=== PATIENT | female | born 1990 | race Caucasian/White ===

== ENCOUNTER 2017-09-08 22:53 | Emergency (ER) | payer BC, MEDICAID ==
[~2017-09-08] VITALS: Ht 162.6 cm; Wt 99.8 kg
[~2017-09-08 22:53] MED LIST: DULO20CA PO; DULO20CA18 PO; IBP800T PO; IBUP-1773 PO; IBUP-30 PO; NAPR500T3 PO; PREN1TAB86 PO; SULF1TAB35 PO; TRAM-42 PO; TRAM50TA2 PO
[2017-09-09] MEDS ORDERED: NS IV 1000 ML 1,000 ML IV ONE (00:11)
[2017-09-09] MEDS ORDERED: KETOROLAC 30 MG/ML VIAL IVP STA (00:11)
--- NOTE | 2017-09-09 00:12 | ED GU-Female ---
General Chief Complaint: Abdominal/GI Problems Stated Complaint: R SIDE PELVIC PAIN Nursing Triage Note: right lower abdominal pain x4hrs. Nursing Sepsis Screen: No Definite Risk Source: patient Exam Limitations: no limitations (SYLWIA AUSTIN) History of Present Illness Time seen by provider: 00:02 Initial Comments 26 yo female patient presents to the ED with c/o RLQ pain x4 hours. Reports a h /o similar pain with ruptured ovarian cysts, but states on this occasion pain is worse with a deep breath. Denies fever, chills, n/v/d. Timing/Duration: getting worse, other (4 hour onset) Severity/Quality: aching, sharp Location: RLQ Radiation: LLQ, suprapubic Activities at Onset: none Prior Genitourinary Problems: similar symptoms Modifying Factors: Worsens With Movement, Worsens With Palpation (SYLWIA AUSTIN) Allergies and Home Medications Allergies Coded Allergies: sulfamethoxazole (Verified Allergy, Intermediate, NAUSEA, 10/01/16) NAUSEA/VOMITING trimethoprim (Verified Allergy, Intermediate, NAUSEA, 10/01/16) NAUSEA/VOMITING Home Medications No Active Prescriptions or Reported Meds Constitutional: No chills, No dizziness, No fever, No malaise EENTM: no symptoms reported Respiratory: No cough, No short of breath Cardiovascular: No chest pain, No edema, No palpitations, No syncope Gastrointestinal: abdominal pain, No constipation, No diarrhea, No melena, No nausea, No vomiting Genitourinary: denies burning, denies discharge, denies dysuria, denies frequency, denies flank pain, denies hematuria : No LMP: Aug 25, 2017 Musculoskeletal: No back pain Skin: no symptoms reported Psychiatric/Neurological: No Symptoms Reported (SYLWIA AUSTIN) All Other Systemes Reviewed Negative Unless Noted: Yes (Negative excepted noted.) (SYLWIA AUSTIN) Past Mrxdyoh-Kvlepy-Cykdxm Hx Patient Social History Alcohol Use: Rarely Uses Recreational Drug Use: No Smoking Status: Never a Smoker 2nd Hand Smoke Exposure: No Recent Foreign Travel: No Contact w/Someone Who Travel: No Recent Infectious Disease Expo: No Recent Hopitalizations: No (SYLWIA AUSTIN) Immunizations Up To Date Tetanus Booster (TDap): Less than 5yrs PED Vaccines UTD: Yes Date of Influenza Vaccine: Aug 20, 2016 (SYLWIA AUSTIN) Seasonal Allergies Seasonal Allergies: No (SYLWIA AUSTIN) Surgeries History of Surgeries: No (SYLWIA AUSTIN) Respiratory History of Respiratory Disorde: No Currently Using CPAP: No Currently Using BIPAP: No (SYLWIA AUSTIN) Cardiovascular History of Cardiac Disorders: No (SYLWIA AUSTIN) Neurological History of Neurological Disord: No (SYLWIA AUSTIN) Reproductive System : No Hx Reproductive Disorders: No Sexually Transmitted Disease: No HIV/AIDS: No Female Reproductive Disorders: Denies (SYLWIA AUSTIN) Genitourinary History of Genitourinary Disor: No (SYLWIA AUSTIN) Gastrointestinal History of Gastrointestinal Di: No (SYLWIA AUSTIN) Musculoskeletal History of Musculoskeletal Dis: No Musculoskeletal Disorders: Chronic Back Pain (SYLWIA AUSTIN) Endocrine History of Endocrine Disorders: No (SYLWIA AUSTIN) HEENT History of HEENT Disorders: No Loss of Vision: Bilateral (SYLWIA AUSTIN) Cancer History of Cancer: No (SYLWIA AUSTIN) Psychosocial History of Psychiatric Problem: No (SYLWIA AUSTIN) Integumentary History of Skin or Integumenta: No (SYLWIA AUSTIN) Blood Transfusions History of Blood Disorders: No Adverse Reaction to a Blood Tr: No (SYLWIA AUSTIN) Reviewed Nursing Assessment Reviewed/Agree w Nursing PMH: Yes (SYLWIA AUSTIN) Family Medical History Significant Family History: No Pertinent Family Hx Family Medial History: JOLIE 19 MOTHER Diabetes mellitus 19 MOTHER ENDOMETREAL 19 MOTHER FH: breast cancer in first degree relative Hypercholesterolemia 19 FATHER Hypertension 19 FATHER Malignant neoplasm of endometrium (SYLWIA AUSTIN) Family Medial History: JOLIE 19 MOTHER Diabetes mellitus 19 MOTHER ENDOMETREAL 19 MOTHER FH: breast cancer in first degree relative Hypercholesterolemia 19 FATHER Hypertension 19 FATHER Malignant neoplasm of endometrium (RODRIGUEZ CACERES) Physical Exam Vital Signs Vital Sign - Last 12Hours 09/08/17 23:43 Temp 97.8 Pulse 73 Resp 18 B/P (MAP) 130/95 Pulse Ox 98 O2 Delivery Room Air (RODRIGUEZ CACERES) Vital Signs Capillary Refill : Less Than 3 Seconds (SYLWIA AUSTIN) General Appearance: WD/WN, no apparent distress HEENT: PERRL/EOMI, pharynx normal Neck: supple, normal inspection Cardiovascular: normal peripheral pulses, regular rate, rhythm, no edema, no murmur Respiratory: lungs clear, normal breath sounds, no respiratory distress, no accessory muscle use Gastrointestinal: normal bowel sounds, soft, no organomegaly, No distended, guarding (RLQ and suprapubic), No rebound, tenderness (BLQ and suprapubic) Back: normal inspection, no vertebral tenderness, CVA tenderness (R), No CVA tenderness (L) Neurologic/Psychiatric: alert, normal mood/affect, oriented x 3 Skin: normal color, warm/dry (SYLWIA AUSTIN) Progress/Results/Core Measures Results/Orders Lab Results Laboratory Tests Test 09/09/17 00:58 Range/Units White Blood Count 12.8 H 4.3-11.0 10^3/uL Red Blood Count 4.98 4.35-5.85 10^6/uL Hemoglobin 14.3 11.5-16.0 G/DL Hematocrit 44 35-52 % Mean Corpuscular Volume 87 80-99 FL Mean Corpuscular Hemoglobin 29 25-34 PG Mean Corpuscular Hemoglobin Concent 33 32-36 G/DL Red Cell Distribution Width 13.4 10.0-14.5 % Platelet Count 323 130-400 10^3/uL Mean Platelet Volume 10.4 7.4-10.4 FL Neutrophils (%) (Auto) 60 42-75 % Lymphocytes (%) (Auto) 30 12-44 % Monocytes (%) (Auto) 8 0-12 % Eosinophils (%) (Auto) 1 0-10 % Basophils (%) (Auto) 0 0-10 % Neutrophils # (Auto) 7.7 1.8-7.8 X 10^3 Lymphocytes # (Auto) 3.9 1.0-4.0 X 10^3 Monocytes # (Auto) 1.1 H 0.0-1.0 X 10^3 Eosinophils # (Auto) 0.1 0.0-0.3 10^3/uL Basophils # (Auto) 0.0 0.0-0.1 10^3/uL Sodium Level 140 135-145 MMOL/L Potassium Level 3.7 3.6-5.0 MMOL/L Chloride Level 104 98-107 MMOL/L Carbon Dioxide Level 22 21-32 MMOL/L Anion Gap 14 5-14 MMOL/L Blood Urea Nitrogen 9 7-18 MG/DL Creatinine 0.83 0.60-1.30 MG/DL Estimat Glomerular Filtration Rate > 60 BUN/Creatinine Ratio 11 Glucose Level 89 70-105 MG/DL Calcium Level 9.7 8.5-10.1 MG/DL Total Bilirubin 0.3 0.1-1.0 MG/DL Aspartate Amino Transf (AST/SGOT) 15 5-34 U/L Alanine Aminotransferase (ALT/SGPT) 16 0-55 U/L Alkaline Phosphatase 57 40-136 U/L C-Reactive Protein High Sensitivity 0.38 0.00-0.50 MG/DL Total Protein 8.4 H 6.4-8.2 GM/DL Albumin 4.7 H 3.2-4.5 GM/DL (RODRIGUEZ CACERES) Medications Given in ED Current Medications Medications Dose Ordered Sig/Joo Route Start Time Stop Time Status Last Admin Dose Admin Sodium Chloride 1,000 ml @ 0 mls/hr Q0M ONCE IV 09/09/17 00:11 09/09/17 00:12 DC 09/09/17 01:10 999 MLS/HR (RODRIGUEZ CACERES) Vital Signs/I&O Vital Sign - Last 12Hours 09/08/17 23:43 Temp 97.8 Pulse 73 Resp 18 B/P (MAP) 130/95 Pulse Ox 98 O2 Delivery Room Air (RODRIGUEZ CACERES) Blood Pressure Mean: 107 Progress Note : Time: 03:18 Progress Note Patient has not produced urine yet however she is no longer having any pain and we discussed results the ultrasound and she does not want to wait around for her urine. She says she will follow up with her primary care physician. (RODRIGUEZ CACERES) Diagnostic Imaging Diagonstic Imaging: Ultrasound Plain Films/CT/US/NM/MRI: pelvis Reviewed: Reviewed by Me (radiology report reviewed by me) (SYLWIA AUSTIN) Comments Uterus cervix is normal in size with a prominent endometrium measuring 1.5 cm without myometrial masses. Right and left ovaries are not visualized there is no free fluids. No acute findings. Ovaries were not visualized. (RODRIGUEZ CACERES) Departure Impression Impression: Primary Impression: Abdominal pain Qualified Codes: R10.9 - Unspecified abdominal pain Disposition: HOME, SELF-CARE Condition: Improved Departure-Patient Inst. Decision time for Depature: 03:19 (RODRIGUEZ CACERES) Referrals: MELIDA SUTTON DO (PCP) Primary Care Physician DEAN TATUM (Family) Primary Care Physician Patient Instructions: Acute Abdomen (Belly Pain), Adult (DC) Add. Discharge Instructions: Drink plenty of fluids and if your symptoms return or you start to have new or worsening symptoms such as fever, nausea vomiting then you should follow up with your primary care physician. All discharge instructions reviewed with patient and/or family. Voiced understanding. Scripts No Active Prescriptions or Reported Meds Copy Copies To 1: MELIDA SUTTON GRETCHEN L PA Sep 09, 2017 00:12 RODRIGUEZ CACERES Sep 09, 2017 03:21
[2017-09-09 01:10] LABS: BASOPHILS % (AUTO) 0 % (0-10); EOSINOPHILS # (AUTO) 0.1 10^3/uL (0.0-0.3); EOSINOPHILS % (AUTO) 1 % (0-10); LYMPHOCYTES # (AUTO) 3.9 X 10^3 (1.0-4.0); LYMPHOCYTES % (AUTO) 30 % (12-44); MEAN CORPUSCULAR HEMOGLOBIN 29 PG (25-34); MEAN CORPUSCULAR HGB CONC 33 G/DL (32-36); MEAN CORPUSCULAR VOLUME 87 FL (80-99); MEAN PLATELET VOLUME 10.4 FL (7.4-10.4); MONOCYTES # (AUTO) 1.1 X 10^3 (0.0-1.0); MONOCYTES % (AUTO) 8 % (0-12); NEUTROPHILS # (AUTO) 7.7 X 10^3 (1.8-7.8); NEUTROPHILS % (AUTO) 60 % (42-75); PLATELET COUNT 323 10^3/uL (130-400); RED BLOOD COUNT 4.98 10^6/uL (4.35-5.85); RED CELL DISTRIBUTION WIDTH 13.4 % (10.0-14.5); WHITE BLOOD COUNT 12.8 10^3/uL (4.3-11.0)
[2017-09-09 01:39] LABS: ALANINE AMINOTRANSFERASE 16 U/L (0-55); ALBUMIN 4.7 GM/DL (3.2-4.5); ANION GAP 14 MMOL/L (5-14); ASPARTATE AMINO TRANSFERASE 15 U/L (5-34); BILIRUBIN,TOTAL 0.3 MG/DL (0.1-1.0); BLOOD UREA NITROGEN 9 MG/DL (7-18); BUN/CREATININE RATIO 11; CALCIUM 9.7 MG/DL (8.5-10.1); CARBON DIOXIDE 22 MMOL/L (21-32); CHLORIDE 104 MMOL/L (98-107); CREATININE SERUM 0.83 MG/DL (0.60-1.30); GFR ESTIMATED > 60; GLUCOSE 89 MG/DL (70-105); POTASSIUM 3.7 MMOL/L (3.6-5.0); SODIUM 140 MMOL/L (135-145); TOTAL PROTEIN 8.4 GM/DL (6.4-8.2); hs C REACTIVE PROTEIN 0.38 MG/DL (0.00-0.50)
[2017-09-09 03:28] VITALS: BP 123/93
--- OUTSIDE RECORDS SUMMARY | 2017-09-09 06:43 | XMS REPORT ---
Author Author COURT HAGEN [facility] Address [address] [place] [address] Care Team Providers Care Machine Shop Helper Name Role Phone COURT HAGEN Unavailable PROBLEMS Type Condition ICD9-CM Code [id number] Code Onset Dates Condition Status SNOMED Code Problem Gestational hypertension, third trimester O13.3 Active 91648914 Problem care in third trimester Z34.93 Active 658202182 Assessment depression F53 Oct, Active 31059708 Problem Family history of breast cancer in mother Z80.3 Active 008758723 Problem History of mixed hyperlipidemia Z86.39 Active 315406088 ALLERGIES Substance Reaction Event Type Date Status Bactrim nausea/vomiting Drug Allergy Oct, Active SOCIAL HISTORY No smoking Hx information available PLAN OF CARE VITAL SIGNS MEDICATIONS Unknown Medications RESULTS No Results PROCEDURES Procedure Date Ordered Related Diagnosis Body Site Psych diagnostic evaluation, new patient Nov 05, 2016 IMMUNIZATIONS No Known Immunizations
--- OUTSIDE RECORDS SUMMARY | 2017-09-09 06:43 | XMS REPORT ---
Author Author JENNY JAIME [facility] eClinicalWorks Address Unknown Phone Unavailable Care Team Providers Care Dock Boss Name Role Phone JENNY JAIME Unavailable Allergies No Known Allergies Problems Problem Type Condition Code Onset Dates Condition Status Problem Other benign neoplasm of skin, unspecified D23.9 Active Problem Abnormal glucose R73.09 Active Problem Obesity, unspecified E66.9 Active Problem Family history of diabetes mellitus Z83.3 Active Problem Fibrocystic changes of left breast N60.12 Active Problem OCP (oral contraceptive pills) initiation Z30.9 Active Problem Family history of malignant neoplasm of endometrium Z80.49 Active Problem Right-sided low back pain with right-sided sciatica M54.41 Active Problem Fibrocystic changes of right breast N60.11 Active Problem Family history of breast cancer Z80.3 Active Assessment Yeast infection B37.9 Active Problem Low back pain M54.5 Active Problem Cervical back pain with evidence of disc disease M50.90 Active Medications Medication Code System Code Instructions Start Date End Date Status Dosage Diflucan [facility] [address]-90 150 MG Orally Oct 01, 2015 Oct 02, 2015 1 tablet Results No Known Results Summary Purpose eClinicalWorks Submission
--- OUTSIDE RECORDS SUMMARY | 2017-09-09 06:43 | XMS REPORT ---
Author Author CATY RILEY Organization eClinical[employer] Address Unknown Phone Unavailable Care Team Providers Care Senior Education Specialist Name Role Phone CATY RILEY CP Unavailable Allergies, Adverse Reactions, Alerts Substance Reaction Event Type Bactrim nausea/vomiting Drug Allergy Problems Problem Type Condition Code Onset Dates Condition Status Problem History of mixed hyperlipidemia Z86.39 Active Assessment screening for streptococcus B Z36 Active Problem Family history of breast cancer in mother Z80.3 Active Assessment Normal , first Z34.00 Active Assessment 36 weeks gestation of Z3A.36 Active Medications Medication Code System Code Instructions Start Date End Date Status Dosage Tylenol [facility] [address]-48 325 MG Orally every 6 hrs 2 tablets as needed Vitamin [facility] [address] 27-0.8 MG Orally not defined Procedures Procedure Coding System Code Date DETECT AGNT MULT, DNA, AMPLI CPT-4 44006 Sep 10, 2016 Office Visit, Est Pt., Level 3 CPT-4 12722 Sep 10, 2016 URINE-NO MICRO CPT-4 53403 Sep 10, 2016 Vital Signs Date/Time: Sep 10, 2016 Cardiac Monitoring Heart Rate 100 bpm Weight 244 lbs Height 63 in BMI 43.223 Index Blood Pressure Diastolic 83 mmHg Blood Pressure Systolic 132 mmHg Results Name Result Date Reference Range Unit Abnormality Flag UA OB DIP (IN HOUSE) ----Glucose negative 20160910 ----Protein negative [id number] Summary Purpose eClinicalWorks Submission
--- OUTSIDE RECORDS SUMMARY | 2017-09-09 06:43 | XMS REPORT ---
Author Author CATY RILEY Organization [employer] Address Unknown Phone Unavailable Care Team Providers Care Five Roll Refiner Batch Mixer Name Role Phone CATY RILEY CP Unavailable Allergies, Adverse Reactions, Alerts Substance Reaction Event Type Bactrim nausea/vomiting Drug Allergy Problems Problem Type Condition Code Onset Dates Condition Status Problem care in third trimester Z34.93 Active Problem Family history of breast cancer in mother Z80.3 Active Problem Gestational hypertension, third trimester O13.3 Active Assessment Gestational hypertension, third trimester O13.3 Active Assessment 39 weeks gestation of Z3A.39 Active Problem History of mixed hyperlipidemia Z86.39 Active Assessment care in third trimester Z34.93 Active Medications Medication Code System Code Instructions Start Date End Date Status Dosage Vitamin [facility] [address] 27-0.8 MG Orally not defined Tylenol [facility] [address]-32 325 MG Orally every 6 hrs 2 tablets as needed Procedures Procedure Coding System Code Date URINE-NO MICRO CPT-4 45959 Oct 01, 2016 Office Visit, Est Pt., Level 2 CPT-4 27987 Oct 01, 2016 Vital Signs Date/Time: Oct 01, 2016 Cardiac Monitoring Heart Rate 80 bpm Weight 253 lbs Height 63 in BMI 44.817 Index Blood Pressure Diastolic 90 mmHg Blood Pressure Systolic 124 mmHg Results Name Result Date Reference Range Unit Abnormality Flag UA OB DIP (IN HOUSE) ----Glucose negative 20161001 ----Protein trace 20161001 Summary Purpose eClinicalWorks Submission
--- OUTSIDE RECORDS SUMMARY | 2017-09-09 06:43 | XMS REPORT ---
Author Author CATY RILEY e[employer] Address Unknown Phone Unavailable Care Team Providers Care Supervisor Shop Name Role Phone CATY RILEY CP Unavailable Allergies No Known Allergies Problems Problem Type Condition Code Onset Dates Condition Status Problem History of mixed hyperlipidemia Z86.39 Active Assessment care, first in third trimester Z34.03 Active Problem Family history of breast cancer in mother Z80.3 Active Assessment 37 weeks gestation of Z3A.37 Active Medications No Known Medications Procedures Procedure Coding System Code Date Office Visit, Est Pt., Level 2 CPT-4 10890 Sep 17, 2016 URINE-NO MICRO CPT-4 71763 Sep 17, 2016 Vital Signs Date/Time: Sep 17, 2016 Blood Pressure Systolic 126 mmHg Weight 247.8 lbs Height 63 in BMI 43.896 Index Blood Pressure Diastolic 78 mmHg Results Name Result Date Reference Range Unit Abnormality Flag UA OB DIP (IN HOUSE) ----Glucose negative 20160917 ----Protein negative 20160917 Summary Purpose eClinicalWorks Submission
--- OUTSIDE RECORDS SUMMARY | 2017-09-09 06:43 | XMS REPORT ---
Author Author DEAN TATUM Organization eClinical[employer] Address Unknown Phone Unavailable Care Team Providers Care Launching Pad Mechanic Name Role Phone DEAN TATUM CP Unavailable Allergies, Adverse Reactions, Alerts Substance Reaction Event Type Bactrim nausea/vomiting Drug Allergy Problems Problem Type Condition Code Onset Dates Condition Status Problem History of mixed hyperlipidemia Z86.39 Active Assessment Family history of breast cancer in mother Z80.3 Active Problem Family history of breast cancer in mother Z80.3 Active Assessment History of mixed hyperlipidemia Z86.39 Active Medications Medication Code System Code Instructions Start Date End Date Status Dosage Vitamin [facility] [address] 27-0.8 MG Orally not defined Tylenol [facility] [address]-40 325 MG Orally every 6 hrs 2 tablets as needed Procedures Procedure Coding System Code Date Office Visit, Est Pt., Level 3 CPT-4 92133 Jun 25, 2016 Vital Signs Date/Time: Jun 25, 2016 Cardiac Monitoring Heart Rate 78 bpm Weight 233.0 lbs Height 63 in BMI 41.27 Index Blood Pressure Diastolic 80 mmHg Blood Pressure Systolic 122 mmHg Results No Known Results Summary Purpose eClinicalWorks Submission
--- OUTSIDE RECORDS SUMMARY | 2017-09-09 06:43 | XMS REPORT ---
Author Author CATY RILEY eClinical[employer] Address Unknown Phone Unavailable Care Team Providers Care Agriculturist Name Role Phone CATY RILEY CP Unavailable Allergies No Known Allergies Problems Problem Type Condition Code Onset Dates Condition Status Problem History of mixed hyperlipidemia Z86.39 Active Assessment Rh negative status during , unspecified trimester O09.899 Active Problem Family history of breast cancer in mother Z80.3 Active Medications No Known Medications Procedures Procedure Coding System Code Date THER/PROPH/DIAG INJ, SC/IM CPT-4 77112 Jul 23, 2016 RH IG, FULL-DOSE, IM CPT-4 89052 Jul 23, 2016 Results No Known Results Summary Purpose eClinicalWorks Submission
--- OUTSIDE RECORDS SUMMARY | 2017-09-09 06:43 | XMS REPORT ---
Author Author CATY RILEY Organization [facility] Address [address] [place] [address] Care Team Providers Care Restorative Rehab Aide Name Role Phone HENNA RILEYHANY Unavailable PROBLEMS Type Condition ICD9-CM Code MSU56-WV Code Onset Dates Condition Status SNOMED Code Problem Migraine with aura and without status migrainosus, not intractable G43.109 Active 9307168 Problem Migraine without aura and without status migrainosus, not intractable G43.009 Active 934331776 Problem Family history of breast cancer in mother Z80.3 Active 232816513 Problem History of gestational hypertension Z87.59 Active 727103800 Problem History of mixed hyperlipidemia Z86.39 Active 147418303 ALLERGIES Substance Reaction Event Type Date Status Bactrim nausea/vomiting Drug Allergy Oct, Active SOCIAL HISTORY No smoking Hx information available PLAN OF CARE Activity Details Follow Up 2 Weeks Reason:Perineal infection VITAL SIGNS Height 63 in 2016-11-19 Weight 238.7 lbs 2016-11-19 Temperature 97.8 degrees Fahrenheit 2016-11-19 Heart Rate 76 bpm 2016-11-19 Respiratory Rate 18 2016-11-19 BMI 42.284 kg/m2 2016-11-19 Blood pressure systolic 118 mmHg 2016-11-19 Blood pressure diastolic 76 mmHg 2016-11-19 MEDICATIONS Medication Instructions Dosage Frequency Start Date End Date Duration Status Vitamin 27-0.8 MG Active Clindamycin HCl 300 MG Orally every 6 hrs 1 capsule 6h Oct,Nov 10 days Active RESULTS Name Result Date Reference Range CULTURE, GENITAL 2016-11-19 Genital Culture, Routine Final report Result 1 PROCEDURES Procedure Date Ordered Related Diagnosis Body Site Office Visit, Est Pt., Level 3 Nov 19, 2016 CULTURE, BACTERIA, OTHER Nov 19, 2016 IMMUNIZATIONS No Known Immunizations
--- OUTSIDE RECORDS SUMMARY | 2017-09-09 06:43 | XMS REPORT ---
Author Author DEAN TATUM Organization e[employer] Address Unknown Phone Unavailable Care Team Providers Care Medical Concierge Name Role Phone DEAN TATUM CP Unavailable Allergies No Known Allergies Problems Problem Type Condition Code Onset Dates Condition Status Problem History of mixed hyperlipidemia Z86.39 Active Problem Family history of breast cancer in mother Z80.3 Active Medications No Known Medications Vital Signs Date/Time: Sep 11, 2016 Blood Pressure Diastolic 82 mmHg Blood Pressure Systolic 127 mmHg Height 63 in Results No Known Results Summary Purpose eClinicalWorks Submission
--- OUTSIDE RECORDS SUMMARY | 2017-09-09 06:43 | XMS REPORT ---
Author Author CATY RILEY [facility] eClinicalWorks Address Unknown Phone Unavailable Care Team Providers Care Video Control Operator Name Role Phone CATY RILEY CP Unavailable Allergies, Adverse Reactions, Alerts Substance Reaction Event Type Bactrim nausea/vomiting Drug Allergy Problems Problem Type Condition Code Onset Dates Condition Status Problem History of mixed hyperlipidemia Z86.39 Active Assessment care, first in third trimester Z34.03 Active Problem Family history of breast cancer in mother Z80.3 Active Assessment 34 weeks gestation of Z3A.34 Active Assessment Encounter for immunization Z23 Active Medications Medication Code System Code Instructions Start Date End Date Status Dosage Tylenol [facility] [address]-83 325 MG Orally every 6 hrs 2 tablets as needed Vitamin [facility] [address] 27-0.8 MG Orally not defined Procedures Procedure Coding System Code Date Office Visit, Est Pt., Level 2 CPT-4 79265 Aug 27, 2016 TDAP (BOOSTRIX) CPT-4 36332 Aug 27, 2016 URINALYSIS, AUTO, W/O SCOPE CPT-4 46787 Aug 27, 2016 SINGLE IMMUNIZATION ADMIN CPT-4 53543 Aug 27, 2016 Vital Signs Date/Time: Aug 27, 2016 Cardiac Monitoring Heart Rate 84 bpm Weight 239.3 lbs Height 63 in BMI 42.39 Index Blood Pressure Diastolic 74 mmHg Blood Pressure Systolic 118 mmHg Results Name Result Date Reference Range Unit Abnormality Flag UA LONG DIP (IN HOUSE) ----CHARLIE negative 20160827 ----NIT negative 20160827 ----SG 1.025 20160827 ----KET trace 20160827 ----RED negative 20160827 ----GLU negative 20160827 ----Odor no 20160827 ----pH 6.5 20160827 ----BLO negative 20160827 ----URO 0.2 20160827 ----Protein negative 20160827 ----Lot # [id number] ----Exp date [id number] ----Clarity slightly cloudy 20160827 ----Color yellow 20160827 Immunizations Vaccine Administration Date TDAP (BOOSTRIX) Aug 27, 2016 Summary Purpose eClinicalWorks Submission
--- OUTSIDE RECORDS SUMMARY | 2017-09-09 06:44 | XMS REPORT ---
Author Author CATY RILEY eClinicalWorks Address Unknown Phone Unavailable Care Team Providers Care Engineering Systems Analyst Name Role Phone CATY RILEY CP Unavailable Allergies No Known Allergies Problems Problem Type Condition Code Onset Dates Condition Status Problem Low back pain M54.5 Active Problem Obesity, unspecified E66.9 Active Problem Cervical back pain with evidence of disc disease M50.90 Active Assessment 22 weeks gestation of Z3A.22 Active Assessment Second trimester Z33.1 Active Problem Oth diseases and conditions compl preg/chldbrth O99.89 Active Problem Underimmunization status Z28.3 Active Problem Rh negative state in antepartum period, first trimester O09.891 Active Problem Right-sided low back pain with right-sided sciatica M54.41 Active Problem Abnormal glucose R73.09 Active Problem Fibrocystic changes of left breast N60.12 Active Problem Fibrocystic changes of right breast N60.11 Active Medications Medication Code System Code Instructions Start Date End Date Status Dosage Vitamin [facility] [address] 27-0.8 MG Orally not defined Procedures Procedure Coding System Code Date Office Visit, Est Pt., Level 2 CPT-4 34226 June 05, 2016 URINE-NO MICRO CPT-4 74072 June 05, 2016 Vital Signs Date/Time: June 05, 2016 Cardiac Monitoring Heart Rate 80 bpm Weight 230.7 lbs Height 63 in Blood Pressure Diastolic 79 mmHg Blood Pressure Systolic 134 mmHg Results No Known Results Summary Purpose eClinicalWorks Submission
--- OUTSIDE RECORDS SUMMARY | 2017-09-09 06:44 | XMS REPORT ---
Author Author CATY RILEY [facility] eClinicalWorks Address Unknown Phone Unavailable Care Team Providers Care Supervisor Microfilm Duplicating Unit Name Role Phone CATY RILEY CP Unavailable Allergies No Known Allergies Problems Problem Type Condition Code Onset Dates Condition Status Problem care in third trimester Z34.93 Active Problem Family history of breast cancer in mother Z80.3 Active Problem Gestational hypertension, third trimester O13.3 Active Problem History of mixed hyperlipidemia Z86.39 Active Medications No Known Medications Results No Known Results Summary Purpose eClinicalWorks Submission
--- OUTSIDE RECORDS SUMMARY | 2017-09-09 06:44 | XMS REPORT ---
Author CATY Dias Organization eClinicalWorks Address Unknown Phone Unavailable Care Team Providers Care Laborer [employer] Name Role Phone CATY RILEY CP Unavailable Allergies, Adverse Reactions, Alerts Substance Reaction Event Type Bactrim nausea/vomiting Drug Allergy Problems Problem Type Condition Code Onset Dates Condition Status Problem Family history of breast cancer in mother Z80.3 Active Problem History of mixed hyperlipidemia Z86.39 Active Problem care in third trimester Z34.93 Active Assessment care in third trimester Z34.93 Active Assessment 38 weeks gestation of Z3A.38 Active Medications Medication Code System Code Instructions Start Date End Date Status Dosage Tylenol [facility] [address]-17 325 MG Orally every 6 hrs 2 tablets as needed Vitamin [facility] [address] 27-0.8 MG Orally not defined Procedures Procedure Coding System Code Date URINE-NO MICRO CPT-4 15183 Sep 24, 2016 Office Visit, Est Pt., Level 2 CPT-4 62863 Sep 24, 2016 Vital Signs Date/Time: Sep 24, 2016 Cardiac Monitoring Heart Rate 80 bpm Weight 251 lbs Height 63 in BMI 44.463 Index Blood Pressure Diastolic 84 mmHg Blood Pressure Systolic 130 mmHg Results Name Result Date Reference Range Unit Abnormality Flag UA OB DIP (IN HOUSE) ----Glucose negative [id number] ----Protein trace [id number] Summary Purpose eClinicalWorks Submission
--- OUTSIDE RECORDS SUMMARY | 2017-09-09 06:44 | XMS REPORT ---
Author Author NASH OSBORNE Organization [facility] Address [address] [place] [address] Care Team Providers Care Lead Software Architect Name Role Phone NASH OSBORNE Unavailable PROBLEMS Type Condition ICD9-CM Code [id number] Code Onset Dates Condition Status SNOMED Code Problem Migraine with aura and without status migrainosus, not intractable G43.109 Active 2919664 Problem Migraine without aura and without status migrainosus, not intractable G43.009 Active 455967413 Problem History of mixed hyperlipidemia Z86.39 Active 451049062 Problem History of gestational hypertension Z87.59 Active 554924570 Problem Family history of breast cancer in mother Z80.3 Active 426077573 ALLERGIES Substance Reaction Event Type Date Status Bactrim nausea/vomiting Drug Allergy Oct, Active SOCIAL HISTORY No smoking Hx information available PLAN OF CARE Activity Details Follow Up prn Reason: VITAL SIGNS Height 63 in 2016-11-05 Weight 236.4 lbs 2016-11-05 Temperature 98.4 degrees Fahrenheit 2016-11-05 Heart Rate 72 bpm 2016-11-05 Respiratory Rate 20 2016-11-05 BMI 41.87 kg/m2 2016-11-05 Blood pressure systolic 90 mmHg 2016-11-05 Blood pressure diastolic 60 mmHg 2016-11-05 MEDICATIONS Medication Instructions Dosage Frequency Start Date End Date Duration Status Amoxicillin 500 MG Orally every 12 hrs 1 capsule 12h 13 Oct, 2016 Oct, 10 day(s) Active RESULTS Name Result Date Reference Range STREP A (IN HOUSE) 2016-11-05 STREP A positive Control + Lot # [id number] Exp date PROCEDURES Procedure Date Ordered Related Diagnosis Body Site STREP A ASSAY W/OPTIC Nov 05, 2016 Office Visit, Est Pt., Level 3 Nov 05, 2016 IMMUNIZATIONS No Known Immunizations
--- OUTSIDE RECORDS SUMMARY | 2017-09-09 06:44 | XMS REPORT ---
Author Author RENA MORALES [facility] [place] eClinicalWorks Address Unknown Phone Unavailable Care Team Providers Care Wholesale Manager Name Role Phone RENA MORALES CP Unavailable Allergies, Adverse Reactions, Alerts Substance Reaction Event Type N.K.D.A. Info Not Available Non Drug Allergy Problems Problem Type Condition ICD-9 Code Onset Dates Condition Status Assessment Lumbar back pain 724.2 Active Assessment Routine adult health maintenance V70.0 Active Problem Lumbar back pain 724.2 Active Problem Routine adult health maintenance V70.0 Active Problem Cervical back pain with evidence of disc disease 722.91 Active Problem Benign neoplasm of skin, site unspecified 216.9 Active Assessment Cervical back pain with evidence of disc disease 722.91 Active Problem Other abnormal glucose 790.29 Active Problem Obesity, unspecified 278.00 Active Medications Medication Code System Code Instructions Start Date End Date Status Dosage Diclofenac Sodium [facility] [address]-72 50 MG Orally Twice a day Jul 17, 2015 Sep 15, 2015 1 tablet Procedures Procedure Coding System Code Date Office Visit, Est Pt., Level 4 CPT-4 83521 Jul 17, 2015 Vital Signs Date/Time: Jul 17, 2015 Temperature 98.8 F Weight 232.5 lbs Height 63 in BMI 41.18 Index Blood Pressure Diastolic 80 mmHg Blood Pressure Systolic 128 mmHg Cardiac Monitoring Heart Rate 88 bpm Results No Known Results Summary Purpose eClinicalWorks Submission
--- OUTSIDE RECORDS SUMMARY | 2017-09-09 06:44 | XMS REPORT ---
Author Author RENA MORALES [facility] eClinicalWorks Address Unknown Phone Unavailable Care Team Providers Care Loss Control Manager Name Role Phone RENA MORALES CP Unavailable Allergies, Adverse Reactions, Alerts Substance Reaction Event Type N.K.D.A. Info Not Available Non Drug Allergy Problems Problem Type Condition Code [...] history of breast cancer Z80.3 Active Assessment Low back pain M54.5 Active Problem Low back pain M54.5 Active Problem Cervical back pain with evidence of disc disease M50.90 Active Medications Medication Code System Code Instructions Start Date End Date Status Dosage Cymbalta [facility] [address]-62 20 MG Orally Once a day Sep 21, 2015 1 capsule Excedrin Back & Body [facility] [address]-75 250-250 MG Orally every 6 hrs 2 tablets as needed Microgestin 1/20 [facility] [address]-52 1-20 MG-MCG Orally Once a day Sep 28, 2015 1 tablet Procedures Procedure Coding System Code Date Office Visit, Est Pt., Level 3 CPT-4 20229 Nov 06, 2015 Vital Signs Date/Time: Nov 06, 2015 Temperature 97.2 F Weight 233.7 lbs Height 63 in BMI 41.39 Index Blood Pressure Diastolic 72 mmHg Blood Pressure Systolic 122 mmHg Cardiac Monitoring Heart Rate 86 bpm Results No Known Results Summary Purpose eClinicalWorks Submission
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
--- OUTSIDE RECORDS SUMMARY | 2017-09-09 06:44 | XMS REPORT ---
Author Author CATY RILEY Organization [facility] Address [address] [place] [address] Care Team Providers Care Proofer [employer] Name Role Phone HENNA RILEYHANY Unavailable PROBLEMS Type Condition ICD9-CM Code UNA66-AS Code Onset Dates Condition Status SNOMED Code Problem Family history of breast cancer in mother Z80.3 Active 534967065 Problem History of mixed hyperlipidemia Z86.39 Active 946226759 Assessment care, first in third trimester Z34.03 13 Jul, 2016 Active 029634992 Assessment 31 weeks gestation of Z3A.31 13 Jul, 2016 Active 31330869 ALLERGIES Unknown Allergies SOCIAL HISTORY No smoking Hx information available PLAN OF CARE VITAL SIGNS Height 63 in 2016-08-06 Weight 238.2 lbs 2016-08-06 Heart Rate 77 bpm 2016-08-06 Respiratory Rate 18 2016-08-06 BMI 42.195 kg/m2 2016-08-06 Blood pressure systolic 123 mmHg 2016-08-06 Blood pressure diastolic 84 mmHg 2016-08-06 MEDICATIONS Medication Instructions Dosage Frequency Start Date End Date Duration Status Tylenol 325 MG Orally every 6 hrs 2 tablets as needed 6h Active Vitamin 27-0.8 MG Active RESULTS Name Result Date Reference Range UA OB DIP (IN HOUSE) 2016-08-06 Glucose Negative Protein Negative PROCEDURES Procedure Date Ordered Related Diagnosis Body Site URINE-NO MICRO Aug 06, 2016 Office Visit, Est Pt., Level 2 Aug 06, 2016 IMMUNIZATIONS No Known Immunizations
--- OUTSIDE RECORDS SUMMARY | 2017-09-09 06:44 | XMS REPORT ---
Author Author RENA MORALES [facility] eClinicalWorks Address Unknown Phone Unavailable Care Team Providers Care Control Valve Technician Name Role Phone RENA MORALES CP Unavailable Allergies, Adverse Reactions, Alerts Substance Reaction Event Type N.K.D.A. Info Not Available Non Drug Allergy Problems Problem Type Condition Code Onset Dates Condition Status Assessment Right-sided low back pain with right-sided sciatica M54.41 Active Problem Cervical back pain with evidence of disc disease 722.91 Active Problem Lumbar back pain 724.2 Active Problem Right-sided low back pain with right-sided sciatica M54.41 Active Problem Obesity, unspecified 278.00 Active Problem Benign neoplasm of skin, site unspecified 216.9 Active Problem Routine adult health maintenance V70.0 Active Problem Other abnormal glucose 790.29 Active Medications Medication Code System Code Instructions Start Date End Date Status Dosage Diclofenac Sodium [facility] [address]-93 75 MG Orally Twice a day Aug 22, 2015 Oct 21, 2015 1 tablet Excedrin Back & Body [facility] [address]-31 250-250 MG Orally every 6 hrs 2 tablets as needed Baclofen [facility] [address]-78 10 MG Orally Three times a day Aug 22, 2015 Oct 21, 2015 1 tablet with food or milk Cymbalta [facility] [address]-88 20 MG Orally Once a day Sep 21, 2015 1 capsule Procedures Procedure Coding System Code Date Office Visit, Est Pt., Level 3 CPT-4 89921 Sep 21, 2015 Vital Signs Date/Time: Sep 21, 2015 Temperature 97.7 F Weight 235.1 lbs Height 63 in BMI 41.64 Index Blood Pressure Diastolic 74 mmHg Blood Pressure Systolic 122 mmHg Cardiac Monitoring Heart Rate 84 bpm Results No Known Results Summary Purpose eClinicalWorks Submission
--- OUTSIDE RECORDS SUMMARY | 2017-09-09 06:45 | XMS REPORT ---
Author Author CATY RILEY eClinicalWorks Address Unknown Phone Unavailable Care Team Providers Care State Attorney Name Role Phone CATY RILEY CP Unavailable Allergies No Known Allergies Problems Problem Type Condition Code Onset Dates Condition Status Problem Other benign neoplasm of skin, unspecified D23.9 Active Problem Abnormal glucose R73.09 Active Problem Obesity, unspecified E66.9 Active Problem Low back pain M54.5 Active Problem Cervical back pain with evidence of disc disease M50.90 Active Problem Family history of diabetes mellitus Z83.3 Active Problem Fibrocystic changes of left breast N60.12 Active Problem OCP (oral contraceptive pills) initiation Z30.9 Active Problem Family history of malignant neoplasm of endometrium Z80.49 Active Problem Right-sided low back pain with right-sided sciatica M54.41 Active Problem Fibrocystic changes of right breast N60.11 Active Problem Family history of breast cancer Z80.3 Active Medications No Known Medications Results No Known Results Summary Purpose eClinicalWorks Submission
--- OUTSIDE RECORDS SUMMARY | 2017-09-09 06:45 | XMS REPORT ---
Author JENNY Pham eClinicalWorks Address Unknown Phone Unavailable Care Team Providers Care Public Relations Account Supervisor Name Role Phone JENNY JAIME Unavailable Allergies, Adverse Reactions, Alerts Substance Reaction Event Type N.K.D.A. Info Not Available Non Drug Allergy Problems Problem Type Condition Code Onset Dates Condition Status Problem Other benign neoplasm of skin, unspecified D23.9 Active Problem Abnormal glucose R73.09 Active Problem Obesity, unspecified E66.9 Active Problem Family history of diabetes mellitus Z83.3 Active Assessment Fibrocystic changes of right breast N60.11 Active Problem Fibrocystic changes of left breast N60.12 Active Assessment Family history of breast cancer Z80.3 Active Assessment Family history of malignant neoplasm of endometrium Z80.49 Active Problem OCP (oral contraceptive pills) initiation Z30.9 Active Problem Family history of malignant neoplasm of endometrium Z80.49 Active Problem Right-sided low back pain with right-sided sciatica M54.41 Active Problem Fibrocystic changes of right breast N60.11 Active Problem Family history of breast cancer Z80.3 Active Assessment Vaginal discharge N89.8 Active Assessment Family history of diabetes mellitus Z83.3 Active Assessment Fibrocystic changes of left breast N60.12 Active Assessment Body mass index (BMI) of 40.1-44.9 in adult Z68.41 Active Assessment Encounter for screening for malignant neoplasm of cervix Z12.4 Active Assessment Encntr for hamper maker exam (general) (routine) w/o abn findings Z01.419 Active Assessment OCP (oral contraceptive pills) initiation Z30.9 Active Problem Low back pain M54.5 Active Assessment Counseling for control, oral contraceptives Z30.9 Active Problem Cervical back pain with evidence of disc disease M50.90 Active Medications Medication Code System Code Instructions Start Date End Date Status Dosage Baclofen [facility] [address]-86 10 MG Orally Three times a day Aug 22, 2015 Oct 21, 2015 1 tablet with food or milk Diclofenac Sodium [facility] [address]-69 75 MG Orally Twice a day Aug 22, 2015 Oct 21, 2015 1 tablet Excedrin Back & Body [facility] [address]-08 250-250 MG Orally every 6 hrs 2 tablets as needed Microgestin 1/20 [facility] [address]-71 1-20 MG-MCG Orally Once a day Sep 28, 2015 1 tablet Cymbalta [facility] [address]-56 20 MG Orally Once a day Sep 21, 2015 1 capsule Procedures Procedure Coding System Code Date SPECIMEN HANDLING CPT-4 70384 Sep 28, 2015 GLYCATED HEMOGLOBIN TEST CPT-4 33852 Sep 28, 2015 URINE TEST CPT-4 74953 Sep 28, 2015 TRICHOMONAS VAGIN, DIR PROBE CPT-4 45993 Sep 28, 2015 No Charge CPT-4 20783 Sep 28, 2015 Preventive Care Est Pt. Age 18-39 CPT-4 24417 Sep 28, 2015 CULTURE, BACTERIA, OTHER CPT-4 34987 Sep 28, 2015 Vital Signs Date/Time: Sep 28, 2015 Temperature 97.7 F Weight 235.5 lbs Height 63 in BMI 41.71 Index Blood Pressure Diastolic 68 mmHg Blood Pressure Systolic 124 mmHg Cardiac Monitoring Heart Rate 82 bpm Results Name Result Date Reference Range Unit Abnormality Flag TEST, URINE (IN HOUSE) A1C (IN HOUSE) Summary Purpose eClinicalWorks Submission
--- NOTE | 2017-09-09 08:06 | Diagnostic Imaging Report ---
INDICATION: Pelvic pain. FINDINGS: Uterus measures 7.9 x 5.1 x 3.9 cm. There is diffuse thickening of the endometrium measuring 1.6 cm. No evidence of intrauterine or ectopic . There are no masses. Ovaries are not visualized. There is no free fluid. IMPRESSION: 1. There is no evidence of intrauterine . 2. Diffuse endometrial thickening noted due to secretory phase or from miscarriage. Dictated by: Dictated on workstation # [id number]
== END 2017-09-09 03:23 | disposition home or self-care (01) ==
LOC: EDUNIT# 22:53 → ER 22:55
DX: R10.31 Right lower quadrant pain (principal); Z80.49 Family history of malignant neoplasm of other genital organs; Z80.3 Family history of malignant neoplasm of breast
CPT/HCPCS: 36415; 76830; 80053; 85025; 86141

== ENCOUNTER 2018-01-05 22:43 | Emergency (ER) | payer MEDICAID ==
[~2018-01-05] VITALS: Ht 162.6 cm; Wt 104.3 kg
[~2018-01-05 22:43] MED LIST changes: -NAPR500T3 PO; +NAPR500T4 PO
[2018-01-06] MEDS ORDERED: NS IV 1000 ML 1,000 ML IV ONE (00:46)
[2018-01-06] MEDS ORDERED: PROMETHAZINE INJ 25 MG/ML (PHENERGAN) AMP IVP ONE (01:00)
[2018-01-06] MEDS ORDERED: ONDA4TAB8 SL (02:39)
--- NOTE | 2018-01-06 02:39 | ED Head Injury ---
General Chief Complaint: Head/Cervical Problems Stated Complaint: HEAD PAIN Nursing Triage Note: headache, neck pain s/p fall. denies loc. Source: patient Exam Limitations: no limitations History of Present Illness Date Seen by Provider: Jan 05, 2018 Time Seen by Provider: 00:39 Initial Comments This 27-year-old young lady ambulates in to emergency room with intense headache since January 03. She fell that day when she slipped on ice and struck her head on the screen door. There was no loss of consciousness. However, she has had worsening symptoms of vision changes and (seeing spots) and nausea since that time. She does have a history of migraine headaches but this is atypical for her headaches. C-collar was applied during initial assessment due to neck pain. Allergies and Home Medications Allergies Coded Allergies: sulfamethoxazole (Verified Allergy, Intermediate, NAUSEA, 10/01/16) NAUSEA/VOMITING trimethoprim (Verified Allergy, Intermediate, NAUSEA, 10/01/16) NAUSEA/VOMITING Home Medications Ondansetron 4 Mg Tab.rapdis, 4 MG SL Q4H, #10 Prescribed by: CANDICE DUGGAN on 01/06/18 0239 Constitutional: no symptoms reported Eyes: No Symptoms Reported Ears, Nose, Mouth, Throat: see HPI Respiratory: no symptoms reported Cardiovascular: no symptoms reported Gastrointestinal: see HPI Genitourinary: no symptoms reported : No Musculoskeletal: no symptoms reported Skin: no symptoms reported Psychiatric/Neurological: See HPI Endocrine: No Symptoms Reported Past Vzrhduy-Twxygk-Yefgaa Hx Patient Social History Alcohol Use: Denies Use Recreational Drug Use: No Smoking Status: Never a Smoker 2nd Hand Smoke Exposure: No Recent Foreign Travel: No Contact w/Someone Who Travel: No Recent Infectious Disease Expo: No Recent Hopitalizations: No Immunizations Up To Date Tetanus Booster (TDap): Less than 5yrs PED Vaccines UTD: Yes Date of Influenza Vaccine: Aug 20, 2016 Seasonal Allergies Seasonal Allergies: No Surgeries History of Surgeries: No Respiratory History of Respiratory Disorde: No Currently Using CPAP: No Currently Using BIPAP: No Cardiovascular History of Cardiac Disorders: No Neurological History of Neurological Disord: Yes Neurological Disorders: Headaches /Migraines Reproductive System : No Last Menstrual Period: Jan 03, 2018 Hx Reproductive Disorders: No Sexually Transmitted Disease: No HIV/AIDS: No Female Reproductive Disorders: Denies Genitourinary History of Genitourinary Disor: No Gastrointestinal History of Gastrointestinal Di: No Musculoskeletal History of Musculoskeletal Dis: Yes Musculoskeletal Disorders: Chronic Back Pain Endocrine History of Endocrine Disorders: No HEENT History of HEENT Disorders: No Loss of Vision: Bilateral Cancer History of Cancer: No Psychosocial History of Psychiatric Problem: No Integumentary History of Skin or Integumenta: No Blood Transfusions History of Blood Disorders: No Adverse Reaction to a Blood Tr: No Family Medical History Significant Family History: No Pertinent Family Hx Family Medial History: JOLIE 19 MOTHER Diabetes mellitus 19 MOTHER ENDOMETREAL 19 MOTHER FH: breast cancer in first degree relative Hypercholesterolemia 19 FATHER Hypertension 19 FATHER Malignant neoplasm of endometrium Physical Exam Vital Signs Vital Signs - First Documented 01/06/18 00:44 Temp 97.7 Pulse 79 Resp 18 B/P (MAP) 117/67 (84) Pulse Ox 99 O2 Delivery Room Air Capillary Refill : Less Than 3 Seconds General Appearance: WD/WN, no apparent distress HEENT: PERRL/EOMI, normal ENT inspection, pharynx normal, other (tenderness over the anterior central scalp with no swelling or skin changes) Neck: normal inspection, tender midline Cardiovascular: regular rate, rhythm, no edema, no murmur Respiratory: lungs clear, normal breath sounds, no respiratory distress, no accessory muscle use Extremities: normal inspection Psychiatric: alert, oriented x 3 Crainal Nerves: normal hearing, normal speech, PERRL Coordination/Gait: normal gait Motor/Sensory: no motor deficit, no sensory deficit Skin: normal color, warm/dry Rafia Coma Score Best Eye Response: (4) Open Spontaneously Best Verbal Response: (5) Oriented Best Motor Response: (6) Obeys Commands Wheeler Total: 15 Progress/Results/Core Measures Results/Orders My Orders Orders - CANDICE LOPEZ MD Ct Head/Cervical Spine Wo (01/06/18 00:46) Saline Lock/Iv-Start (01/06/18 00:46) Ns Iv 1000 Ml (Sodium Chloride 0.9%) (01/06/18 00:46) Promethazine Injection (Phenergan Injec (01/06/18 01:00) Ketorolac Injection (Toradol Injection) (01/06/18 02:45) Iv Push [employer] Ed (01/05/18 ) Medications Given in ED Vital Signs/I&O Blood Pressure Mean: 84 Progress Note : Progress Note Patient was treated with IV fluids, Toradol, and promethazine with good improvement in symptoms. Imaging was negative for acute injury. Concussion precautions reviewed. Diagnostic Imaging Diagonstic Imaging: CT Plain Films/CT/US/NM/MRI: c-spine, head Comments CT head and cervical spine viewed by me and [facility] report reviewed. No acute injuries were identified. Departure Impression Impression: Primary Impression: Concussion without loss of consciousness Qualified Codes: S06.0X0A - Concussion without loss of consciousness, initial encounter Additional Impression: Nausea & vomiting Qualified Codes: R11.2 - Nausea with vomiting, unspecified Disposition: HOME, SELF-CARE Condition: Improved Departure-Patient Inst. Decision time for Depature: 02:36 Referrals: MELIDA SUTTON DO (PCP) Primary Care Physician DEAN TATUM (Family) Primary Care Physician Patient Instructions: Concussion, Adult (DC) Add. Discharge Instructions: Drink plenty of clear liquids. You may take ibuprofen up to 600 mg every 6 hours as needed for pain. Add Tylenol (acetaminophen) up to 1000 mg every 6 hours as needed for additional pain relief. Avoid strenuous stimuli such as loud noises or strenuous work for the next couple of days while you rest your head. If any activity causes worsening symptoms of concussion such as headache, changes in vision, nausea, confusion, etc., please stop that activity and rest. Follow-up with your primary care provider within the next week. Return to care if symptoms are worsening rather than improving. All discharge instructions reviewed with patient and/or family. Voiced understanding. Scripts Ondansetron (Zofran Odt) 4 Mg Tab.rapdis 4 MG SL Q4H, #10 TAB Prov: CANDICE LOPEZ MD 01/06/18 CANDICE LOPEZ MD Jan 06, 2018 02:39
[2018-01-06 02:40] VITALS: BP 112/56
[2018-01-06] MEDS ORDERED: KETOROLAC 30 MG/ML VIAL IVP ONE (02:45)
--- NOTE | 2018-01-06 06:29 | Diagnostic Imaging Report ---
PROCEDURE: CT head and CT cervical spine without contrast. TECHNIQUE: Multiple contiguous axial images were obtained through the brain and cervical spine without the use of intravenous contrast. Sagittal and coronal reformations through the cervical spine were then performed. INDICATION: Head and neck pain. FINDINGS: The ventricles and sulci are within normal limits. There is no hydrocephalus or cerebral edema. There is no midline shift or mass effect. There is no intracranial mass, hemorrhage or extra-axial fluid collection. The visualized paranasal sinuses and mastoid air cells are clear. No fractures are identified. CERVICAL SPINE: Alignment is normal. There is no fracture or traumatic subluxation. The prevertebral soft tissues are within normal limits. The odontoid is intact and the lateral masses are well aligned. There are no soft tissue abnormalities. IMPRESSION: 1. No acute intracranial process. 2. No focal abnormality in the cervical spine. Dictated by: Dictated on workstation # [id number]
== END 2018-01-06 02:58 | disposition home or self-care (01) ==
LOC: EDUNIT# 22:43 → ER 22:44
DX: S06.0X0A Concussion without loss of consciousness, initial encounter (principal); R11.2 Nausea with vomiting, unspecified; G43.909 Migraine, unspecified, not intractable, without status migrainosus; Z80.3 Family history of malignant neoplasm of breast; Z88.2 Allergy status to sulfonamides; Z88.8 Allergy status to other drugs, medicaments and biological substances; W01.198A Fall on same level from slipping, tripping and stumbling with subsequent striking against other object, initial encounter
CPT/HCPCS: 70450; 72125; 96361; 96374; 96375

== ENCOUNTER → 2018-02-02 | Outpatient (CLI) | payer MEDICAID ==
[~2018-02-02] MED LIST changes: +NAPR-915 PO; -NAPR500T4 PO; +ONDA4TAB8 SL
--- NOTE | 2018-02-02 13:52 | Diagnostic Imaging Report ---
EXAMINATION: Bilateral breast ultrasound. INDICATION: Bilateral breast lumps. FINDINGS: By history, the patient has palpable abnormalities in the upper inner aspect of the right breast and in the 12 o'clock position of the left breast. The ultrasound examination of these areas shows no discrete solid or cystic mass. I suspect that the palpable abnormalities in question may be related to fibroglandular tissue alone; however, if clinical concern regarding an underlying abnormality persists, then biopsy should still be considered. It has come to my attention that the patient's mother was diagnosed with breast cancer at age 52. Consideration should be given for testing for breast cancer gene. IMPRESSION: There is no discrete solid or cystic mass identified. Clinical followup is recommended. ACR BI-RADS Category 1: Negative. Dictated by: Dictated on workstation # [id number]
== END ==
LOC: RAD 12:28
PROVIDERS: ATTEND Nurse Practitioner Family
DX: N63.10 Unspecified lump in the right breast, unspecified quadrant (principal); N63.20 Unspecified lump in the left breast, unspecified quadrant

== ENCOUNTER → 2018-08-04 | Outpatient (CLI) | payer MEDICAID ==
--- NOTE | 2018-08-04 15:31 | Diagnostic Imaging Report ---
INDICATION: dating. There is an intrauterine gestational sac containing a pole. [place]-rump length measurement is 3 mm consistent with 5 weeks 6 days gestation. heart rate was recorded at 78 beats per minute. No jose david-gestational sac hemorrhage is detected. Gestational sac shape is within normal limits. Yolk sac is visible. Adnexa are unremarkable. IMPRESSION: Single live IUP 5 weeks 6 days gestational age. The estimated date of confinement sonographically is 03/31/2019. Dictated by: Dictated on workstation # [id number]
== END ==
LOC: RAD 13:41
PROVIDERS: ATTEND Family Medicine
DX: Z36.89 Encounter for other specified antenatal screening (principal); Z3A.01 Less than 8 weeks gestation of pregnancy
CPT/HCPCS: 76801; 76817

== ENCOUNTER 2018-08-11 19:53 | Emergency (ER) | payer MEDICAID ==
[~2018-08-11] VITALS: Ht 160 cm; Wt 108.9 kg
--- NOTE | 2018-08-11 20:49 | ED GU-Female ---
General Stated Complaint: 7W OB, CRAMPING Source: patient Exam Limitations: no limitations History of Present Illness Date Seen by Provider: Aug 11, 2018 Time Seen by Provider: 20:48 Initial Comments Patient is a 27-year-old female who presents to the emergency room with complaints of pelvic cramping for 24 hours. She reports that she is [address] Riley is her BANK APPRAISER. She denies any vaginal discharge. Timing/Duration: intermittent Severity/Quality: cramping Location: suprapubic, vaginal Radiation: none Activities at Onset: none Associated Symptoms: denies symptoms Allergies and Home Medications Allergies Coded Allergies: sulfamethoxazole (Verified Allergy, Intermediate, NAUSEA, 10/01/16) NAUSEA/VOMITING trimethoprim (Verified Allergy, Intermediate, NAUSEA, 10/01/16) NAUSEA/VOMITING Home Medications Ondansetron 4 Mg Tab.rapdis, 4 MG SL Q4H Prescribed by: CANDICE DUGGAN on 01/06/18 0239 Patient Home Medication List Home Medication List Reviewed: Yes Review of Systems Review of Systems Constitutional: see HPI; No chills, No fever Genitourinary: see HPI, other (pelvic cramping) : Yes Expected Date of Delivery: Mar 12, 2019 LMP: May 25, 2018 All Other Systemes Reviewed Negative Unless Noted: Yes Past Ozhnyyx-Mphywj-Rklcon Hx Past Med/Social Hx: Reviewed Nursing Past Med/Soc Hx Patient Social History 2nd Hand Smoke Exposure: No Recent Foreign Travel: No Contact w/Someone Who Travel: No Recent Hopitalizations: No Immunizations Up To Date Tetanus Booster (TDap): Less than 5yrs PED Vaccines UTD: Yes Date of Influenza Vaccine: Aug 20, 2016 Seasonal Allergies Seasonal Allergies: No Past Medical History Surgeries: No Respiratory: No Currently Using CPAP: No Currently Using BIPAP: No Cardiac: No Neurological: Yes Headaches /Migraines Reproductive Disorders: No Female Reproductive Disorders: Denies Sexually Transmitted Disease: No HIV/AIDS: No Genitourinary: No Gastrointestinal: No Musculoskeletal: Yes Chronic Back Pain Endocrine: No HEENT: No Loss of Vision: Bilateral Cancer: No Psychosocial: No Integumentary: No Blood Disorders: No Adverse Reaction/Blood Tranf: No Family Medical History Reviewed Nursing Family Hx JOLIE 19 MOTHER Diabetes mellitus 19 MOTHER ENDOMETREAL 19 MOTHER FH: breast cancer in first degree relative Hypercholesterolemia 19 FATHER Hypertension 19 FATHER Malignant neoplasm of endometrium No Pertinent Family Hx Physical Exam Vital Signs Vital Signs - First Documented 08/11/18 20:42 Temp 98.2 Pulse 84 Resp 16 B/P (MAP) 118/79 (92) Pulse Ox 98 O2 Delivery Room Air Capillary Refill : Height, Weight, BMI Height: 5'4.00" Weight: 230lbs. 0.0oz. [id number]; 43.1 BMI Method:Stated General Appearance: WD/WN, no apparent distress Neck: non-tender, full range of motion, supple, normal inspection Cardiovascular: normal peripheral pulses, regular rate, rhythm, no edema, no gallop, no JVD, no murmur Respiratory: chest non-tender, lungs clear, normal breath sounds, no respiratory distress, no accessory muscle use, respiratory distress Gastrointestinal: normal bowel sounds, non tender, soft, no organomegaly, no pulsatile mass, abnormal bowel sounds Neurologic/Psychiatric: alert, normal mood/affect, oriented x 3 Skin: normal color, warm/dry Progress/Results/Core Measures Suspected Sepsis SIRS Temperature: Pulse: Respiratory Rate: Laboratory Tests 08/11/18 21:21: White Blood Count 13.2H Blood Pressure / Mean: Laboratory Tests 08/11/18 21:21: Creatinine 0.77, Platelet Count 310, Total Bilirubin 0.2 Results/Orders Lab Results Laboratory Tests Test 08/11/18 21:21 08/11/18 21:40 Range/Units White Blood Count 13.2 H 4.3-11.0 10^3/uL Red Blood Count 4.59 4.35-5.85 10^6/uL Hemoglobin 13.9 11.5-16.0 G/DL Hematocrit 40 35-52 % Mean Corpuscular Volume 88 80-99 FL Mean Corpuscular Hemoglobin 30 25-34 PG Mean Corpuscular Hemoglobin Concent 35 32-36 G/DL Red Cell Distribution Width 13.3 10.0-14.5 % Platelet Count 310 130-400 10^3/uL Mean Platelet Volume 10.1 7.4-10.4 FL Neutrophils (%) (Auto) 68 42-75 % Lymphocytes (%) (Auto) 25 12-44 % Monocytes (%) (Auto) 6 0-12 % Eosinophils (%) (Auto) 1 0-10 % Basophils (%) (Auto) 0 0-10 % Neutrophils # (Auto) 9.0 H 1.8-7.8 X 10^3 Lymphocytes # (Auto) 3.3 1.0-4.0 X 10^3 Monocytes # (Auto) 0.8 0.0-1.0 X 10^3 Eosinophils # (Auto) 0.1 0.0-0.3 10^3/uL Basophils # (Auto) 0.0 0.0-0.1 10^3/uL Sodium Level 138 135-145 MMOL/L Potassium Level 3.9 3.6-5.0 MMOL/L Chloride Level 108 H 98-107 MMOL/L Carbon Dioxide Level 19 L 21-32 MMOL/L Anion Gap 11 5-14 MMOL/L Blood Urea Nitrogen 8 7-18 MG/DL Creatinine 0.77 0.60-1.30 MG/DL Estimat Glomerular Filtration Rate > 60 BUN/Creatinine Ratio 10 Glucose Level 83 70-105 MG/DL Calcium Level 9.3 8.5-10.1 MG/DL Corrected Calcium 8.9 8.5-10.1 MG/DL Total Bilirubin 0.2 0.1-1.0 MG/DL Aspartate Amino Transf (AST/SGOT) 10 5-34 U/L Alanine Aminotransferase (ALT/SGPT) 11 0-55 U/L Alkaline Phosphatase 49 40-136 U/L Total Protein 7.5 6.4-8.2 GM/DL Albumin 4.5 3.2-4.5 GM/DL Human Chorionic Gonadotropin, Quant 30651 H <5 MIU/ML Urine Color YELLOW Urine Clarity CLEAR Urine pH 5 5-9 Urine Specific Rover 1.025 H 1.016-1.022 Urine Protein NEGATIVE NEGATIVE Urine Glucose (UA) NEGATIVE NEGATIVE Urine Ketones 1+ H NEGATIVE Urine Nitrite NEGATIVE NEGATIVE Urine Bilirubin NEGATIVE NEGATIVE Urine Urobilinogen NORMAL NORMAL MG/DL Urine Leukocyte Esterase NEGATIVE NEGATIVE Urine RBC (Auto) NEGATIVE NEGATIVE Urine RBC NONE /HPF Urine WBC RARE /HPF Urine Squamous Epithelial Cells 0-2 /HPF Urine Crystals NONE /LPF Urine Bacteria FEW H /HPF Urine Casts NONE /LPF Urine Mucus SMALL H /LPF Urine Culture Indicated NO My Orders Orders - KELSEY DORSEY Cbc With Automated Diff (08/11/18 20:44) Hcg,Quantitative (08/11/18 20:44) Saline Lock/Iv-Start (08/11/18 20:44) Comprehensive Metabolic Panel (08/11/18 20:44) Us Ob<14 Wks Sngle W/Transvag (08/11/18 20:44) Ua Culture If Indicated (08/11/18 21:28) Rhogam Administration (08/11/18 21:49) Rh Immune Globulin Rhophylac (08/11/18 21:49) Vital Signs/I&O 08/11/18 08/11/18 20:42 23:10 Temp 98.2 98.2 Pulse 84 73 Resp 16 16 B/P (MAP) 118/79 (92) 114/69 (92) Pulse Ox 98 97 O2 Delivery Room Air Room Air Capillary Refill : Progress Note : Time: 21:00 Progress Note I have seen and evaluated the patient. I have informed her of the ultrasound findings and that she will need the Rhogam administration. I have spoke to Dr Dejesus who is suction operator for [facility] in regards to the case and she asked me to administer the Rhogam and have the patient follow up with Dr. Riley tomorrow. Diagnostic Imaging Diagonstic Imaging: Ultrasound Plain Films/CT/US/NM/MRI: pelvis Comments NAME: YULI COLUNGA [facility] REC#: [id number] PHYSICIAN: KELSEY DORSEY CC: ANGELY DORSEY THOMAS D Page 1 of 1 RADIOLOGY REPORT VIA [facility] [place], [place] CC: ANGELY DORSEY THOMAS D Page 1 of 1 RADIOLOGY REPORT NAME: YULI COLUNGA [facility] REC#: [id number] PT STATUS: REG ER : 1990 PHYSICIAN: KELSEY DORSEY ADMIT DATE: 08/11/18/ER Signed Date of Exam: 08/11/18 US OB<14 WKS SNGLE W/TRANSVAG INDICATION: Pelvic cramping. FINDINGS: Intrauterine gestational sac is present. The embryonic pole measures 6.2 mm, compatible with age 6 weeks 4 days. Despite extended interrogation, there was no identifiable cardiac activity and this should be readily apparent at transvaginal imaging once the pole is 5 mm or greater. Findings are felt confirming intrauterine demise. No jose david-sac fluid collection. No extrauterine abnormality. IMPRESSION: Findings are most consistent with ambrose intrauterine demise. Dictated by: Dictated on workstation # [id number] Dict: 08/11/182108 Trans: 08/11/182117 Interpreted by: MEENA OLIVEIRA Electronically signed by: MEENA OLIVEIRA 08/11/182117 Reviewed: Reviewed by Me Departure Impression Primary Impression: Miscarriage Additional Impression: Encounter for prophylactic administration of RhoGAM Disposition: HOME, SELF-CARE Condition: Stable/Unchanged Departure-Patient Inst. Decision time for Depature: 21:10 Referrals: CATY RILEY MD (PCP) Primary Care Physician DEAN TATUM (Family) Primary Care Physician Patient Instructions: Miscarriage (DC) Add. Discharge Instructions: Follow-up with Dr. Riley within 1 week for further evaluation. All first thing tomorrow morning for an appointment time. Return back to the emergency room for any worsening symptoms or concerns as needed. You may take Tylenol and ibuprofen to help with pain and cramping. Some vaginal bleeding and/or discharge may be expected. Return back to the emergency room should your bleeding become worse than 1 pad per hour. KELSEY DORSEY Aug 11, 2018 20:49
--- NOTE | 2018-08-11 21:16 | Diagnostic Imaging Report ---
INDICATION: Pelvic cramping. FINDINGS: Intrauterine gestational sac is present. The embryonic pole measures 6.2 mm, compatible with age 6 weeks 4 days. Despite extended interrogation, there was no identifiable cardiac activity and this should be readily apparent at transvaginal imaging once the pole is 5 mm or greater. Findings are felt confirming intrauterine demise. No jose david-sac fluid collection. No extrauterine abnormality. IMPRESSION: Findings are most consistent with ambrose intrauterine demise. Dictated by: Dictated on workstation # [id number]
[2018-08-11 21:37] LABS: BASOPHILS % (AUTO) 0 % (0-10); EOSINOPHILS # (AUTO) 0.1 10^3/uL (0.0-0.3); EOSINOPHILS % (AUTO) 1 % (0-10); HEMATOCRIT 40 % (35-52); HEMOGLOBIN 13.9 G/DL (11.5-16.0); LYMPHOCYTES # (AUTO) 3.3 X 10^3 (1.0-4.0); LYMPHOCYTES % (AUTO) 25 % (12-44); MEAN CORPUSCULAR HEMOGLOBIN 30 PG (25-34); MEAN CORPUSCULAR HGB CONC 35 G/DL (32-36); MEAN CORPUSCULAR VOLUME 88 FL (80-99); MEAN PLATELET VOLUME 10.1 FL (7.4-10.4); MONOCYTES # (AUTO) 0.8 X 10^3 (0.0-1.0); MONOCYTES % (AUTO) 6 % (0-12); NEUTROPHILS % (AUTO) 68 % (42-75); PLATELET COUNT 310 10^3/uL (130-400); RED BLOOD COUNT 4.59 10^6/uL (4.35-5.85); RED CELL DISTRIBUTION WIDTH 13.3 % (10.0-14.5); WHITE BLOOD COUNT 13.2 10^3/uL (4.3-11.0)
[2018-08-11 21:47] LABS: BILIRUBIN,URINE NEGATIVE (NEGATIVE); CLARITY,URINE CLEAR; COLOR,URINE YELLOW; GLUCOSE, URINE (UA) NEGATIVE (NEGATIVE); KETONES,URINE 1+ (NEGATIVE); LEUKOCYTE ESTERASE ,URINE NEGATIVE (NEGATIVE); NITRITE,URINE NEGATIVE (NEGATIVE); PH,URINE 5 (5-9); PROTEIN,URINE NEGATIVE (NEGATIVE); UROBILINOGEN,URINE NORMAL (NORMAL)
[2018-08-11 21:54] LABS: ALANINE AMINOTRANSFERASE 11 U/L (0-55); ALBUMIN 4.5 GM/DL (3.2-4.5); ALKALINE PHOSPHATASE 49 U/L (40-136); BILIRUBIN,TOTAL 0.2 MG/DL (0.1-1.0); BUN/CREATININE RATIO 10; CALCIUM 9.3 MG/DL (8.5-10.1); CARBON DIOXIDE 19 MMOL/L (21-32); CHLORIDE 108 MMOL/L (98-107); CREATININE SERUM 0.77 MG/DL (0.60-1.30); GFR ESTIMATED > 60; GLUCOSE 83 MG/DL (70-105); POTASSIUM 3.9 MMOL/L (3.6-5.0); SODIUM 138 MMOL/L (135-145); TOTAL PROTEIN 7.5 GM/DL (6.4-8.2)
[2018-08-11 21:56] LABS: WBC,URINE RARE /HPF
[2018-08-11 21:57] LABS: BACTERIA,URINE FEW /HPF; SQUAMOUS EPITHELIAL CELL,UR 0-2 /HPF
[2018-08-11 23:10] VITALS: BP 114/69
== END 2018-08-11 23:10 | disposition home or self-care (01) ==
LOC: EDUNIT# 19:53 → ER 19:54
DX: O03.9 Complete or unspecified spontaneous abortion without complication (principal); O99.351 Diseases of the nervous system complicating pregnancy, first trimester; G43.909 Migraine, unspecified, not intractable, without status migrainosus; Z82.49 Family history of ischemic heart disease and other diseases of the circulatory system; Z80.3 Family history of malignant neoplasm of breast; Z3A.01 Less than 8 weeks gestation of pregnancy; Z88.2 Allergy status to sulfonamides; Z88.6 Allergy status to analgesic agent
CPT/HCPCS: 36415; 76801; 76817; 80053; 81000; 84702; 85025; 96372

== ENCOUNTER 2018-09-04 15:52 | Day surgery (SDC) | payer MEDICAID ==
[~2018-09-04] VITALS: Ht 162.6 cm; Wt 108.9 kg
[2018-09-04] MEDS ORDERED: HYDROcodone/APAP 7.5 MG/325 MG (LORTAB, LORCET PLUS) TABLET PO STA (18:19)
--- NOTE | 2018-09-04 18:27 | ED Lower Extremity ---
General Chief Complaint: Lower Extremity Stated Complaint: L ANKLE INJ Nursing Triage Note: PT TO ROOM #7 VIA ED WC BY ED STAFF. A&OX4. ICE BAG APPLIED IN ED WAITING ROOM. PT REPORTS APPROX 1415 ON THIS DAY SHE WAS CHASING HER SON OUTSIDE WHEN SHE SLIPPED AND FELL ON WET GRASS RESULTING IN INJURY TO LT ANKLE. MINIMAL SWELLING NOTED. DISTAL PULSES PRESENT. CAP REFILL <3 SEC. PT MOANING IN PAIN UPON LIGHT PALPATION. Nursing Sepsis Screen: No Definite Risk Source: patient Exam Limitations: no limitations (FREDA ZAVALETA MD) History of Present Illness Date Seen by Provider: Sep 04, 2018 Time Seen by Provider: 18:10 Initial Comments Here with report of left ankle and tib-fib pain after falling a few hours ago. Her son was running out to the street and she ran after in the kitchen and slipped on the grass, twisting her ankle and hitting her head. Denies loss of consciousness. She does have a scratch to the left ear. No loss of consciousness and denies neck pain. States the pain has been pretty bad intermittently since the episode and she feels like that caused her to pass out a few times. Denies any headache, vomiting, vision problems or other concerns except for the ankle pain. Tetanus is up-to-date. Onset: this afternoon Severity: moderate Pain/Injury Location: left leg, left ankle Method of Injury: fell Modifying Factors: Improves With Immobilization; Worse With Movement (FREDA ZAVALETA MD) Allergies and Home Medications Allergies Coded Allergies: sulfamethoxazole (Verified Allergy, Intermediate, NAUSEA, 10/01/16) NAUSEA/VOMITING trimethoprim (Verified Allergy, Intermediate, NAUSEA, 10/01/16) NAUSEA/VOMITING Home Medications Hydrocodone/Acetaminophen 1 Each Tablet, 1 EACH PO Q4H PRN for PAIN-MODERATE Prescribed by: HARDEEP WATSON on 09/04/18 193 Ondansetron 4 Mg Tab.rapdis, 4 MG SL Q4H Prescribed by: CANDICE DUGGAN on 01/06/18 0239 Patient Home Medication List Home Medication List Reviewed: Yes (FREDA ZAVALETA MD) Review of Systems Constitutional: see HPI; No chills, No fever Respiratory: no symptoms reported Cardiovascular: no symptoms reported Musculoskeletal: joint pain, joint swelling, muscle pain Skin: change in color (mild bruising of the left ankle), lesions (small scratch the left ear) Psychiatric/Neurological: No Symptoms Reported (FREDA ZAVALETA MD) Past Wobvntw-Yqtmet-Osyjav Hx Past Med/Social Hx: Reviewed Nursing Past Med/Soc Hx (FREDA ZAVALETA MD) Patient Social History Alcohol Use: Denies Use Recreational Drug Use: No Smoking Status: Never a Smoker 2nd Hand Smoke Exposure: No Recent Foreign Travel: No Contact w/Someone Who Travel: No Recent Infectious Disease Expo: No Recent Hopitalizations: No (FREDA ZAVALETA MD) Immunizations Up To Date Tetanus Booster (TDap): Less than 5yrs PED Vaccines UTD: Yes Date of Influenza Vaccine: Aug 20, 2016 (FREDA ZAVALETA MD) Seasonal Allergies Seasonal Allergies: No (FREDA ZAVALETA MD) Past Medical History Surgeries: No Respiratory: No Currently Using CPAP: No Currently Using BIPAP: No Cardiac: No Neurological: Yes Headaches /Migraines Reproductive Disorders: No Female Reproductive Disorders: Denies Sexually Transmitted Disease: No HIV/AIDS: No Genitourinary: No Gastrointestinal: No Musculoskeletal: Yes Chronic Back Pain Endocrine: No HEENT: No Loss of Vision: Bilateral Cancer: No Psychosocial: No Integumentary: No Blood Disorders: No Adverse Reaction/Blood Tranf: No (FREDA ZAVALETA MD) Family Medical History Reviewed Nursing Family Hx (FREDA ZAVALETA MD) JOLIE 19 MOTHER Diabetes mellitus 19 MOTHER ENDOMETREAL 19 MOTHER FH: breast cancer in first degree relative Hypercholesterolemia 19 FATHER Hypertension 19 FATHER Malignant neoplasm of endometrium No Pertinent Family Hx (FREDA ZAVALETA MD) Physical Exam Vital Signs Vital Signs - First Documented 09/04/18 17:53 Temp 99.7 Pulse 83 Resp 16 B/P (MAP) 127/84 (98) Pulse Ox 99 O2 Delivery Room Air (HARDEEP WATSON APRN) Vital Signs Capillary Refill : Less Than 3 Seconds (FREDA ZAVALETA MD) Height, Weight, BMI Height: 5'4.00" Weight: 240lbs. 0.0oz. 108.941736lq; 43.1 BMI Method:Stated General Appearance: WD/WN, no apparent distress HEENT: PERRL/EOMI, TMs normal, pharynx normal Neck: non-tender, full range of motion, supple, normal inspection Cardiovascular: regular rate, rhythm, no murmur Respiratory: lungs clear, normal breath sounds Legs: right leg non-tender, right leg normal inspection, right leg normal range of motion, right leg no evidence of injury; left leg pain (mild mid tibia) , left leg soft tissue tenderness, left leg swelling (distal) Ankles: right ankle non-tender, right ankle normal inspection, right ankle normal range of motion, right ankle no evidence of injury; left ankle pain ( lateral), left ankle soft tissue tenderness, left ankle swelling (lateral) Skin: warm/dry, ecchymosis (lateral left ankle), other (small superficial abrasion to the left ear) (FREDA ZAVALETA MD) Progress/Results/Core Measures Results/Orders Vital Signs/I&O 09/04/18 17:53 Temp 99.7 Pulse 83 Resp 16 B/P (MAP) 127/84 (98) Pulse Ox 99 O2 Delivery Room Air (HARDEEP WATSON APRN) Blood Pressure Mean: 98 Progress Progress Note : Progress Note Seen and evaluated. X-ray left ankle and tib-fib. Hydrocodone 7.5 one tab by mouth given. Tetanus is up-to-date. Monitor patient. 193: Tib-fib fracture noted and has trimalleolar ankle fracture. I did discuss the case with Dr. Patton. He would like to take her to the OR tonight. To go to the OR at 2100. IV and labs ordered. Patient has been nothing by mouth except meds this evening dose given in the ER and has not eaten since yesterday. Patient and family informed and agree. (FREDA ZAVALETA MD) Diagnostic Imaging Diagonstic Imaging: Xray Plain Films/CT/US/NM/MRI: ankle Comments NAME: YULI COLUNGA MED REC#: [id number] PT STATUS: REG ER : 1990 PHYSICIAN: FREDA ZAVALETA MD ADMIT DATE: 09/04/18/ER Signed Date of Exam: 09/04/18 ANKLE, LEFT, 3 VIEWS INDICATION: Trauma, left ankle pain. FINDINGS: Three views of the left ankle show transverse fracture of the medial malleolus with several millimeters of distraction. There is nondisplaced vertical fracture of the posterior malleolus. There is an oblique fracture of the shaft of the fibula with minimal displacement. The ankle joint is currently not widened. IMPRESSION: There are fractures of the distal tibia and fibula which are in satisfactory alignment. Dictated by: Dictated on workstation # [id number] Dict: 09/04/181854 Trans: 09/04/181857 Interpreted by: YASMIN MCELROY MD Electronically signed by: YASMIN MCELROY MD 09/04/181857 Diagonstic Imaging: Xray Plain Films/CT/US/NM/MRI: other Comments NAME: YULI COLUNGA [facility] REC#: [id number] PT STATUS: REG ER : 1990 PHYSICIAN: FREDA ZAVALETA MD ADMIT DATE: 09/04/18/ER Signed Date of Exam: 09/04/18 TIBIA/FIBULA, LEFT, 2 VIEWS INDICATION: Trauma, left lower leg pain AP and lateral views of the left tibia and fibula show an oblique fracture of the distal shaft of the fibula with less than 2 mm of displacement. There is a vertical fracture of the posterior tibia at the articular surface. There is a transverse fracture of the medial malleolus. The ankle joint is not widened. The proximal tibia and fibula are intact. IMPRESSION: There are fractures of the distal tibia and fibula with minimal displacement. Dictated by: Dictated on workstation # [id number] Dict: 09/04/181855 Trans: 09/04/181911 Interpreted by: YASMIN MCELROY MD Electronically signed by: YASMIN MCELROY MD 09/04/181911 (FREDA ZAVALETA MD) Departure Impression Primary Impression: Fracture of tibia and fibula Qualified Codes: S82.209A - Unspecified fracture of shaft of unspecified tibia , initial encounter for closed fracture; S82.409A - Unspecified fracture of shaft of unspecified fibula, initial encounter for closed fracture Disposition: ADMITTED INPATIENT Condition: Stable Admissions Decision to Admit Reason: Admit from ER (Trauma) Decision to Admit/Date: Sep 04, 2018 Time/Decision to Admit Time: 19:30 (FREDA ZAVALETA MD) Departure-Patient Inst. Decision time for Depature: 19:28 (HARDEEP WATSON APRN) Referrals: CATY RILEY MD (PCP/Family) Primary Care Physician CHIQUITA PATTON MD Patient Instructions: Ankle Fracture Scripts Hydrocodone/Acetaminophen ([place] 5-325 Tablet) 1 Each Tablet 1 EACH PO Q4H PRN for PAIN-MODERATE MDD 10, #60 TAB Prov: HARDEEP WATSON APRN 09/04/18 Work/School Note: Work Release Form Date Seen in the Emergency Department: Sep 04, 2018 Return to Work: Sep 12, 2018 FREDA ZAVALETA MD Sep 04, 2018 18:27 HARDEEP WATSON APRN Sep 04, 2018 19:30
--- NOTE | 2018-09-04 19:01 | Diagnostic Imaging Report ---
INDICATION: Trauma, left ankle pain. FINDINGS: Three views of the left ankle show transverse fracture of the medial malleolus with several millimeters of distraction. There is nondisplaced vertical fracture of the posterior malleolus. There is an oblique fracture of the shaft of the fibula with minimal displacement. The ankle joint is currently not widened. IMPRESSION: There are fractures of the distal tibia and fibula which are in satisfactory alignment. Dictated by: Dictated on workstation # [id number]
--- NOTE | 2018-09-04 19:01 | Diagnostic Imaging Report ---
INDICATION: Trauma, left lower leg pain AP and lateral views of the left tibia and fibula show an oblique fracture of the distal shaft of the fibula with less than 2 mm of displacement. There is a vertical fracture of the posterior tibia at the articular surface. There is a transverse fracture of the medial malleolus. The ankle joint is not widened. The proximal tibia and fibula are intact. IMPRESSION: There are fractures of the distal tibia and fibula with minimal displacement. Dictated by: Dictated on workstation # [id number]
[2018-09-04] MEDS ORDERED: HYDR-4226 PO (19:30)
[2018-09-04] MEDS ORDERED: fentaNYL INJECTION 100 MCG/2 ML AMP IVP STA (20:08)
[2018-09-04] MEDS ORDERED: NS IV 1000 ML 1,000 ML IV SCH (20:15)
[2018-09-04 20:19] LABS: BASOPHILS % (AUTO) 0 % (0-10); EOSINOPHILS % (AUTO) 0 % (0-10); HEMATOCRIT 43 % (35-52); HEMOGLOBIN 14.4 G/DL (11.5-16.0); LYMPHOCYTES # (AUTO) 1.9 X 10^3 (1.0-4.0); LYMPHOCYTES % (AUTO) 11 % (12-44); MEAN CORPUSCULAR HEMOGLOBIN 29 PG (25-34); MEAN CORPUSCULAR HGB CONC 34 G/DL (32-36); MEAN CORPUSCULAR VOLUME 87 FL (80-99); MONOCYTES # (AUTO) 0.6 X 10^3 (0.0-1.0); MONOCYTES % (AUTO) 4 % (0-12); NEUTROPHILS # (AUTO) 14.2 X 10^3 (1.8-7.8); NEUTROPHILS % (AUTO) 85 % (42-75); PLATELET COUNT 333 10^3/uL (130-400); RED BLOOD COUNT 4.92 10^6/uL (4.35-5.85); RED CELL DISTRIBUTION WIDTH 13.3 % (10.0-14.5); WHITE BLOOD COUNT 16.7 10^3/uL (4.3-11.0)
[2018-09-04] MEDS ORDERED: LIDOCAINE PF 2% 5 ML (XYLOCAINE) VIAL ONE (20:28)
[2018-09-04] MEDS ORDERED: proPOfol 200 MG/20 ML (DIPRIVAN) VIAL IV ONE (20:28)
[2018-09-04] MEDS ORDERED: ONDANSETRON 4 MG/2 ML (SDV) Z0FRAN ONE (20:28)
[2018-09-04] MEDS ORDERED: MIDAZOLAM 2 MG/2 ML (VERSED) VIAL ONE (20:28)
[2018-09-04] MEDS ORDERED: SUCCINYLCHOLINE INJ 100 MG/5 ML SYR ONE (20:28)
[2018-09-04] MEDS ORDERED: DEXAMETHASONE 10 MG/ML (DECADRON) 1 ML VIAL ONE (20:28)
[2018-09-04] MEDS ORDERED: fentaNYL INJECTION 100 MCG/2 ML AMP ONE ×3 (20:28→23:03)
[2018-09-04] MEDS ORDERED: SEVOFLURANE (ULTANE) 15 ML INHAL SOLN ONE ×3 (20:28→21:57)
[2018-09-04 20:39] LABS: LYMPHOCYTES % (MANUAL) 10 %; MONOCYTES % (MANUAL) 6 %; NEUTROPHILS % (MANUAL) 84 %; RBC MORPH NORMAL
[2018-09-04 20:40] LABS: ALANINE AMINOTRANSFERASE 17 U/L (0-55); ALKALINE PHOSPHATASE 62 U/L (40-136); BILIRUBIN,TOTAL 0.3 MG/DL (0.1-1.0); BUN/CREATININE RATIO 10; CALCIUM 9.7 MG/DL (8.5-10.1); CARBON DIOXIDE 20 MMOL/L (21-32); CHLORIDE 105 MMOL/L (98-107); CREATININE SERUM 0.89 MG/DL (0.60-1.30); GFR ESTIMATED > 60; GLUCOSE 117 MG/DL (70-105); POTASSIUM 3.9 MMOL/L (3.6-5.0); SODIUM 138 MMOL/L (135-145)
[2018-09-04] MEDS ORDERED: GENTAMICIN 40 MG/ML 2 ML INJ SDV ONE (20:42)
[2018-09-04] MEDS ORDERED: BUPIVACAINE 0.25% 30 ML (SENSORCAINE) VIAL ONE (20:42)
--- NOTE | 2018-09-04 20:52 | Consultation ---
History of Present Illness History of Present Illness Patient Consulted On(divine/time) 09/04/18 20:45 Date Seen by Provider: Sep 04, 2018 Time Seen by Provider: 20:45 Reason for Visit: left ankle fracture History of Present Illness Patient is a 27 y/o white female who fell in her yard, while chasing her son. She admits to immediate left ankle pain. She was brought to [facility], where multiple radiologic images were performed. These revealed a left trimalleolar ankle fracture. Due to this we were consulted for Orthopaedic evaluation and treatment. Allergies and Home Medications Allergies Coded Allergies: sulfamethoxazole (Verified Allergy, Intermediate, NAUSEA, 10/01/16) NAUSEA/VOMITING trimethoprim (Verified Allergy, Intermediate, NAUSEA, 10/01/16) NAUSEA/VOMITING Home Medications Hydrocodone Bit/Acetaminophen 1 Tab Tab, 1-2 TAB PO Q4H PRN for PAIN-MODERATE Prescribed by: CHIQUITA PATTON on 09/05/18 1304 Patient Home Medication List Home Medication List Reviewed: Yes Past Fccatut-Tlhtnk-Nedmvr Hx Past Med/Social Hx: Reviewed Nursing Past Med/Soc Hx Patient Social History Alcohol Use: Denies Use Recreational Drug Use: No Smoking Status: Never a Smoker 2nd Hand Smoke Exposure: No Recent Foreign Travel: No Contact w/Someone Who Travel: No Recent Infectious Disease Expo: No Recent Hopitalizations: No Immunizations Up To Date Tetanus Booster (TDap): Less than 5yrs PED Vaccines UTD: Yes Date of Influenza Vaccine: Aug 20, 2016 Seasonal Allergies Seasonal Allergies: No Past Medical History Surgeries: No Respiratory: No Currently Using CPAP: No Currently Using BIPAP: No Cardiac: No Neurological: Yes Headaches /Migraines Reproductive Disorders: No Female Reproductive Disorders: Denies Sexually Transmitted Disease: No HIV/AIDS: No Genitourinary: No Gastrointestinal: No Musculoskeletal: Yes Chronic Back Pain Endocrine: No HEENT: No Loss of Vision: Bilateral Cancer: No Psychosocial: No Integumentary: No Blood Disorders: No Adverse Reaction/Blood Tranf: No Family Medical History Reviewed Nursing Family Hx JOLIE 19 MOTHER Diabetes mellitus 19 MOTHER ENDOMETREAL 19 MOTHER FH: breast cancer in first degree relative Hypercholesterolemia 19 FATHER Hypertension 19 FATHER Malignant neoplasm of endometrium No Pertinent Family Hx Review of Systems-General Constitutional: see HPI EENTM: no symptoms reported Respiratory: no symptoms reported Gastrointestinal: no symptoms reported Musculoskeletal: No back pain; joint pain, other Skin: No lesions, No rash Psychiatric/Neurological: No Symptoms Reported Physical Exam-General Problems Physical Exam Vital Signs Vital Signs - First Documented 09/04/18 17:53 Temp 99.7 Pulse 83 Resp 16 B/P (MAP) 127/84 (98) Pulse Ox 99 O2 Delivery Room Air Capillary Refill : Less Than 3 Seconds General Appearance: no apparent distress HEENT: PERRL/EOMI Respiratory: chest non-tender, lungs clear Cardiovascular: regular rate, rhythm Gastrointestinal: non tender, soft Extremities: other (Mild swelling of left ankle. Tenderness with palpation. Sensation intact. Moves all toes. ) Neurologic/Psychiatric: alert, normal mood/affect (d), oriented x 3 Skin: normal color, warm/dry Assessment/Plan Assessment/Plan Admission Diagnosis/Plan left ankle trimalleolar fracture Proceed with Left ankle ORIF at this time Admission Status: Observation MICHAELA HORTON Sep 04, 2018 20:52
[2018-09-04] MEDS ORDERED: ceFAZolin 1,000 MG/10 ML (ANCEF) VIAL IV ONE (21:00)
[2018-09-04] MEDS ORDERED: ceFAZolin 1,000 MG/10 ML (ANCEF) VIAL ONE (21:02)
[2018-09-04] MEDS ORDERED: LACTATED RINGERS 1,000 ML IV PRN (21:27)
--- NOTE | 2018-09-04 22:04 | Progress Note-Post Operative ---
Post-Operative Progess Note Surgeon (s)/[employer] Supervisor (s) Surgeon CHIQUITA PATTON MD [employer] Supervisor: DEBBIE Hernandez Pre-Operative Diagnosis Left Closed Triamalleolar Ankle Fx Post-Operative Diagnosis Same Procedure & Operative Findings Date of Procedure 09/04/18 Procedure Performed/Findings ORIF Left Trimalleolar without posterior fixation Anesthesia Type LMA Estimated Blood Loss Estimated blood loss (mL): Min Specimens/Packing Specimens Removed None CHIQUITA PATTON MD Sep 04, 2018 22:04
[2018-09-04] MEDS ORDERED: morphine INJ 10 MG/ML 1ML (SYR OR VIAL) ONE (22:33)
[2018-09-04] MEDS ORDERED: morphine INJ 10 MG/ML 1ML (SYR OR VIAL) IVP PRN (22:45)
[2018-09-04] MEDS ORDERED: morphine INJ 10 MG/ML 1ML (SYR OR VIAL) IVP ONE (22:45)
[2018-09-04] MEDS ORDERED: MEPERIDINE (DEMEROL) INJ 50 MG/ML IVP ONE (22:45)
[2018-09-04] MEDS ORDERED: fentaNYL INJECTION 100 MCG/2 ML AMP IVP ONE (22:45)
[2018-09-04] MEDS ORDERED: ONDANSETRON 4 MG/2 ML (SDV) Z0FRAN IV PRN (22:45)
[2018-09-04] MEDS ORDERED: ONDANSETRON 4 MG/2 ML (SDV) Z0FRAN IVP PRN (22:45)
[2018-09-04] MEDS ORDERED: ceFAZolin INJECTION 2,000 MG in NS (IVPB) 50 ML IV SCH (22:45)
[2018-09-04 23:40] VITALS: BP 134/74
[2018-09-05] MEDS: HYDROcodone/APAP 5 MG/325 MG (LORTAB) TAB PO PRN ×4 (00:15→12:26)
[2018-09-05] MEDS: NS IV 1000 ML 1,000 ML IV SCH ×2 (00:16→13:45)
--- NOTE | 2018-09-05 00:32 | OPERATIVE REPORT ---
DATE OF SERVICE: 09/04/2018 PREOPERATIVE DIAGNOSIS: Left closed trimalleolar ankle fracture. POSTOPERATIVE DIAGNOSIS: Left closed trimalleolar ankle fracture. PROCEDURE PERFORMED: Open reduction and internal fixation of left trimalleolar ankle fracture with fixation of the medial and lateral malleolus without fixation of the posterior malleolus. DATE AND TIME OF SURGERY: Please see anesthesia record. SURGEON: Chiquita Harris MD RECREATION SUPERINTENDENT: NIKOLAI Hernandez ROLE OF VENDING ROUTE SERVICER: Aid in retraction of the procedure, aid in implantation, instrumentation and wound closure. ANESTHESIA: General endotracheal. ESTIMATED BLOOD LOSS: Minimal. INTRAVENOUS FLUIDS: Please see anesthesia record. ANTIBIOTICS: Ancef. COMPLICATIONS: None. TOURNIQUET TIME: Please see OR record. SPECIMENS: None. IMPLANTS USED: De[employer] small fragment set. INDICATIONS FOR PROCEDURE: The patient is a 27-year-old female fell in her yard injuring her ankle sustained above injury. After risks, benefits, alternatives were discussed and she elected to proceed with operative intervention. DESCRIPTION OF PROCEDURE: The patient was taken to the preoperative holding area and brought back to the operative suite. After adequate induction of general anesthetic, preoperative antibiotics, she was placed supine on the OR table. Sterilely prepped and draped the left lower extremity. Leg was elevated, tourniquet was raised. Incision was made direct laterally down to the fracture site, which was held reduced and a 10-hole plate was utilized, as there was no 8-hole plate in the set and the 10-hole 1/3 tubular plate was then affixed to the distal fibula. The syndesmosis was noted to be disrupted and 2 syndesmosis screws were placed across the syndesmosis closing it down securely and making it stable. Remaining fixation was placed with great reduction achieved. Small oblique incision made over the medial malleolus and utilizing the C wire, which was placed and a 4.0 cannulated screw x2 was placed across the medial malleolus holding it in a reduced position while the ankle was stable. At the completion of fixation, wounds were irrigated, closed in layers, dressings were applied and the patient was placed into a well molded short leg cast, which was then split. Job ID: [id number] DocumentID: [id number] Dictated Date: 09/04/2018 22:03:17 Air Box Tester Date: 09/05/2018 00:31:20 Dictated By: CHIQUITA HARRIS MD [facility]
[2018-09-05 04:00] VITALS: BP 115/58
[2018-09-05] MEDS ORDERED: FLU QUADRIvalent (5+ YOA) 2018-2019 (AFLURIA) 0.5 ML IM ONE (07:15)
[2018-09-05 08:00] VITALS: BP 115/61
--- NOTE | 2018-09-05 08:45 | Diagnostic Imaging Report ---
INDICATION: Left ankle fracture COMPARISON: Imaging of the ankle from the same date FINDINGS: 3 intraoperative images of the left ankle are submitted dated 09/04/2018. Imaging demonstrates lateral plate and screw fixation of previously noted distal fibular shaft fracture. Alignment appears essentially anatomic. Two screws are also identified transfixing previously noted medial malleolar fracture. Two syndesmotic screws are also in place. Medial malleolar fracture appears better aligned in essentially anatomic alignment. IMPRESSION: Intraoperative imaging demonstrating internal fixation of previously noted medial malleolar fracture and distal fibular shaft fracture appearing in essentially anatomic alignment. See surgical note for full details. Fluoroscopy time: 40.1 seconds. Dictated by: Dictated on workstation # [id number]
--- NOTE | 2018-09-05 10:26 | Physical Therapy Ortho Eval ---
PT Orthopedic Evaluation Type of Surgery ORIF left ankle Prior Level of Function Current Living Status: Spouse Locomotion (Upon Admit): Independent Established Durable Medical Eq: None Pt reports she thinks someone has a walker she can borrow. She reports she may also try to get crutches. Subjective Subjective Pt agreeable to PT. Hopes to go home today. Verbalized understanding that she needs crutches or a walker and is going to decide which she wants. She will notifiy the nurse and go from there. Entry Into Home: Stairs Without Railing (3) Steps Into Home: 3 Steps Inside Home: 0 Other Obstacles: She reports her steps are concrete and the railing is not stable. Motor Control Motor Control: Motor Control WNL ROM ROM: WFL Strength Strength: WFL Transfer Transfers (B, C, W/C) (FIM): 7 pt is indep with functional transfers from bed mobility, to sit to stand to toilet transfer. Gait Gait Assistive Device: Crutches Pt trained in use of and demonstrated safe use of ambulation with FWW as well as with crutches. She hopped up/down 4 steps with crutches with SBA and skilled cues to sequence. Demonstrated how to use a walker on the steps as well. She verbalized understanding. Pt able to maintain NWB status. Demonstrated correct and safe use of both AD. Right Lower Extremity: Right Weight Bearing Status RLE: Weight Bearing/Tolerated Left Lower Extremity: Left Weight Bearing Status LLE: Non Weight Bearing Gait (FIM): 6 Summary/Comments Pt able to hop in home distances on crutches, in and out of the bathroom, in her room and in the ansari of the facility safely with maintenance of NWB status. Treatment Rendered Treatment: Gait Train, Step Train Safe with gait and stairs. Assessment/Goals Goal Time Frame: 1 Visit Safe Ambulation: Yes Plan Treatment Plan: Discharge Time Time In: 950 Time Out: 1020 Total Billed Treatment Time: 30 Billed Treatment Time visit EVM 15 GT 15 No ARACELI BAIG PT Sep 05, 2018 10:26
--- NOTE | 2018-09-05 10:56 | Anesthesia-General Post-Op ---
General Patient Condition Mental Status/LOC: Same as Preop Cardiovascular: Satisfactory Nausea/Vomiting: Absent Respiratory: Satisfactory Pain: Controlled Complications: Absent Post Op Complications Complications None Follow Up Care/Instructions Patient Instructions None needed. Anesthesia/Patient Condition Patient Condition Patient is doing well, no complaints, stable vital signs, no apparent adverse anesthesia problems. No complications reported per nursing. JEN GONZALEZ CRNA Sep 05, 2018 10:56
[2018-09-05 12:00] VITALS: BP 121/57
[2018-09-05] MEDS ORDERED: ceFAZolin 2 GM IV Premixed 50 ML IV SCH (12:30)
--- NOTE | 2018-09-05 13:02 | Progress Note (SOAP) ---
Subjective Date Seen by a Provider: Sep 05, 2018 Time Seen by a Provider: 13:00 Subjective/Events-last exam No complaints, pain controlled, safe on walker, ready to D/C Objective Exam Vital Signs Date Time Temp Pulse Resp B/P (MAP) Pulse Ox O2 Delivery O2 Flow Rate FiO2 09/05/18 08:00 97.2 87 20 115/61 (79) 94 Room Air 09/05/18 04:00 97.2 87 20 115/58 (77) 96 Room Air 09/04/18 23:40 98.1 78 18 134/74 (94) 96 Room Air 09/04/18 20:56 99.7 87 16 127/72 (90) 99 Room Air 09/04/18 17:53 99.7 83 16 127/84 (98) 99 Room Air I & O 09/05/18 07:00 Intake Total 1000 ml Balance 1000 ml Capillary Refill : Less Than 3 SecondsLess Than 3 Seconds General Appearance: No Apparent Distress Cardiovascular: Normal Peripheral Pulses Extremity: Normal Capillary Refill, Other (Cast in place, left leg, looks good) Neurologic/Psychiatric: Alert, Oriented x3, No Motor/Sensory Deficits Results Lab Laboratory Tests 09/04/18 20:14: White Blood Count 16.7H, Red Blood Count 4.92, Hemoglobin 14.4, Hematocrit 43, Mean Corpuscular Volume 87, Mean Corpuscular Hemoglobin 29, Mean Corpuscular Hemoglobin Concent 34, Red Cell Distribution Width 13.3, Platelet Count 333, Mean Platelet Volume 10.0, Neutrophils (%) (Auto) 85H, Lymphocytes (%) (Auto) 11L, Monocytes (%) (Auto) 4, Eosinophils (%) (Auto) 0, Basophils (%) (Auto) 0, Neutrophils # (Auto) 14.2H, Lymphocytes # (Auto) 1.9, Monocytes # (Auto) 0.6, Eosinophils # (Auto) 0.0, Basophils # (Auto) 0.0, Neutrophils % (Manual) 84, Lymphocytes % (Manual) 10, Monocytes % (Manual) 6, Blood Morphology Comment NORMAL, Sodium Level 138, Potassium Level 3.9, Chloride Level 105, Carbon Dioxide Level 20L, Anion Gap 13, Blood Urea Nitrogen 9, Creatinine 0.89, Estimat Glomerular Filtration Rate > 60, BUN/Creatinine Ratio 10, Glucose Level 117H, Calcium Level 9.7, Corrected Calcium , Total Bilirubin 0.3, Aspartate Amino Transf (AST/SGOT) 15, Alanine Aminotransferase (ALT/SGPT) 17, Alkaline Phosphatase 62, Total Protein 9.0H, Albumin 5.0H, Serum Test, Qualitative NEGATIVE Assessment/Plan Assessment/Plan Assess & Plan/Chief Complaint Left Trimalleolar Ankle fx, closed S/P ORIF D/C Home, instructions given Clinical Quality Measures DVT/VTE Risk/Contraindication: Risk Factor Score Per Nursin RFS Level Per Nursing on Admit: 4+=Very High CHIQUITA PATTON MD Sep 05, 2018 1:01 pm
[2018-09-05] MEDS ORDERED: ACHD5005 PO (13:04)
[2018-09-05 14:45] VITALS: BP 121/57
== END 2018-09-05 14:45 | disposition home or self-care (01) ==
LOC: EDUNIT# 15:52 → ER 15:53 → SDC 19:51 → 4TH 09-05 00:02 → SDC 09-05 14:45
PROVIDERS: ATTEND Orthopaedic Surgery Orthopaedic Surgery of the Spine
DX: S82.852A Displaced trimalleolar fracture of left lower leg, initial encounter for closed fracture (principal); W01.0XXA Fall on same level from slipping, tripping and stumbling without subsequent striking against object, initial encounter; Y92.017 Garden or yard in single-family (private) house as the place of occurrence of the external cause; Y93.02 Activity, running
CPT/HCPCS: 36415; 73590; 73610; 80053; 84703; 85007; 85027; 96374

== ENCOUNTER 2018-10-10 22:18 | Emergency (ER) | payer MEDICAID ==
[~2018-10-10] VITALS: Ht 162.6 cm; Wt 108.9 kg
[~2018-10-10 22:18] MED LIST changes: +ACHD5005 PO; +HYDR-4226 PO
[2018-10-10] MEDS ORDERED: RX-TRAMADOL 50 MG (ULTRAM) TAB PPK#4 PO STA (23:24)
--- NOTE | 2018-10-10 23:25 | ED Lower Extremity ---
General Chief Complaint: Lower Extremity Stated Complaint: RE-INJURED BROKEN LEG Nursing Triage Note: PT HAD TIB/FIB SX ON SEP 05. PT STATES SHE HAD HER BOOT OFF AND SON JUMPED ON HER AND HIT HER LEG. PT STATES SHE HEARD A "POP" AND LEG BEGAN SWELLING. PT STATES SWELLING IS MUCH BETTER NOW. Nursing Sepsis Screen: No Definite Risk Source: patient History of Present Illness Date Seen by Provider: Oct 10, 2018 Time Seen by Provider: 22:37 Initial Comments PT ARRIVES VIA POV FROM HOME PT STATES "I THINK I RE-BROKE MY LEG" STATES SHE BROKE HER LEFT LEG/ANKLE ON 09/04/18--TRIMALLEOLAR FX , AND HAD SURGERY WITH PLATE AND [address] PATTON PT IS STILL WEARING A BOOT STATES SHE TOOK THE BOOT OFF TONIGHT AND HER 2 Y.O. SON JUMPED ON HER LEFT ANKLE , WHO WEIGHS 34 LBS, AT 1900 TONIGHT STATES IT POPPED AND IT SWELLED UP STATES SWELLING HAS GONE DOWN ALOT, AFTER SHE ICED IT. HAS NOT TAKEN ANYTHING FOR PAIN --STATES SHE HAS RAN OUT OF HER PAIN MEDICATION NO NEW PARESTHESIAS OR MOTOR DEFICITS. STATES TOES 3,4,5 A LITTLE TINGLY, BUT HAVE BEEN THAT WAY SINCE SHE ORIGINALLY BROKE IT. C/O PAIN TO ANTERIOR ASPECT OF LEFT ANKLE NEXT APPOINTMENT WITH DR. PATTON IS 10/28/18 Allergies and Home Medications Allergies Coded Allergies: sulfamethoxazole (Verified Allergy, Intermediate, NAUSEA, 10/01/16) NAUSEA/VOMITING trimethoprim (Verified Allergy, Intermediate, NAUSEA, 10/01/16) NAUSEA/VOMITING Home Medications Hydrocodone Bit/Acetaminophen 1 Tab Tab, 1-2 TAB PO Q4H PRN for PAIN-MODERATE Prescribed by: CHIQUITA PATTON on 09/05/18 1304 Patient Home Medication List Home Medication List Reviewed: Yes Review of Systems Constitutional: no symptoms reported Musculoskeletal: see HPI Skin: no symptoms reported Psychiatric/Neurological: See HPI Past Mgxefcb-Wjcyqb-Xcgbhw Hx Patient Social History Alcohol Use: Denies Use Recreational Drug Use: No 2nd Hand Smoke Exposure: No Recent Foreign Travel: No Contact w/Someone Who Travel: No Recent Infectious Disease Expo: No Recent Hopitalizations: No Physical Abuse: No Sexual Abuse: No Immunizations Up To Date Tetanus Booster (TDap): Less than 5yrs PED Vaccines UTD: Yes Date of Influenza Vaccine: Aug 20, 2016 Seasonal Allergies Seasonal Allergies: No Past Medical History Surgeries: Yes (LEFT TRIMALLEOLAR FX WITH ORIF 09/04/2018) Orthopedic Respiratory: No Currently Using CPAP: No Currently Using BIPAP: No Cardiac: No Neurological: Yes Headaches /Migraines Reproductive Disorders: No Female Reproductive Disorders: Denies Sexually Transmitted Disease: No HIV/AIDS: No Genitourinary: No Gastrointestinal: No Musculoskeletal: Yes (LEFT ANKLE FX) Chronic Back Pain, Fractures Endocrine: No HEENT: No Loss of Vision: Bilateral Cancer: No Psychosocial: No Integumentary: No Blood Disorders: No Adverse Reaction/Blood Tranf: No Family Medical History JOLIE 19 MOTHER Diabetes mellitus 19 MOTHER ENDOMETREAL 19 MOTHER FH: breast cancer in first degree relative Hypercholesterolemia 19 FATHER Hypertension 19 FATHER Malignant neoplasm of endometrium No Pertinent Family Hx Physical Exam Vital Signs Vital Signs - First Documented 10/10/18 22:32 Temp 97.8 Pulse 87 Resp 14 B/P (MAP) 148/89 (108) Pulse Ox 98 Capillary Refill : Less Than 3 Seconds Height, Weight, BMI Height: 5'4.00" Weight: 240lbs. 0.0oz. 108.206244bv; 43.1 BMI Method:Stated General Appearance: WD/WN, no apparent distress Legs: left leg normal inspection Ankles: left ankle other (SURGICAL WOUINDS WELL HEALED. NO SIGNS OF INFECTION. SLIGHT SWELLING TO BILATERAL MALLEOLI, WITH TENDERNESS TO BILATERAL MALLEOLI AND ANTERIOR ASPECT OF ANKLE. DISTAL MOTOR/SENSORY/VASCULAR INTACT. 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 ) Progress/Results/Core Measures Results/Orders My Orders Orders - MICHELL BELL DO Ankle, Left, 3 Views (10/10/18 22:43) Rx-Tramadol Hcl (Rx-Ultram) (10/10/18 23:24) Rx-Tramadol Hcl (Rx-Ultram) (10/10/18 23:33) Vital Signs/I&O 10/10/18 10/10/18 22:32 23:38 Temp 97.8 97.8 Pulse 87 87 Resp 14 14 B/P (MAP) 148/89 (108) 148/89 (108) Pulse Ox 98 98 Blood Pressure Mean: 108 Diagnostic Imaging Comments XRAYS LEFT ANKLE--HARDWARE IN PLACE, NO NEW FRACTURE NOTED. PENDING RADIOLOGIST REVIEW Reviewed: Reviewed by Me Departure Impression Primary Impression: Contusion of left ankle Additional Impression: S/P RECENT LEFT ANKLE FRACTURE AND ORIF Disposition: HOME, SELF-CARE Condition: Stable Departure-Patient Inst. Referrals: CATY RILEY MD (PCP/Family) Primary Care Physician CHIQUITA PATTON MD Patient Instructions: Contusion (DC) Add. Discharge Instructions: ICE TO AREA AT 20 MINUTE INTERVALS ELEVATE FOOT MUCH POSSIBLE WEAR BOOT AT ALL TIMES TYLENOL NEEDED FOR PAIN FOLLOW UP WITH DR. PATTON THIS WEEK FOR FURTHER CARE All discharge instructions reviewed with patient and/or family. Voiced understanding. MICHELL BELL DO Oct 10, 2018 23:25
[2018-10-10] MEDS ORDERED: RX-TRAMADOL 50 MG (ULTRAM) TAB PPK#4 PO ONE (23:33)
[2018-10-10 23:38] VITALS: BP 148/89
--- NOTE | 2018-10-11 08:06 | Diagnostic Imaging Report ---
EXAMINATION: Left ankle radiographs, 3 views. COMPARISON: September 04, 2018. HISTORY: 28-year-old female, left ankle pain. FINDINGS: There are medial malleolar lag screws. There is sideplate and screw fixation hardware at the level of the distal fibula with syndesmotic screws. The hardware appears intact. There is an obliquely oriented mildly displaced distal fibular diaphyseal fracture above the level of the tibial plafond with no prominent periosteal reaction or bony callus bridging. There is a fracture deformity of the posterior malleolus which appears fairly similar to September 04, 2018. There is an os trigonum. There is no new fracture. Alignment of the ankle mortise is unremarkable. IMPRESSION: 1. Intact fixation hardware at the level of the distal tibia and fibula without hardware complication. 2. Redemonstrated fracture deformity of the posterior malleolus which appears similar to September 04, 2018. 3. No pronounced healing changes at site of distal fibular diaphyseal fracture or medial malleolar fracture. Dictated by: Dictated on workstation # [id number]
== END 2018-10-10 23:38 | disposition home or self-care (01) ==
LOC: EDUNIT# 22:18 → ER 22:20
DX: S90.02XA Contusion of left ankle, initial encounter (principal); S82.892D Other fracture of left lower leg, subsequent encounter for closed fracture with routine healing; G43.909 Migraine, unspecified, not intractable, without status migrainosus; Z82.49 Family history of ischemic heart disease and other diseases of the circulatory system; Z80.49 Family history of malignant neoplasm of other genital organs; Z80.3 Family history of malignant neoplasm of breast; Z88.2 Allergy status to sulfonamides; Z88.8 Allergy status to other drugs, medicaments and biological substances; Z98.890 Other specified postprocedural states; X58.XXXD Exposure to other specified factors, subsequent encounter; W51.XXXA Accidental striking against or bumped into by another person, initial encounter
CPT/HCPCS: 73610

== ENCOUNTER 2018-12-08 21:27 | Emergency (ER) | payer MEDICAID ==
[~2018-12-08] VITALS: Ht 162.6 cm; Wt 108.9 kg
--- NOTE | 2018-12-08 21:47 | ED General ---
General Chief Complaint: Trauma-Non Activation Stated Complaint: BURNED R HAND Source of Information: Patient Exam Limitations: No Limitations History of Present Illness Date Seen by Provider: Dec 08, 2018 Time Seen by Provider: 21:30 Initial Comments This 28-year-old woman presents to the emergency room with a burn on the dorsum of her right hand. She was frying chicken and splashed hot oil on her hand. She is concerned because she developed blisters with this burn. She applied mustard to the burn at home. She has not taken any other medications. She denies any injury to her fingers or any other part of her body. Allergies and Home Medications Allergies Coded Allergies: sulfamethoxazole (Verified Allergy, Intermediate, NAUSEA, 10/01/16) NAUSEA/VOMITING trimethoprim (Verified Allergy, Intermediate, NAUSEA, 10/01/16) NAUSEA/VOMITING Home Medications Hydrocodone Bit/Acetaminophen 1 Tab Tab, 1-2 TAB PO Q4H PRN for PAIN-MODERATE Prescribed by: CHIQUITA PATTON on 09/05/18 1304 Patient Home Medication List Home Medication List Reviewed: Yes Review of Systems Review of Systems Constitutional: no symptoms reported EENTM: no symptoms reported Respiratory: no symptoms reported Cardiovascular: no symptoms reported Gastrointestinal: no symptoms reported Genitourinary: no symptoms reported Musculoskeletal: no symptoms reported Skin: see HPI Psychiatric/Neurological: No Symptoms Reported Hematologic/Lymphatic: No Symptoms Reported Past Pesxzst-Eautih-Nerukz Hx Past Med/Social Hx: Reviewed Nursing Past Med/Soc Hx Patient Social History 2nd Hand Smoke Exposure: No Recent Foreign Travel: No Contact w/Someone Who Travel: No Recent Hopitalizations: No Immunizations Up To Date Tetanus Booster (TDap): Less than 5yrs PED Vaccines UTD: Yes Date of Influenza Vaccine: Aug 20, 2016 Seasonal Allergies Seasonal Allergies: No Past Medical History Surgeries: Yes (LEFT TRIMALLEOLAR FX WITH ORIF 09/04/2018) Orthopedic Respiratory: No Currently Using CPAP: No Currently Using BIPAP: No Cardiac: No Neurological: Yes Headaches /Migraines Reproductive Disorders: No Female Reproductive Disorders: Denies Sexually Transmitted Disease: No HIV/AIDS: No Genitourinary: No Gastrointestinal: No Musculoskeletal: Yes (LEFT ANKLE FX) Chronic Back Pain, Fractures Endocrine: No HEENT: No Loss of Vision: Bilateral Cancer: No Psychosocial: No Integumentary: No Blood Disorders: No Adverse Reaction/Blood Tranf: No Family Medical History JOLIE 19 MOTHER Diabetes mellitus 19 MOTHER ENDOMETREAL 19 MOTHER FH: breast cancer in first degree relative Hypercholesterolemia 19 FATHER Hypertension 19 FATHER Malignant neoplasm of endometrium No Pertinent Family Hx Physical Exam Vital Signs Vital Signs - First Documented 12/08/18 21:50 Pulse Ox 100 O2 Delivery Room Air Capillary Refill : Height, Weight, BMI Height: 5'4.00" Weight: 240lbs. 0.0oz. 108.097989ft; 43.1 BMI Method:Stated General Appearance: No Apparent Distress, WD/WN HEENT: PERRL/EOMI, Normal ENT Inspection Neck: Normal Inspection Respiratory: Lungs Clear, Normal Breath Sounds, No Accessory Muscle Use Cardiovascular: Regular Rate, Rhythm, No Edema, No Murmur Extremity: Other (mild erythema and few blisters to the dorsum of the right hand. Burn surface area less than one percent.) Neurologic/Psychiatric: Alert, Oriented x3, No Motor/Sensory Deficits, Normal Mood/Affect Skin: Normal Color, Warm/Dry, Other (see above) Progress/Results/Core Measures Suspected Sepsis SIRS Temperature: Pulse: Respiratory Rate: Blood Pressure / Mean: Results/Orders My Orders Orders - CANDICE LOPEZ MD Bacitracin Ointment (Bacitracin Ointment (12/09/18 09:00) Vital Signs/I&O 12/08/18 12/08/18 12/08/18 21:31 21:31 21:50 Temp 97.0 97.0 97.0 Pulse 100 100 98 Resp 17 17 B/P (MAP) 134/68 (90) 134/68 (90) 134/68 (90) Pulse Ox 100 O2 Delivery Room Air Capillary Refill : Progress Note : Progress Note Patient is up-to-date on her tetanus immunization. She requested a dressing to protect her wound. Bacitracin ointment was applied and the remainder of the tube was sent home with the patient. Sterile gauze was used to further address the hand. She was advised to change the dressing daily or more often if needed. Discharge instructions were reviewed. Departure Impression Primary Impression: Second degree burn of right hand Qualified Codes: T23.261A - Burn of second degree of back of right hand, initial encounter Disposition: 01 HOME, SELF-CARE Condition: Improved Departure-Patient Inst. Decision time for Depature: 21:40 Referrals: [facility] (PCP/Family) Primary Care Physician Patient Instructions: Skin Mak (DC) Add. Discharge Instructions: Keep your wound clean and dry until it heals. For pain take ibuprofen up to 600 mg every 6 hours and/or Tylenol (acetaminophen ) up to 1000 mg every 6 hours. Icing in 20 minute intervals may also help. You may use bacitracin ointment to protect the skin and prevent the ruptured blisters from sticking to the dressing. Use some type of dressing when working in dirty environments or to protect the wound from contact. Return to care if you have any further problems or concerns. All discharge instructions reviewed with patient and/or family. Voiced understanding. CANDICE LOPEZ MD Dec 08, 2018 21:47
[2018-12-08 21:50] VITALS: BP 134/68
[2018-12-09] MEDS ORDERED: BACITRACIN OINTMENT 28 GM TUBE TOP SCH (09:00)
== END 2018-12-08 21:51 | disposition home or self-care (01) ==
LOC: EDUNIT# 21:27 → ER 21:27
DX: T23.261A Burn of second degree of back of right hand, initial encounter (principal); T31.0 Burns involving less than 10% of body surface; G43.909 Migraine, unspecified, not intractable, without status migrainosus; Z82.49 Family history of ischemic heart disease and other diseases of the circulatory system; Z98.890 Other specified postprocedural states; Z80.49 Family history of malignant neoplasm of other genital organs; Z88.2 Allergy status to sulfonamides; Z88.8 Allergy status to other drugs, medicaments and biological substances; X10.2XXA Contact with fats and cooking oils, initial encounter
CPT/HCPCS: 99284

== ENCOUNTER 2019-01-24 17:58 | Emergency (ER) | payer MEDICAID ==
[~2019-01-24] VITALS: Ht 162.6 cm; Wt 108.9 kg
[2019-01-24] MEDS ORDERED: BACI1OIN6 TP (18:32)
[2019-01-24] MEDS ORDERED: HYDR-4226 PO (18:32)
[2019-01-24] MEDS ORDERED: CEPH-507 PO (18:32)
--- NOTE | 2019-01-24 18:32 | ED Integumentary General ---
General Chief Complaint: Skin/Wound Problems Stated Complaint: BURN Source: patient Exam Limitations: no limitations History of Present Illness Date Seen by Provider: Jan 24, 2019 Time Seen by Provider: 18:30 Initial Comments She leaned forward while at work on Friday night and the right side of her abdomen touched one of the burners. She's had pain since then. Tetanus is up-to- date. Timing/Duration: other (48 hours ago) Severity: moderate Location: torso Associated Symptoms: blisters Allergies and Home Medications Allergies Coded Allergies: sulfamethoxazole (Verified Allergy, Intermediate, NAUSEA, 10/01/16) NAUSEA/VOMITING trimethoprim (Verified Allergy, Intermediate, NAUSEA, 10/01/16) NAUSEA/VOMITING Home Medications Bacitracin Zinc 1 Each Oint..ea., 1 EACH TP BID Applied to burn on stomach twice a day for 5 days Prescribed by: HARDEEP WATSON on 01/24/191831 Cephalexin 500 Mg Capsule, 500 MG PO TID Prescribed by: HARDEEP WATSON on 01/24/191831 Hydrocodone Bit/Acetaminophen 1 Tab Tab, 1-2 TAB PO Q4H PRN for PAIN-MODERATE Prescribed by: CHIQUITA PATTON on 09/05/18 1304 Hydrocodone/Acetaminophen 1 Each Tablet, 1 EACH PO Q6H PRN for PAIN-MODERATE Prescribed by: HARDEEP WATSON on 01/24/191831 Patient Home Medication List Home Medication List Reviewed: Yes Review of Systems Review of Systems Constitutional: see HPI; No chills, No fever EENTM: see HPI Respiratory: no symptoms reported Cardiovascular: no symptoms reported Gastrointestinal: nausea Genitourinary: no symptoms reported Musculoskeletal: no symptoms reported Skin: no symptoms reported Past Knfsfmc-Hvszbj-Oibbqb Hx Patient Social History 2nd Hand Smoke Exposure: No Recent Foreign Travel: No Contact w/Someone Who Travel: No Recent Hopitalizations: No Immunizations Up To Date Tetanus Booster (TDap): Less than 5yrs PED Vaccines UTD: Yes Date of Influenza Vaccine: Jul 27, 2018 Seasonal Allergies Seasonal Allergies: No Past Medical History Surgeries: Yes (LEFT TRIMALLEOLAR FX WITH ORIF 09/04/2018) Orthopedic Respiratory: No Currently Using CPAP: No Currently Using BIPAP: No Cardiac: No Neurological: Yes Headaches /Migraines Reproductive Disorders: No Female Reproductive Disorders: Denies Sexually Transmitted Disease: No HIV/AIDS: No Genitourinary: No Gastrointestinal: No Musculoskeletal: Yes (LEFT ANKLE FX) Chronic Back Pain, Fractures Endocrine: No HEENT: No Loss of Vision: Bilateral Cancer: No Psychosocial: No Integumentary: No Blood Disorders: No Adverse Reaction/Blood Tranf: No Family Medical History JOLIE 19 MOTHER Diabetes mellitus 19 MOTHER ENDOMETREAL 19 MOTHER FH: breast cancer in first degree relative Hypercholesterolemia 19 FATHER Hypertension 19 FATHER Malignant neoplasm of endometrium No Pertinent Family Hx Physical Exam Vital Signs Vital Signs - First Documented 01/24/19 18:28 Pulse 84 Resp 20 B/P (MAP) 147/79 (101) Pulse Ox 100 O2 Delivery Room Air Capillary Refill : General Appearance: WD/WN, no apparent distress HEENT: PERRL/EOMI, normal ENT inspection Respiratory: no respiratory distress, no accessory muscle use Neurologic/Psychiatric: alert, normal mood/affect, oriented x 3 Skin: normal color, warm/dry Skin Problem Character: other (there is an area about 2 x 4 cm of partial thickness burn to the right anterior lower abdomen. There is about 1 cm of erythema surrounding this. No induration, no lymphangitis.) Progress/Results/Core Measures Results/Orders Vital Signs/I&O 01/24/19 18:28 Pulse 84 Resp 20 B/P (MAP) 147/79 (101) Pulse Ox 100 O2 Delivery Room Air Departure Impression Primary Impression: Skin burn Disposition: 01 HOME, SELF-CARE Condition: Stable Departure-Patient Inst. Decision time for Depature: 18:30 Referrals: [facility] (PCP/Family) Primary Care Physician Patient Instructions: Skin Mak (DC) Add. Discharge Instructions: Apply topical bacitracin cream twice a day for the next 5 days. Oral antibiotics for the next 5 days. Pain medication as directed. All discharge instructions reviewed with patient and/or family. Voiced understanding. Scripts Bacitracin Zinc (Bacitracin Zinc) 1 Each Oint..ea. 1 EACH TP BID for 5 Days, #1 EA Applied to burn on stomach twice a day for 5 days Prov: HARDEEP WATSON APRN 01/24/19 Hydrocodone/Acetaminophen (Norris 5-325 Tablet) 1 Each Tablet 1 EACH PO Q6H PRN for PAIN-MODERATE MDD 10, #10 TAB Prov: HARDEEP WATSON APRN 01/24/19 Cephalexin (Keflex) 500 Mg Capsule 500 MG PO TID, #15 CAP Prov: HARDEEP WATSON APRN 01/24/19 Images Torso/Trunk 1 - HARDEEP WATSON APRN Jan 24, 2019 18:32
[2019-01-24 18:37] VITALS: BP 147/79
== END 2019-01-24 18:37 | disposition home or self-care (01) ==
LOC: EDUNIT# 17:58 → ER 17:59
DX: T21.12XA Burn of first degree of abdominal wall, initial encounter (principal); T31.0 Burns involving less than 10% of body surface; G43.909 Migraine, unspecified, not intractable, without status migrainosus; Z82.49 Family history of ischemic heart disease and other diseases of the circulatory system; Z80.3 Family history of malignant neoplasm of breast; Z88.2 Allergy status to sulfonamides; Z80.49 Family history of malignant neoplasm of other genital organs; Z88.8 Allergy status to other drugs, medicaments and biological substances; X19.XXXA Contact with other heat and hot substances, initial encounter; Y92.59 Other trade areas as the place of occurrence of the external cause; Y99.0 Civilian activity done for income or pay
CPT/HCPCS: 99282

== ENCOUNTER 2019-05-17 13:22 | Emergency (ER) | payer SELFPAY ==
[~2019-05-17] VITALS: Ht 162.6 cm; Wt 108.9 kg
[~2019-05-17 13:22] MED LIST changes: +BACI1OIN6 TP; +CEPH-507 PO
[2019-05-17 13:50] LABS: BILIRUBIN,URINE NEGATIVE (NEGATIVE); CLARITY,URINE CLEAR; COLOR,URINE YELLOW; GLUCOSE, URINE (UA) NEGATIVE (NEGATIVE); KETONES,URINE NEGATIVE (NEGATIVE); LEUKOCYTE ESTERASE ,URINE 2+ (NEGATIVE); NITRITE,URINE NEGATIVE (NEGATIVE); PH,URINE 5 (5-9); PROTEIN,URINE 1+ (NEGATIVE); UROBILINOGEN,URINE NORMAL (NORMAL)
[2019-05-17 13:59] LABS: BACTERIA,URINE TRACE /HPF
[2019-05-17 14:13] LABS: BASOPHILS % (AUTO) 0 % (0-10); EOSINOPHILS # (AUTO) 0.1 10^3/uL (0.0-0.3); EOSINOPHILS % (AUTO) 1 % (0-10); HEMATOCRIT 43 % (35-52); HEMOGLOBIN 14.2 G/DL (11.5-16.0); LYMPHOCYTES # (AUTO) 2.6 X 10^3 (1.0-4.0); LYMPHOCYTES % (AUTO) 26 % (12-44); MEAN CORPUSCULAR HEMOGLOBIN 29 PG (25-34); MEAN CORPUSCULAR HGB CONC 33 G/DL (32-36); MEAN CORPUSCULAR VOLUME 87 FL (80-99); MEAN PLATELET VOLUME 10.6 FL (7.4-10.4); MONOCYTES # (AUTO) 0.6 X 10^3 (0.0-1.0); MONOCYTES % (AUTO) 6 % (0-12); NEUTROPHILS # (AUTO) 6.6 X 10^3 (1.8-7.8); NEUTROPHILS % (AUTO) 68 % (42-75); PLATELET COUNT 275 10^3/uL (130-400); RED CELL DISTRIBUTION WIDTH 13.2 % (10.0-14.5); WHITE BLOOD COUNT 9.8 10^3/uL (4.3-11.0)
[2019-05-17] MEDS ORDERED: NS 100 ML (IVPB) BAG IV ONE (14:15)
[2019-05-17] MEDS ORDERED: IOHEXOL 350 MG/ML 100 ML (OMNIPAQUE 350) VIAL IV ONE (14:15)
[2019-05-17] MEDS ORDERED: HOLD METFORMIN - RECEIVED CONTRAST 20 ML VIAL IV SCH (14:15)
[2019-05-17 14:31] LABS: ALANINE AMINOTRANSFERASE 16 U/L (0-55); ALBUMIN 4.7 GM/DL (3.2-4.5); ALKALINE PHOSPHATASE 56 U/L (40-136); BILIRUBIN,TOTAL 0.2 MG/DL (0.1-1.0); BUN/CREATININE RATIO 10; CALCIUM 9.6 MG/DL (8.5-10.1); CARBON DIOXIDE 23 MMOL/L (21-32); CHLORIDE 107 MMOL/L (98-107); CREATININE SERUM 0.81 MG/DL (0.60-1.30); GFR ESTIMATED > 60; GLUCOSE 90 MG/DL (70-105); POTASSIUM 4.3 MMOL/L (3.6-5.0); SODIUM 140 MMOL/L (135-145); TOTAL PROTEIN 7.4 GM/DL (6.4-8.2)
--- NOTE | 2019-05-17 14:38 | Diagnostic Imaging Report ---
PROCEDURE: CT abdomen and pelvis with contrast, rule out appendicitis. TECHNIQUE: Multiple contiguous axial images were obtained through the abdomen and pelvis after the administration of intravenous contrast. INDICATION: Right lower quadrant pain with nausea. COMPARISON: 12/06/2015 FINDINGS: The appendix is visualized, air-containing and nondilated. There is no hydroureteronephrosis. The liver, gallbladder, bile ducts, spleen, adrenals and pancreas all unremarkable. The aorta is patent and nonaneurysmal. There is no bowel obstruction. Uterus and adnexa appeared nonacute. There is no diverticulitis. There is no ascites, abscess, hematoma or other fluid collection. No abdominal wall defect or fluid collection. The osseous structures and the lung bases are nonacute. IMPRESSION: Normal appendix, unobstructed urinary tracts. No inflammatory process, obstructive features or acute abnormalities identified. Dictated by: Dictated on workstation # [id number]
--- NOTE | 2019-05-17 14:54 | ED GI ---
General Chief Complaint: Abdominal/GI Problems Stated Complaint: LOWER R ABD PAIN Nursing Triage Note: PT STATES RIGHT LOWER QUAD PAIN FOR 2 DAYS. PT STATES HER LMP WAS 04/25/19. PT STATES SHE HAS NOT BEEN SEXUALLY ACTIVE. PT HISTORY OF OVARIAN CYST. PT DENIES VAGINAL DISCHARGE. PT DENIES BURNING OR PAIN WITH URINATION. PT DENIES V/D/FEVER. PT STATES NAUSEA TODAY. PT STATES SHE FEELS LIKE SHE MAY BE CONSTIPATED, LAST BM YESTERDAY BUT IT WAS A SMALL HARD STOOL. Sepsis Screen: No Definite Risk History of Present Illness Date Seen by Provider: May 17, 2019 Time Seen by Provider: 13:40 Initial Comments 28-year-old female presents for acute right lower quadrant pain. She states it's been present for approximately 2 days. She's had no previous abdominal surgeries. She reports mild nausea, no vomiting. She did have one small hard stool yesterday and no bowel movement today. Her appetite has been poor for the last 2 days. She tried ibuprofen but with no improvement in her symptoms. Timing/Duration: 1-2 Days Severity/Quality: Moderate Location: RLQ Radiation: No Radiation Associated Symptoms: No Back Pain, No Fever/Chills, No Headache, No Heartburn; Nausea/Vomiting Allergies and Home Medications Allergies Coded Allergies: sulfamethoxazole (Verified Allergy, Intermediate, NAUSEA, 10/01/16) NAUSEA/VOMITING trimethoprim (Verified Allergy, Intermediate, NAUSEA, 10/01/16) NAUSEA/VOMITING Home Medications Bacitracin Zinc 1 Each Oint..ea., 1 EACH TP BID Applied to burn on stomach twice a day for 5 days Prescribed by: HARDEEP WATSON on 01/24/191831 Cephalexin 500 Mg Capsule, 500 MG PO TID Prescribed by: HARDEEP WATSON on 01/24/191831 Hydrocodone Bit/Acetaminophen 1 Tab Tab, 1-2 TAB PO Q4H PRN for PAIN-MODERATE Prescribed by: CHIQUITA PATTON on 09/05/18 1304 Hydrocodone Bit/Acetaminophen 1 Tab Tab, 1 EACH PO Q8H PRN for PAIN-MODERATE Prescribed by: YULI WHEELER on 05/17/19 1722 Hydrocodone/Acetaminophen 1 Each Tablet, 1 EACH PO Q6H PRN for PAIN-MODERATE Prescribed by: HARDEEP WATSON on 01/24/191831 Patient Home Medication List Home Medication List Reviewed: Yes Review of Systems Review of Systems Constitutional: no symptoms reported, see HPI Gastrointestinal: See HPI, Abdominal Pain; Denies Diarrhea; Nausea, Poor Appetite; Denies Vomiting All Other Systems Reviewed Negative Unless Noted: Yes Past Xvclprv-Nbtivo-Oadsjv Hx Patient Social History Alcohol Use: Denies Use Recreational Drug Use: No Smoking Status: Current Someday Smoker 2nd Hand Smoke Exposure: No Recent Foreign Travel: No Contact w/Someone Who Travel: No Recent Infectious Disease Expo: No Recent Hopitalizations: No Physical Abuse: No Sexual Abuse: No Mistreated: No Fear: No Immunizations Up To Date Tetanus Booster (TDap): Less than 5yrs PED Vaccines UTD: Yes Date of Influenza Vaccine: Jul 27, 2018 Seasonal Allergies Seasonal Allergies: No Past Medical History Surgeries: Yes (LEFT TRIMALLEOLAR FX WITH ORIF 09/04/2018) Orthopedic Respiratory: No Currently Using CPAP: No Currently Using BIPAP: No Cardiac: No Neurological: Yes Headaches /Migraines Last Menstrual Period: Apr 25, 2019 Reproductive Disorders: No Female Reproductive Disorders: Denies Sexually Transmitted Disease: No HIV/AIDS: No Genitourinary: No Gastrointestinal: No Musculoskeletal: Yes (LEFT ANKLE FX) Chronic Back Pain, Fractures Endocrine: No HEENT: No Loss of Vision: Bilateral Cancer: No Psychosocial: No Integumentary: No Blood Disorders: No Adverse Reaction/Blood Tranf: No Family Medical History JOLIE 19 MOTHER Diabetes mellitus 19 MOTHER ENDOMETREAL 19 MOTHER FH: breast cancer in first degree relative Hypercholesterolemia 19 FATHER Hypertension 19 FATHER Malignant neoplasm of endometrium No Pertinent Family Hx Physical Exam Vital Signs Vital Signs - First Documented 05/17/19 05/17/19 13:36 17:33 Temp 98.3 Pulse 68 Resp 18 B/P (MAP) 155/93 (113) Pulse Ox 99 O2 Delivery Room Air Capillary Refill : Less Than 3 Seconds Height/Weight/BMI Height: 5'4.00" Weight: 240lbs. 0.0oz. 108.676539vx; 43.1 BMI Method:Stated General Appearance: WD/WN, mild distress (secondary to pain) Neck: non-tender, full range of motion, supple, normal inspection Respiratory: chest non-tender, lungs clear, normal breath sounds Cardiovascular: normal peripheral pulses, regular rate, rhythm Gastrointestinal: normal bowel sounds, soft, distended; No guarding; rebound, tenderness; No hernia, No mass Extremities: normal range of motion, non-tender, normal inspection, normal capillary refill Back: normal inspection, no CVA tenderness, no vertebral tenderness Neurologic/Psychiatric: no motor/sensory deficits, alert, normal mood/affect, oriented x 3 Progress/Results/Core Measures Results/Orders Lab Results Laboratory Tests Test 05/17/19 13:40 05/17/19 14:05 Range/Units Urine Color YELLOW Urine Clarity CLEAR Urine pH 5 5-9 Urine Specific [place] 1.020 1.016-1.022 Urine Protein 1+ H NEGATIVE Urine Glucose (UA) NEGATIVE NEGATIVE Urine Ketones NEGATIVE NEGATIVE Urine Nitrite NEGATIVE NEGATIVE Urine Bilirubin NEGATIVE NEGATIVE Urine Urobilinogen NORMAL NORMAL MG/DL Urine Leukocyte Esterase 2+ H NEGATIVE Urine RBC (Auto) NEGATIVE NEGATIVE Urine RBC NONE /HPF Urine WBC 5-10 H /HPF Urine Squamous Epithelial Cells 10-25 H /HPF Urine Crystals NONE /LPF Urine Bacteria TRACE /HPF Urine Casts NONE /LPF Urine Mucus MODERATE H /LPF Urine Culture Indicated NO White Blood Count 9.8 4.3-11.0 10^3/uL Red Blood Count 4.93 4.35-5.85 10^6/uL Hemoglobin 14.2 11.5-16.0 G/DL Hematocrit 43 35-52 % Mean Corpuscular Volume 87 80-99 FL Mean Corpuscular Hemoglobin 29 25-34 PG Mean Corpuscular Hemoglobin Concent 33 32-36 G/DL Red Cell Distribution Width 13.2 10.0-14.5 % Platelet Count 275 130-400 10^3/uL Mean Platelet Volume 10.6 H 7.4-10.4 FL Neutrophils (%) (Auto) 68 42-75 % Lymphocytes (%) (Auto) 26 12-44 % Monocytes (%) (Auto) 6 0-12 % Eosinophils (%) (Auto) 1 0-10 % Basophils (%) (Auto) 0 0-10 % Neutrophils # (Auto) 6.6 1.8-7.8 X 10^3 Lymphocytes # (Auto) 2.6 1.0-4.0 X 10^3 Monocytes # (Auto) 0.6 0.0-1.0 X 10^3 Eosinophils # (Auto) 0.1 0.0-0.3 10^3/uL Basophils # (Auto) 0.0 0.0-0.1 10^3/uL Sodium Level 140 135-145 MMOL/L Potassium Level 4.3 3.6-5.0 MMOL/L Chloride Level 107 98-107 MMOL/L Carbon Dioxide Level 23 21-32 MMOL/L Anion Gap 10 5-14 MMOL/L Blood Urea Nitrogen 8 7-18 MG/DL Creatinine 0.81 0.60-1.30 MG/DL Estimat Glomerular Filtration Rate > 60 BUN/Creatinine Ratio 10 Glucose Level 90 70-105 MG/DL Calcium Level 9.6 8.5-10.1 MG/DL Corrected Calcium 8.5-10.1 MG/DL Total Bilirubin 0.2 0.1-1.0 MG/DL Aspartate Amino Transf (AST/SGOT) 11 5-34 U/L Alanine Aminotransferase (ALT/SGPT) 16 0-55 U/L Alkaline Phosphatase 56 40-136 U/L Total Protein 7.4 6.4-8.2 GM/DL Albumin 4.7 H 3.2-4.5 GM/DL My Orders Orders - YULI WHEELER Ua Culture If Indicated (05/17/19 13:23) Urine Bedside (05/17/19 13:23) Cbc With Automated Diff (05/17/19 13:58) Comprehensive Metabolic Panel (05/17/19 13:58) Ct Abd/Pelv W (Appendicitis) (05/17/19 13:58) Iohexol Injection (Omnipaque 350 Mg/Ml 1 (05/17/19 14:15) Received Contrast (Hold Metformin- Contr (05/17/19 14:15) Ns (Ivpb) (Sodium Chloride 0.9% Ivpb Bag (05/17/19 14:15) Ondansetron Oral Dissolve Tab (Zofran (05/17/19 15:00) Ketorolac Injection (Toradol Injection) (05/17/19 15:00) Us Non Ob Transvaginal [id number] (05/17/19 15:45) Fentanyl Injection (Sublimaze Injection (05/17/19 16:00) Medications Given in ED Current Medications Medications Dose Ordered Sig/Joo Route Start Time Stop Time Status Last Admin Dose Admin Fentanyl Citrate 25 mcg ONCE ONCE IVP 05/17/19 16:00 05/17/19 16:01 DC 05/17/19 15:51 25 MCG Iohexol 100 ml ONCE ONCE IV 05/17/19 14:15 05/17/19 14:16 DC 05/17/19 14:19 100 ML Ketorolac Tromethamine 30 mg ONCE ONCE IVP 05/17/19 15:00 05/17/19 15:01 DC 05/17/19 15:12 30 MG Ondansetron HCl 8 mg ONCE ONCE PO 05/17/19 15:00 05/17/19 15:01 DC 05/17/19 15:13 8 MG Vital Signs/I&O 05/17/19 05/17/19 13:36 17:33 Temp 98.3 98.3 Pulse 68 68 Resp 18 18 B/P (MAP) 155/93 (113) 155/93 (113) Pulse Ox 99 O2 Delivery Room Air Blood Pressure Mean: 113 Progress Progress Note : Time: 13:40 Progress Note Patient seen and evaluated, recommended labs and CT of abdomen. 1415 Zofran 8 mg orally and Toradol 30 mg per IV. 1500 patient continuing to have significant abdominal pain on the right lower quadrant, nausea has improved. We'll give fentanyl 25 g IV. Transvaginal ultrasound for Ultrasound right ovary evaluation. 1600 patient to ultrasound. 1700 percent completed showed uterine fibroid and nabothian cysts. Results were discussed with the patient. She is to follow-up with Dr. Riley. Discharge instructions and return precautions reviewed with her Diagnostic Imaging Diagonstic Imaging: CT Plain Films/CT/US/NM/MRI: abdomen, pelvis Comments NAME: YULI COLUNGA [facility] REC#: [id number] PT STATUS: REG ER : 1990 PHYSICIAN: YULI WHEELER [facility] ADMIT DATE: 05/17/19/ER Draft Date of Exam:05/17/19 CT ABD/PELV W (APPENDICITIS) PROCEDURE: CT abdomen and pelvis with contrast, rule out appendicitis. TECHNIQUE: Multiple contiguous axial images were obtained through the abdomen and pelvis after the administration of intravenous contrast. INDICATION: Right lower quadrant pain with nausea. COMPARISON: 12/06/2015 FINDINGS: The appendix is visualized, air-containing and nondilated. There is no hydroureteronephrosis. The liver, gallbladder, bile ducts, spleen, adrenals and pancreas all unremarkable. The aorta is patent and nonaneurysmal. There is no bowel obstruction. Uterus and adnexa appeared nonacute. There is no diverticulitis. There is no ascites, abscess, hematoma or other fluid collection. No abdominal wall defect or fluid collection. The osseous structures and the lung bases are nonacute. IMPRESSION: Normal appendix, unobstructed urinary tracts. No inflammatory process, obstructive features or acute abnormalities identified. Dictated on workstation # [id number] Dict: 05/17/19 1430 Trans: 05/17/19 1437 [facility] [id number] Interpreted by: MEENA OLIVEIRA Electronically signed by: Crissy Imaging: Ultrasound Plain Films/CT/US/NM/MRI: pelvis Comments NAME: YULI COLUNGA MED REC#: [id number] PT STATUS: REG ER : 1990 PHYSICIAN: YULI WHEELER ADMIT DATE: 05/17/19/ER Draft Date of Exam:05/17/19 US NON OB TRANSVAGINAL [id number] REASON FOR EXAM: Right lower quadrant and right pelvic pain. COMPARISON: CT from the same day. TECHNIQUE: Transpelvic and transvaginal sonogram was performed. FINDINGS: The uterus is anteverted and within normal limits in size. The cervix is visualized, and there is a 6 mm nabothian cyst. There is an isoechoic lesion at the anterior uterine myometrium, which measures 2.4 x 1.3 cm, likely a fibroid. The endometrium measures 6 mm in thickness, which is within normal limits. No endometrial fluid collections are seen. The left ovary measures 2.3 x 2.2 x 4.4 cm, demonstrates normal vascularity. The right ovary is not well seen transvaginally, but is visualized transabdominally, measuring 3.5 x 4.9 x 1.9 cm. There appears to be vascular flow present. No free fluid is seen. IMPRESSION: 1. Uterine fibroid and nabothian cyst. The endometrium is unremarkable. 2. Normal-appearing ovaries bilaterally without evidence of torsion. No free fluid. Dictated on workstation # [id number] Dict: 05/17/19 1702 Trans: 05/17/19 1711 [id number] Interpreted by: HOLA DRAPER MD Electronically signed by: Reviewed: Reviewed by Me Departure Impression Primary Impression: Right lower quadrant abdominal pain Additional Impression: Uterine fibroid Qualified Codes: D25.9 - Leiomyoma of uterus, unspecified Disposition: 01 HOME, SELF-CARE Condition: Improved Departure-Patient Inst. Decision time for Depature: 17:00 Referrals: [facility] (PCP/Family) Primary Care Physician Patient Instructions: Uterine Fibroids (DC) Add. Discharge Instructions: Take ibuprofen 600 mg every 8 hours for pain. Use the hydrocodone for more severe pain. Call to schedule follow-up appointment with Dr. Riley. Activities as tolerated no restrictions. Return to emergency department for new, urgent health care needs. All discharge instructions reviewed with patient and/or family. Voiced understanding. Scripts Hydrocodone Bit/Acetaminophen (Hydrocodone/Acetaminophen 5/325mg Tablet) 1 Tab Tab 1 EACH PO Q8H PRN for PAIN-MODERATE, #12 TAB Prov: YULI WHEELER 05/17/19 Copy Copies To 1: CATY RILEY MD, AMY ARNP May 17, 2019 14:54
[2019-05-17] MEDS ORDERED: KETOROLAC 30 MG/ML VIAL IVP ONE (15:00)
[2019-05-17] MEDS ORDERED: ONDANSETRON 4 MG (ZOFRAN) ORAL DISSOLVE TAB PO ONE (15:00)
[2019-05-17] MEDS ORDERED: fentaNYL INJECTION 100 MCG/2 ML AMP IVP ONE (16:00)
--- NOTE | 2019-05-17 17:12 | Diagnostic Imaging Report ---
REASON FOR EXAM: Right lower quadrant and right pelvic pain. COMPARISON: CT from the same day. TECHNIQUE: Transpelvic and transvaginal sonogram was performed. FINDINGS: The uterus is anteverted and within normal limits in size. The cervix is visualized, and there is a 6 mm nabothian cyst. There is an isoechoic lesion at the anterior uterine myometrium, which measures 2.4 x 1.3 cm, likely a fibroid. The endometrium measures 6 mm in thickness, which is within normal limits. No endometrial fluid collections are seen. The left ovary measures 2.3 x 2.2 x 4.4 cm, demonstrates normal vascularity. The right ovary is not well seen transvaginally, but is visualized transabdominally, measuring 3.5 x 4.9 x 1.9 cm. There appears to be vascular flow present. No free fluid is seen. IMPRESSION: 1. Uterine fibroid and nabothian cyst. The endometrium is unremarkable. 2. Normal-appearing ovaries bilaterally without evidence of torsion. No free fluid. Dictated by: Dictated on workstation # [id number]
[2019-05-17] MEDS ORDERED: ACHD5005 PO (17:22)
[2019-05-17 17:33] VITALS: BP 155/93
== END 2019-05-17 17:30 | disposition home or self-care (01) ==
LOC: EDUNIT# 13:22 → ER 13:23
DX: D25.9 Leiomyoma of uterus, unspecified (principal); G43.909 Migraine, unspecified, not intractable, without status migrainosus; F17.200 Nicotine dependence, unspecified, uncomplicated; Z88.2 Allergy status to sulfonamides; Z88.1 Allergy status to other antibiotic agents; Z82.49 Family history of ischemic heart disease and other diseases of the circulatory system; Z80.3 Family history of malignant neoplasm of breast; Z80.8 Family history of malignant neoplasm of other organs or systems; Z87.81 Personal history of (healed) traumatic fracture
CPT/HCPCS: 36415; 74177; 76830; 80053; 81000; 84703; 85025

== ENCOUNTER 2019-11-21 14:08 | Emergency (ER) | payer SELFPAY ==
[~2019-11-21] VITALS: Ht 162 cm; Wt 108.0 kg
[~2019-11-21 14:08] MED LIST changes: -DULO20CA18 PO; +DULO20CA19 PO
--- NOTE | 2019-11-21 15:00 | NUR ---
PT DECLINED WANTING A ICE PACK FOR HER ANKLE.
--- NOTE | 2019-11-21 15:33 | Diagnostic Imaging Report ---
INDICATION: Fall from porch. COMPARISON: 10/10/2018. EXAMINATION: Multiple views of the left ankle. FINDINGS: Sideplate and fibula remain in good position. There has been removal of syndesmotic screws in the interim. Cannulated bone screws medial malleolus remain in good position. No evidence of hardware loosening. Articulating surfaces are smooth. Ankle mortise shows good preservation of joint space. There is some soft tissue swelling over the medial malleolus. There does appear to be a small nondisplaced avulsion fracture off the tip of the medial malleolus. IMPRESSION: 1. Surgical hardware present without evidence of hardware complication. 2. Mild soft tissue swelling with small nondisplaced avulsion fracture along the tip of the medial malleolus. Dictated by: Dictated on workstation # [id number]
--- NOTE | 2019-11-21 15:40 | ED Lower Extremity ---
General Chief Complaint: Lower Extremity Stated Complaint: L ANKLE HX OF FX/NEW INJ Nursing Triage Note: STATES SHE FRACTURED HER LEFT ANKLE IN AUGUST AND TODAY AROUND NOON SHE TRIPPED OFF A CURB REHURTING HER LEFT ANKLE. Nursing Sepsis Screen: No Definite Risk Source: patient Exam Limitations: no limitations History of Present Illness Date Seen by Provider: Nov 21, 2019 Time Seen by Provider: 15:39 Initial Comments 29-year-old female patient presents with complaints of left ankle pain after tripping off of a curb this a.m. Patient reports fracturing the left ankle in August 2018 and had subsequent surgery by Dr. Harris. She states that she did have 2 screws removed from the left fibula by Dr. Harris. She reports chronic left ankle pain, but states it has been worse since this a.m. She is able to walk, but makes the left ankle pain slightly worse. Onset: this morning Pain/Injury Location: left ankle Method of Injury: twisted, other (tripped) Modifying Factors: Improves With Immobilization; Worse With Movement Allergies and Home Medications Allergies Coded Allergies: bupropion (Verified Allergy, Severe, SEIZURE, 11/21/19) naltrexone (Verified Allergy, Severe, SEIZURE, 11/21/19) sulfamethoxazole (Verified Allergy, Intermediate, NAUSEA, 10/01/16) NAUSEA/VOMITING trimethoprim (Verified Allergy, Intermediate, NAUSEA, 10/01/16) NAUSEA/VOMITING Home Medications Hydrocodone Bit/Acetaminophen 1 Tab Tab, 1 EACH PO Q6H PRN for PAIN-MODERATE Prescribed by: SYLWIA AUSTIN on 11/21/19 1610 Patient Home Medication List Home Medication List Reviewed: Yes Review of Systems Constitutional: no symptoms reported Respiratory: no symptoms reported Cardiovascular: no symptoms reported Gastrointestinal: no symptoms reported Musculoskeletal: see HPI; No back pain; joint pain, joint swelling; No neck pain Skin: No change in color, No lumps Psychiatric/Neurological: No Symptoms Reported All Other Systems Reviewed Negative Unless Noted: Yes (Negative excepted noted.) Past Mrzdvwl-Skczgr-Wfxyju Hx Past Med/Social Hx: Reviewed Nursing Past Med/Soc Hx Patient Social History Alcohol Use: Denies Use Recreational Drug Use: Yes (POT) Smoking Status: Current Someday Smoker 2nd Hand Smoke Exposure: No Recent Foreign Travel: No Contact w/Someone Who Travel: No Recent Infectious Disease Expo: No Recent Hopitalizations: No Immunizations Up To Date Tetanus Booster (TDap): Less than 5yrs PED Vaccines UTD: Yes Date of Influenza Vaccine: Jul 27, 2018 Seasonal Allergies Seasonal Allergies: No Past Medical History Surgeries: Yes (LEFT TRIMALLEOLAR FX WITH ORIF 09/04/2018) Orthopedic Respiratory: No Currently Using CPAP: No Currently Using BIPAP: No Cardiac: No Neurological: Yes Headaches /Migraines Reproductive Disorders: No Female Reproductive Disorders: Denies Sexually Transmitted Disease: No HIV/AIDS: No Genitourinary: No Gastrointestinal: No Musculoskeletal: Yes (LEFT ANKLE FX) Chronic Back Pain, Fractures Endocrine: No HEENT: No Loss of Vision: Bilateral Cancer: No Psychosocial: No Integumentary: No Blood Disorders: No Adverse Reaction/Blood Tranf: No Family Medical History Reviewed Nursing Family Hx JOLIE 19 MOTHER Diabetes mellitus 19 MOTHER ENDOMETREAL 19 MOTHER FH: breast cancer in first degree relative Hypercholesterolemia 19 FATHER Hypertension 19 FATHER Malignant neoplasm of endometrium No Pertinent Family Hx Physical Exam Vital Signs Vital Signs - First Documented 11/21/19 11/21/19 14:19 16:21 Temp 37.0 Pulse 73 Resp 16 B/P (MAP) 130/85 (100) Pulse Ox 99 O2 Delivery Room Air Capillary Refill : Less Than 3 Seconds Height, Weight, BMI Height: 5'4.00" Weight: 240lbs. 0.0oz. 108.309399mj; 41.00 BMI Method:Stated General Appearance: WD/WN, no apparent distress HEENT: PERRL/EOMI, pharynx normal Neck: supple, normal inspection Cardiovascular: normal peripheral pulses, regular rate, rhythm, no edema, no murmur Respiratory: lungs clear, normal breath sounds, no respiratory distress, no accessory muscle use Hips: bilateral hip non-tender, bilateral hip normal inspection, bilateral hip normal range of motion, bilateral hip no evidence of injury Legs: bilateral leg non-tender, bilateral leg normal inspection, bilateral leg normal range of motion, bilateral leg no evidence of injury Knees: bilateral knee non-tender, bilateral knee normal inspection, bilateral knee normal range of motion, bilateral knee no evidence of injury Ankles: right ankle non-tender; bilateral ankle normal inspection; right ankle normal range of motion; bilateral ankle no evidence of injury; left ankle bone tenderness (greatest tenderness over the lateral malleolus. Only mild tenderness to the medial malleolus. Unable to appreciate left ankle swelling), left ankle pain, left ankle soft tissue tenderness (bilateral malleoli with greatest tenderness laterally) Feet: bilateral foot non-tender, bilateral foot normal inspection, bilateral foot normal range of motion, bilateral foot no evidence of injury Neurologic/Tendon: normal sensation, normal motor functions, normal tendon functions, responds to pain, no evidence tendon injury Neurologic/Psychiatric: no motor/sensory deficits, alert, normal mood/affect, oriented x 3 Skin: normal color, warm/dry; No ecchymosis Progress/Results/Core Measures Results/Orders My Orders Orders - SYLWIA AUSTIN Ankle, Left, 3 Views (11/21/19 14:50) Hydrocodone/Apap 5/325 Tablet (Lortab 5 (11/21/19 16:15) Medications Given in ED Current Medications Medications Dose Ordered Sig/Joo Route Start Time Stop Time Status Last Admin Dose Admin Acetaminophen/ Hydrocodone Bitart 1 tab ONCE ONCE PO 11/21/19 16:15 11/21/19 16:16 DC 11/21/19 16:18 1 TAB Vital Signs/I&O 11/21/19 11/21/19 14:19 16:21 Temp 37.0 Pulse 73 73 Resp 16 16 B/P (MAP) 130/85 (100) 130/85 (100) Pulse Ox 99 99 O2 Delivery Room Air Blood Pressure Mean: 100 Diagnostic Imaging Diagonstic Imaging: Xray Plain Films/CT/US/NM/MRI: ankle Comments ANKLE, LEFT, 3 VIEWS INDICATION: Fall from porch. COMPARISON: 10/10/2018. EXAMINATION: Multiple views of the left ankle. FINDINGS: Sideplate and fibula remain in good position. There has been removal of syndesmotic screws in the interim. Cannulated bone screws medial malleolus remain in good position. No evidence of hardware loosening. Articulating surfaces are smooth. Ankle mortise shows good preservation of joint space. There is some soft tissue swelling over the medial malleolus. There does appear to be a small nondisplaced avulsion fracture off the tip of the medial malleolus. IMPRESSION: 1. Surgical hardware p resent without evidence of hardware complication. 2. Mild soft tissue swelling with small nondisplaced avulsion fracture along the tip of the medial malleolus. Dictated by: Dictated on workstation # [id number] Reviewed: Reviewed by Me (radiology report reviewed by me) Departure Communication (Admissions) Patient seen and evaluated. Radiographs obtained of the left ankle. Diagnostic findings discussed with the patient. Patient states she has a steplite boot and crutches at home. Patient instructed to use both the boot and crutches until seen by Dr. Syed as an outpatient. Discharge to home. Impression Primary Impression: Closed avulsion fracture of medial malleolus of left tibia Qualified Codes: S82.52XA - Displaced fracture of medial malleolus of left tibia, initial encounter for closed fracture Disposition: HOME, SELF-CARE Condition: Improved Departure-Patient Inst. Decision time for Depature: 16:06 Referrals: [facility] [place] Primary Care Physician JOELLEN SYED MD Patient Instructions: Avulsion Fracture (DC) Add. Discharge Instructions: All discharge instructions reviewed with patient and/or family. Voiced understanding. Medications as directed OR tylenol over the counter as directed for pain. No ibuprofen or aleve. Elevate the left ankle and use an ice pack as needed. Wear your boot at home or an AZO brace until seen by Dr. Syed. Crutches with partial weight bearing on the left lower extremity. Follow-up with Dr. Syed for recheck as an outpatient within the next 7 days. Call Friday morning for an appointment time. Return to the emergency department for worsened pain or any other concerns. Scripts Hydrocodone Bit/Acetaminophen (Hydrocodone/Acetaminophen 5/325mg Tablet) 1 Tab Tab 1 EACH PO Q6H PRN for PAIN-MODERATE MDD 10, #14 TAB 0 Refills Prov: SYLWIA AUSTIN 11/21/19 SYLWIA AUSTIN Nov 21, 2019 15:40
[2019-11-21] MEDS ORDERED: ACHD5005 PO (16:10)
[2019-11-21] MEDS ORDERED: HYDROcodone/APAP 5 MG/325 MG (LORTAB) TAB PO ONE (16:15)
[2019-11-21 16:21] VITALS: BP 130/85
== END 2019-11-21 16:21 | disposition home or self-care (01) ==
LOC: EDUNIT# 14:08 → ER 14:10
DX: S82.52XA Displaced fracture of medial malleolus of left tibia, initial encounter for closed fracture (principal); G43.909 Migraine, unspecified, not intractable, without status migrainosus; F17.200 Nicotine dependence, unspecified, uncomplicated; Z88.1 Allergy status to other antibiotic agents; Z88.2 Allergy status to sulfonamides; Z88.8 Allergy status to other drugs, medicaments and biological substances; Z87.81 Personal history of (healed) traumatic fracture; Z82.49 Family history of ischemic heart disease and other diseases of the circulatory system; W01.0XXA Fall on same level from slipping, tripping and stumbling without subsequent striking against object, initial encounter
CPT/HCPCS: 73610

== ENCOUNTER → 2019-12-02 | Outpatient (CLI) | payer SELFPAY | LOC: ORTHO 08:26 | PROVIDERS: ATTEND Orthopaedic Surgery | DX: S93.402A Sprain of unspecified ligament of left ankle, initial encounter (principal); W10.1XXA Fall (on)(from) sidewalk curb, initial encounter | CPT/HCPCS: 29540 ==

== ENCOUNTER → 2019-12-15 | Outpatient (CLI) | payer OTHER | LOC: ORTHO 10:40 | PROVIDERS: ATTEND Orthopaedic Surgery | DX: S93.422A Sprain of deltoid ligament of left ankle, initial encounter (principal) ==

== ENCOUNTER → 2020-01-05 | Outpatient (CLI) | payer SELFPAY | LOC: ORTHO 09:00 | PROVIDERS: ATTEND Orthopaedic Surgery | DX: S93.422A Sprain of deltoid ligament of left ankle, initial encounter (principal); X58.XXXA Exposure to other specified factors, initial encounter ==

== ENCOUNTER 2020-01-13 21:10 | Emergency (ER) | payer OTHER ==
[~2020-01-13] VITALS: Ht 162 cm; Wt 111.4 kg
[2020-01-13] MEDS ORDERED: SERT50TA2 PO (22:58)
[2020-01-13] MEDS ORDERED: METF-399 PO (22:58)
[2020-01-13 23:22] LABS: BILIRUBIN,URINE NEGATIVE (NEGATIVE); CLARITY,URINE CLOUDY; COLOR,URINE YELLOW; GLUCOSE, URINE (UA) NEGATIVE (NEGATIVE); KETONES,URINE NEGATIVE (NEGATIVE); LEUKOCYTE ESTERASE ,URINE NEGATIVE (NEGATIVE); NITRITE,URINE NEGATIVE (NEGATIVE); PH,URINE 5.5 (5-9); PROTEIN,URINE TRACE (NEGATIVE)
[2020-01-13 23:30] LABS: BACTERIA,URINE TRACE /HPF; RBC,URINE TNTC /HPF; WBC,URINE RARE /HPF
[2020-01-13 23:33] LABS: BASOPHILS % (AUTO) 0 % (0-10); EOSINOPHILS # (AUTO) 0.1 10^3/uL (0.0-0.3); EOSINOPHILS % (AUTO) 1 % (0-10); HEMATOCRIT 39 % (35-52); HEMOGLOBIN 12.5 G/DL (11.5-16.0); LYMPHOCYTES % (AUTO) 31 % (12-44); MEAN CORPUSCULAR HEMOGLOBIN 29 PG (25-34); MEAN CORPUSCULAR HGB CONC 33 G/DL (32-36); MEAN CORPUSCULAR VOLUME 89 FL (80-99); MEAN PLATELET VOLUME 9.6 FL (7.4-10.4); MONOCYTES # (AUTO) 0.8 X 10^3 (0.0-1.0); MONOCYTES % (AUTO) 7 % (0-12); NEUTROPHILS # (AUTO) 7.7 X 10^3 (1.8-7.8); NEUTROPHILS % (AUTO) 61 % (42-75); PLATELET COUNT 301 10^3/uL (130-400); RED CELL DISTRIBUTION WIDTH 13.5 % (10.0-14.5); WHITE BLOOD COUNT 12.7 10^3/uL (4.3-11.0)
[2020-01-13 23:35] LABS: SMEAR SCAN COMMENT YES
[2020-01-13 23:49] LABS: AMPHETAMINE SCREEN, URINE NEGATIVE (NEGATIVE); BARBITURATE SCREEN URINE NEGATIVE (NEGATIVE); BENZODIAZEPINES SCREEN URINE NEGATIVE (NEGATIVE); CANNABINOID SCREEN, URINE NEGATIVE (NEGATIVE); COCAINE SCREEN URINE NEGATIVE (NEGATIVE); METHADONE STAT NEGATIVE (NEGATIVE); METHAMPHETAMINE SCREEN URINE S NEGATIVE (NEGATIVE); OPIATE SCREEN URINE NEGATIVE (NEGATIVE); OXYCODONE STAT NEGATIVE (NEGATIVE); PROPOXYPHENE STAT NEGATIVE (NEGATIVE); TRICYCLIC ANTIDEPRESSANTS SCRE NEGATIVE (NEGATIVE)
[2020-01-13 23:58] LABS: BUN/CREATININE RATIO 10; CARBON DIOXIDE 20 MMOL/L (21-32); CHLORIDE 105 MMOL/L (98-107); CREATININE SERUM 0.78 MG/DL (0.60-1.30); GFR ESTIMATED > 60; GLUCOSE 91 MG/DL (70-105); POTASSIUM 3.5 MMOL/L (3.6-5.0); SODIUM 139 MMOL/L (135-145)
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
[2020-01-14 00:22] VITALS: BP 135/76
[2020-01-14 00:35] VITALS: BP 118/80
== END 2020-01-14 00:38 | disposition home or self-care (01) ==
LOC: EDUNIT# 21:10 → ER 21:12
DX: O20.0 Threatened abortion (principal); O36.0191 Maternal care for anti-D [Rh] antibodies, unspecified trimester, fetus 1; O99.330 Smoking (tobacco) complicating pregnancy, unspecified trimester; F17.200 Nicotine dependence, unspecified, uncomplicated; O24.919 Unspecified diabetes mellitus in pregnancy, unspecified trimester; O99.210 Obesity complicating pregnancy, unspecified trimester; Z88.8 Allergy status to other drugs, medicaments and biological substances; Z88.2 Allergy status to sulfonamides; Z88.1 Allergy status to other antibiotic agents; Z3A.00 Weeks of gestation of pregnancy not specified; Z85.3 Personal history of malignant neoplasm of breast; Z80.49 Family history of malignant neoplasm of other genital organs
CPT/HCPCS: 36415; 80048; 80306; 81000; 84702; 84703; 85025; 86900; 86901; 96372

== ENCOUNTER → 2020-01-15 | Outpatient (CLI) | payer OTHER ==
[~2020-01-15] MED LIST changes: +METF-399 PO; +SERT50TA2 PO
== END ==
LOC: LAB 11:48
PROVIDERS: ATTEND Family Medicine
DX: O20.0 Threatened abortion (principal)
CPT/HCPCS: 36415; 84702

== ENCOUNTER 2020-01-31 16:29 | Outpatient (RCR) | payer OTHER | END 2020-01-31 17:00 | disposition home or self-care (01) | PROVIDERS: ATTEND Orthopaedic Surgery | DX: S93.422A Sprain of deltoid ligament of left ankle, initial encounter (principal); F32.9 Major depressive disorder, single episode, unspecified; Z87.81 Personal history of (healed) traumatic fracture ==

== ENCOUNTER → 2020-01-31 | Outpatient (CLI) | payer OTHER | LOC: ORTHO 08:49 | PROVIDERS: ATTEND Orthopaedic Surgery | DX: S93.422D Sprain of deltoid ligament of left ankle, subsequent encounter (principal) | CPT/HCPCS: 99213 ==

== ENCOUNTER 2020-06-18 18:17 | Emergency (ER) | payer SELFPAY ==
[~2020-06-18] VITALS: Ht 163 cm; Wt 111.4 kg
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
[2020-06-18 18:28] VITALS: BP 130/80
[2020-06-18] MEDS ORDERED: CEPH-507 PO (18:37)
--- NOTE | 2020-06-18 18:37 | ED Integumentary General ---
General Chief Complaint: Skin/Wound Problems Stated Complaint: R ARM BURN X 3 DAYS Nursing Triage Note: Burn to R forearm 3 days ago. c/o arm pain Source: patient Exam Limitations: no limitations History of Present Illness Date Seen by Provider: Jun 18, 2020 Time Seen by Provider: 18:34 Initial Comments To ER with a burn to the dorsal aspect of her right arm. This occurred 3 days ago from heat lamp at work. She just finished Augmentin a few days ago for an ear infection. Comes in today because of persistent pain. Timing/Duration: just prior to arrival Severity: moderate Associated Symptoms: denies symptoms Allergies and Home Medications Allergies Coded Allergies: bupropion (Verified Allergy, Severe, SEIZURE, 11/21/19) naltrexone (Verified Allergy, Severe, SEIZURE, 11/21/19) sulfamethoxazole (Verified Allergy, Intermediate, NAUSEA, 10/01/16) NAUSEA/VOMITING trimethoprim (Verified Allergy, Intermediate, NAUSEA, 10/01/16) NAUSEA/VOMITING Home Medications Metformin HCl 1,000 Mg Tablet, 1,000 MG PO BID, (Reported) Patient Home Medication List Home Medication List Reviewed: Yes Review of Systems Review of Systems Constitutional: see HPI EENTM: see HPI Respiratory: no symptoms reported Cardiovascular: no symptoms reported Genitourinary: no symptoms reported Musculoskeletal: no symptoms reported Skin: see HPI Psychiatric/Neurological: No Symptoms Reported Endocrine: No Symptoms Reported Past Gpcjefz-Pyfoqt-Mfydfe Hx Patient Social History Alcohol Use: Denies Use Recreational Drug Use: No 2nd Hand Smoke Exposure: No Recent Foreign Travel: No Contact w/Someone Who Travel: No Recent Infectious Disease Expo: No Recent Hopitalizations: No Immunizations Up To Date Tetanus Booster (TDap): Less than 5yrs PED Vaccines UTD: Yes Date of Influenza Vaccine: Jul 27, 2018 Seasonal Allergies Seasonal Allergies: No Past Medical History Surgeries: Yes (LEFT ANKLE TRIMALLEOLAR FX/ORIF 2017) Orthopedic Respiratory: No Currently Using CPAP: No Currently Using BIPAP: No Cardiac: No Neurological: Yes Headaches /Migraines Reproductive Disorders: No Female Reproductive Disorders: Denies Sexually Transmitted Disease: No HIV/AIDS: No Genitourinary: No Gastrointestinal: No Musculoskeletal: Yes (LEFT ANKLE TRIMALLEOLAR FX/ORIF) Chronic Back Pain, Fractures Endocrine: Yes (OBESITY--NO METFORMIN FOR WEIGHT LOSS) Diabetes, Non-Insulin dep HEENT: No Loss of Vision: Bilateral Cancer: No Psychosocial: No Integumentary: No Blood Disorders: No Adverse Reaction/Blood Tranf: No Family Medical History JOLIE 19 MOTHER Diabetes mellitus 19 MOTHER ENDOMETREAL 19 MOTHER FH: breast cancer in first degree relative Hypercholesterolemia 19 FATHER Hypertension 19 FATHER Malignant neoplasm of endometrium No Pertinent Family Hx Physical Exam Vital Signs Vital Signs - First Documented 06/18/20 18:28 Temp 36.9 Pulse 78 Resp 18 B/P (MAP) 130/80 (97) Pulse Ox 100 Capillary Refill : Less Than 3 Seconds General Appearance: WD/WN, no apparent distress Respiratory: no respiratory distress, no accessory muscle use Neurologic/Psychiatric: alert, normal mood/affect, oriented x 3 Skin: normal color, warm/dry Skin Problem Location: other (to the dorsal aspect of the right forearm there is a 1 x 5 cm linear burn with about 1 cm of surrounding erythema. The base of the wound has a whitish eschar.) Progress/Results/Core Measures Results/Orders My Orders Orders - HARDEEP WATSON APRN Mupirocin Ointment (Bactroban Ointment (06/18/20 21:00) Lidocaine 2% Jelly 30 Ml (Xylocaine Jell (06/18/20 18:45) Cephalexin Capsule (Keflex Capsule) (06/18/20 18:45) Vital Signs/I&O 06/18/20 18:28 Temp 36.9 Pulse 78 Resp 18 B/P (MAP) 130/80 (97) Pulse Ox 100 Blood Pressure Mean: 97 Departure Impression Primary Impression: Partial thickness burn Additional Impression: Wound infection Disposition: 01 HOME, SELF-CARE Condition: Stable Departure-Patient Inst. Decision time for Depature: 18:36 Referrals: [facility] [place] (PCP) Primary Care Physician JJ PHELAN APRN (Family) Primary Care Physician Patient Instructions: Wound Infection Add. Discharge Instructions: Apply the antibiotic ointment twice daily for the next few days. Take the oral antibiotics as directed. Follow-up with your doctor this week for recheck. Use Tylenol plus ibuprofen for pain control. All discharge instructions reviewed with patient and/or family. Voiced understanding. Scripts Cephalexin (Keflex) 500 Mg Capsule 500 MG PO TID, #15 CAP Prov: HARDEEP WATSON APRN 06/18/20 HARDEEP WATSON APRN Jun 18, 2020 18:37
[2020-06-18] MEDS ORDERED: LIDOCAINE 2% VISCOUS 15 ML UDC ONE (18:38)
[2020-06-18] MEDS ORDERED: LIDOCAINE JELLY 2% (XYLOCAINE) 30 ML TUBE TOP ONE (18:45)
[2020-06-18] MEDS ORDERED: CEPHALEXIN 250 MG (KEFLEX) CAP PO ONE (18:45)
[2020-06-18] MEDS ORDERED: MUPIROCIN 2% OINT 22 GM (BACTROBAN) TUBE TOP SCH (21:00)
== END 2020-06-18 18:45 | disposition home or self-care (01) ==
LOC: EDUNIT# 18:17 → ER 18:19
DX: T22.111A Burn of first degree of right forearm, initial encounter (principal); L08.9 Local infection of the skin and subcutaneous tissue, unspecified; E11.9 Type 2 diabetes mellitus without complications; E66.9 Obesity, unspecified; Z88.8 Allergy status to other drugs, medicaments and biological substances; Z88.2 Allergy status to sulfonamides; Z88.1 Allergy status to other antibiotic agents; Z68.41 Body mass index [BMI] 40.0-44.9, adult; Z79.84 Long term (current) use of oral hypoglycemic drugs; Z80.3 Family history of malignant neoplasm of breast; Z82.49 Family history of ischemic heart disease and other diseases of the circulatory system; Z80.49 Family history of malignant neoplasm of other genital organs; X08.8XXA Exposure to other specified smoke, fire and flames, initial encounter; Y92.59 Other trade areas as the place of occurrence of the external cause
CPT/HCPCS: 99283

== ENCOUNTER 2020-08-21 07:48 | Emergency (ER) | payer BC, OTHER ==
[~2020-08-21] VITALS: Ht 162 cm; Wt 235.0 kg
--- NOTE | 2020-08-21 09:07 | NUR ---
PILLOWS PLACED UNDER RIGHT FOOT FOR COMFORT. NOTIFIED OF BUSY ER ET DR WOULD BE IN SOON HE COULD.
--- NOTE | 2020-08-21 09:58 | Diagnostic Imaging Report ---
EXAMINATION: Right ankle, 3 views INDICATION: Traumatic right ankle pain. Patient reports twisting injury and subsequent pain in the medial ankle. COMPARISON: None available. FINDINGS: No fracture or acute osseous abnormality. Bony alignment is maintained. Ankle mortise is intact, including the medial and lateral clear space. No osteochondral lesion of the talar dome. No significant arthritic change is noted. A rounded sclerotic focus in the distal fibula is favored to represent a benign bone island and is of doubtful clinical significance. Soft tissues are unremarkable. IMPRESSION: No acute fracture or dislocation. Dictated by: Dictated on workstation # [id number]
--- NOTE | 2020-08-21 10:08 | ED Lower Extremity ---
General Chief Complaint: Lower Extremity Stated Complaint: ANKLE PAIN Nursing Triage Note: TRIPPED ET FELL OVER SHOE. COMPLAINS OF RIGHT ANKLE PAIN. PT IS APPX10.5 WEEKS GESTATION Nursing Sepsis Screen: No Definite Risk Source: patient Exam Limitations: no limitations History of Present Illness Date Seen by Provider: Aug 21, 2020 Time Seen by Provider: 09:57 Initial Comments Here with complaint of right ankle pain after twisting it when walking this morning. She reports that she is approximately 10-1/2 weeks . She did not fall and hit her abdomen. She did not hurt anything else. Complains of pain to the right ankle both medial and lateral. Does have swelling especially on the lateral aspect. Onset: this morning Severity: moderate Pain/Injury Location: right ankle Method of Injury: twisted Modifying Factors: Improves With Immobilization; Worse With Movement Allergies and Home Medications Allergies Coded Allergies: bupropion (Verified Allergy, Severe, SEIZURE, 11/21/19) naltrexone (Verified Allergy, Severe, SEIZURE, 11/21/19) sulfamethoxazole (Verified Allergy, Intermediate, NAUSEA, 10/01/16) NAUSEA/VOMITING trimethoprim (Verified Allergy, Intermediate, NAUSEA, 10/01/16) NAUSEA/VOMITING Home Medications Metformin HCl 1,000 Mg Tablet, 1,000 MG PO BID, (Reported) Patient Home Medication List Home Medication List Reviewed: Yes Review of Systems Constitutional: see HPI; No chills, No fever Respiratory: no symptoms reported Cardiovascular: no symptoms reported Musculoskeletal: joint pain, joint swelling, muscle pain Skin: No change in color, No lesions Past Umynvaf-Sfbswy-Zbyvqf Hx Past Med/Social Hx: Reviewed Nursing Past Med/Soc Hx Patient Social History Alcohol Use: Denies Use Recreational Drug Use: Yes Drug of Choice: POT Smoking Status: Current Everyday Smoker 2nd Hand Smoke Exposure: No Recent Foreign Travel: No Contact w/Someone Who Travel: No Recent Infectious Disease Expo: No Recent Hopitalizations: No Immunizations Up To Date Tetanus Booster (TDap): Less than 5yrs PED Vaccines UTD: Yes Date of Influenza Vaccine: Jul 27, 2018 Seasonal Allergies Seasonal Allergies: No Past Medical History Surgeries: Yes (LEFT ANKLE TRIMALLEOLAR FX/ORIF 2017) Orthopedic Respiratory: No Currently Using CPAP: No Currently Using BIPAP: No Cardiac: No Neurological: Yes Headaches /Migraines : Yes Reproductive Disorders: No Female Reproductive Disorders: Denies Sexually Transmitted Disease: No HIV/AIDS: No Genitourinary: No Gastrointestinal: No Musculoskeletal: Yes (LEFT ANKLE TRIMALLEOLAR FX/ORIF) Chronic Back Pain, Fractures Endocrine: Yes (OBESITY--NO METFORMIN FOR WEIGHT LOSS) Diabetes, Non-Insulin dep HEENT: No Loss of Vision: Bilateral Cancer: No Psychosocial: No Integumentary: No Blood Disorders: No Adverse Reaction/Blood Tranf: No Family Medical History JOLIE 19 MOTHER Diabetes mellitus 19 MOTHER ENDOMETREAL 19 MOTHER FH: breast cancer in first degree relative Hypercholesterolemia 19 FATHER Hypertension 19 FATHER Malignant neoplasm of endometrium No Pertinent Family Hx Physical Exam Vital Signs Vital Signs - First Documented 08/21/20 08:00 Temp 36.1 Pulse 71 Resp 16 B/P (MAP) 115/65 (82) Pulse Ox 98 O2 Delivery Room Air Capillary Refill : Less Than 3 Seconds Height, Weight, BMI Height: 5'4.00" Weight: 240lbs. 0.0oz. [id number]; 89.00 BMI Method:Stated General Appearance: WD/WN, no apparent distress Cardiovascular: regular rate, rhythm, no murmur Respiratory: lungs clear, normal breath sounds Ankles: left ankle non-tender, left ankle normal inspection, left ankle normal range of motion, left ankle no evidence of injury; right ankle bone tenderness, right ankle limited range of motion, right ankle pain, right ankle soft tissue tenderness, right ankle swelling Neurologic/Psychiatric: alert, oriented x 3 Skin: normal color, warm/dry Progress/Results/Core Measures Results/Orders My Orders Orders - FREDA ZAVALETA MD Ankle, Right, 3 Views (08/21/20 09:27) Acetaminophen Tablet (Tylenol Tablet) (08/21/20 10:10) Vital Signs/I&O 08/21/20 08/21/20 08:00 10:17 Temp 36.1 36.1 Pulse 71 Resp 16 B/P (MAP) 115/65 (82) Pulse Ox 98 O2 Delivery Room Air Blood Pressure Mean: 82 Progress Progress Note : Progress Note Seen and evaluated. X-ray right ankle. Tylenol 1 g by mouth. No acute findings on x-ray. Jordan wrap and gel splint applied and crutches given. Discharged home with return precautions. Patient verbalize understanding of instructions and agreement with plan. Bedside ultrasound performed by me shows positive movement with positive heart tones at approximately 165 and 10-3/7 by crown-rump length. This is consistent with dates. Patient felt much better afterwards. Diagnostic Imaging Diagonstic Imaging: Xray Plain Films/CT/US/NM/MRI: ankle Comments NAME: YULI COLUNGA [facility] REC#: [id number] PT STATUS: REG ER : 1990 PHYSICIAN: FREDA ZAVALETA MD ADMIT DATE: 08/21/20/ER Draft Date of Exam:08/21/20 ANKLE, RIGHT, 3 VIEWS EXAMINATION: Right ankle, 3 views INDICATION: Traumatic right ankle pain. Patient reports twisting injury and subsequent pain in the medial ankle. COMPARISON: None available. FINDINGS: No fracture or acute osseous abnormality. Bony alignment is maintained. Ankle mortise is intact, including the medial and lateral clear space. No osteochondral lesion of the talar dome. No significant arthritic change is noted. A rounded sclerotic focus in the distal fibula is favored to represent a benign bone island and is of doubtful clinical significance. Soft tissues are unremarkable. IMPRESSION: No acute fracture or dislocation. Dictated on workstation # [id number] Dict: 08/21/20 0952 Trans: 08/21/20 0957 [facility] [id number] Interpreted by: YUAN ALVARES DO Electronically signed by: Departure Impression Primary Impression: Moderate right ankle sprain Qualified Codes: S93.401A - Sprain of unspecified ligament of right ankle, initial encounter Disposition: 01 HOME, SELF-CARE Condition: Stable Departure-Patient Inst. Decision time for Depature: 10:14 Referrals: [facility] [place] (PCP) Primary Care Physician JJ PHELAN APRN (Family) Primary Care Physician Patient Instructions: Ankle Sprain (DC), Going Up and Down Curbs or Stairs With a Walker or Crutches, How to Use Crutches Add. Discharge Instructions: All discharge instructions reviewed with patient and/or family. Voiced understanding. You may take Tylenol 1000 mg every 6-8 hours as needed for pain. Use ice to area of concern 20 minutes per hour as needed for pain. Continue to rest the ankle as well as elevated. You may use compression via Jordan wrap over the next few days as needed. Return for worse pain, swelling, weakness, numbness or other concerns as needed. Follow-up with your Dr. in a few days for recheck as needed. Work/School Note: Work Release Form Date Seen in the Emergency Department: Aug 21, 2020 Return to Work: Aug 24, 2020 Restrictions: No Restrictions FREDA ZAVALETA MD Aug 21, 2020 10:08
[2020-08-21] MEDS ORDERED: ACETAMINOPHEN 500 MG TAB (TYLENOL) PO STA (10:10)
--- NOTE | 2020-08-21 10:17 | NUR ---
UNABLE TO FIND FHT WITH OUR SMALL DOPPLER. DR ZAVALETA IN ROOM ATTMEPING WITH HIS ULTRASOUND MACHINE.
[2020-08-21 10:30] VITALS: BP 115/65
== END 2020-08-21 10:30 | disposition home or self-care (01) ==
LOC: EDUNIT# 07:48 → ER 07:50
DX: S93.491A Sprain of other ligament of right ankle, initial encounter (principal); E11.9 Type 2 diabetes mellitus without complications; E66.9 Obesity, unspecified; F17.200 Nicotine dependence, unspecified, uncomplicated; Z68.45 Body mass index [BMI] 70 or greater, adult; Z83.3 Family history of diabetes mellitus; Z82.49 Family history of ischemic heart disease and other diseases of the circulatory system; Z80.49 Family history of malignant neoplasm of other genital organs; Z80.3 Family history of malignant neoplasm of breast; Z79.84 Long term (current) use of oral hypoglycemic drugs; Z88.1 Allergy status to other antibiotic agents; Z88.2 Allergy status to sulfonamides; Z88.8 Allergy status to other drugs, medicaments and biological substances; X50.1XXA Overexertion from prolonged static or awkward postures, initial encounter
CPT/HCPCS: 73610; 99283; L4350

== ENCOUNTER 2020-09-08 16:12 | Outpatient (CLI) | payer BC ==
--- NOTE | 2020-09-08 15:50 | NUR ---
YULI COLUNGA presented to unit via ambulation accompanied by ,for direct admit r/t vaginal bleeding @ 14 weeks gestation. Pt. gowned, voided, and to bed. VS taken. Pt.oriented to bed controls, call light, TV, heat, and A/C controls.
[2020-09-08 16:05] VITALS: BP 118/59
--- NOTE | 2020-09-08 16:05 | NUR ---
pt reports vaginal bleeding that started today @ work, approx 1330. pinkish in color. bleeding heavier than period. had to change clothes prior to arrival. reports hx of SAB x2. +cramping reported. rates @ 4 on 1-10 scale.
--- NOTE | 2020-09-08 16:40 | NUR ---
up to BR. urine specimen collected, labeled and sent to lab. pt reports having "dime sized clots" when up to BR. "not just with wiping", bright red in color.
[2020-09-08 16:53] LABS: BILIRUBIN,URINE NEGATIVE (NEGATIVE); CLARITY,URINE CLEAR; COLOR,URINE YELLOW; GLUCOSE, URINE (UA) NEGATIVE (NEGATIVE); KETONES,URINE NEGATIVE (NEGATIVE); LEUKOCYTE ESTERASE ,URINE NEGATIVE (NEGATIVE); NITRITE,URINE NEGATIVE (NEGATIVE); PROTEIN,URINE NEGATIVE (NEGATIVE)
[2020-09-08 16:59] LABS: BACTERIA,URINE NEGATIVE /HPF; RBC,URINE 50-100 /HPF; SQUAMOUS EPITHELIAL CELL,UR 0-2 /HPF
[2020-09-08 18:10] LABS: HEMOGLOBIN 12.1 g/dL (11.5-16.0); MEAN PLATELET VOLUME 10.1 fL (9.0-12.2); WHITE BLOOD COUNT 14.1 10^3/uL (4.3-11.0)
--- NOTE | 2020-09-08 18:39 | NUR ---
pt ambulated to room 320 for spec exam. here. 1842- pt up in lithotomy position. 1843- speculum exam per Dr. Garcia. 1849- vaginal culture specimens collected by Dr. mayen and sent to lab. Addendum: 09/08/20 at 1916 by WILIAN SHAH RN when pt placed in lithotomy, bright red bleeding noted on v-pad, covered approx 0.25 of pad. reports placing pad on prior to arrival to hospital.
--- NOTE | 2020-09-08 19:54 | NUR ---
Called Dr. Garcia, update given including wet prep results, new order rc'd for Tylenol for h/a per pt's request.
[2020-09-08] MEDS ORDERED: ACETAMINOPHEN 500 MG TAB (TYLENOL) ONE (20:10)
[2020-09-08] MEDS: ACETAMINOPHEN 500 MG TAB (TYLENOL) PO PRN (20:12)
[2020-09-09] VITALS: BP 122/61
--- NOTE | 2020-09-09 08:25 | NUR ---
pt up to BR. this RN called into room, stating toilet paper "covered" with blood. pt reports up to BR- "not much blood on pad", clots wrapped in toilet paper, per pt's statement, not visible to this RN. bright red blood noted in toilet paper. pt reports not up to BR during noc.
[2020-09-09 08:30] VITALS: BP 121/66
--- NOTE | 2020-09-09 08:30 | NUR ---
initial shift assessment completed. see interventions for further. abd soft, tender to palpation. reports "not as tender as yesterday". FHT's 150's per doppler. will cont to monitor.
[2020-09-09] MEDS: ACETAMINOPHEN 500 MG TAB (TYLENOL) PO PRN (08:40)
--- NOTE | 2020-09-09 11:10 | NUR ---
called into pt's room, up to BR. "there is hardly any blood." small amount of pink discharge noted on toilet paper in toilet. no blood noted in toilet.
--- NOTE | 2020-09-09 11:59 | NUR ---
called to check on pt's status. update given on bleeding, previous and recent trips to BR. dismissal order received. Addendum: 09/09/20 at 1555 by WILIAN SHAH RN requesting FHT's prior to dismissal
--- NOTE | 2020-09-09 12:24 | NUR ---
dismissal instructions given, verbalizes understanding. reviewed sx's to RTC. signature page signed, placed on chart. pt reports last void, no blood noted.
--- NOTE | 2020-09-09 12:25 | NUR ---
[id number] unable to find FHT's per doppler, multiple attempts by RN.
--- NOTE | 2020-09-09 12:30 | NUR ---
was called r/t no FHT's. will be out within the hour for bedside sono.
--- NOTE | 2020-09-09 13:23 | NUR ---
Jose Doe @ pt's bedside. bedside sono to confirm heart rate. 1327- FHR 158 per doppler.
--- NOTE | 2020-09-09 13:30 | NUR ---
pt ambulated to private vehicle with @ side. no sx's of distress noted, stable upon dismissal.
--- NOTE | 2020-09-09 20:39 | Short Stay Summary ---
History of Present Illness History of Present Illness Reason for visit/HPI 29 yo seen at clinic on 09/08 at 14w0d for vaginal bleeding. She had some spotting and was seen for ultrasound. After transabdominal ultrasound was completed and she stood up to get undressed for transvaginal exam she had large amount of bleeding. She was therefore laid back down and transabdominal repeated and fetus still had normal heart tones. Per Radiology report, on initial US a fluid collection was seen adjacent to cervix which was not seen on the second. Due to rather heavy bleeding and concern for possible impending miscarriage, she was admitted for observation. She denied pelvic pain when spotting started, but began having some mild cramping after arrival. Date of Admission 09/08/2020 Date of Discharge 09/09/2020 Time Seen by Provider: 18:00 Attending Physician Caty Garcia MD Admitting Physician [place] [place] Consult Allergies and Home Medications Allergies Coded Allergies: bupropion (Verified Allergy, Severe, SEIZURE, 11/21/19) naltrexone (Verified Allergy, Severe, SEIZURE, 11/21/19) sulfamethoxazole (Verified Allergy, Intermediate, NAUSEA, 10/01/16) NAUSEA/VOMITING trimethoprim (Verified Allergy, Intermediate, NAUSEA, 10/01/16) NAUSEA/VOMITING Home Medications Metformin HCl 1,000 Mg Tablet, 1,000 MG PO BID, (Reported) Patient Home Medication List Home Medication List Reviewed: No Past Zgcmhbd-Dxryjs-Dvdglq Hx Patient Social History Alcohol Use: Denies Use Recreational Drug Use: No Drug of Choice: POT Smoking Status: Never a Smoker 2nd Hand Smoke Exposure: No Recent Hopitalizations: No Recent Infectious Disease Expo: No Immunizations Up To Date Tetanus Booster (TDap): Less than 5yrs Pediatric: Yes Date of Influenza Vaccine: Jul 27, 2018 Seasonal Allergies Seasonal Allergies: No Surgeries Yes (LEFT ANKLE TRIMALLEOLAR FX/ORIF 2017) Orthopedic Respiratory No Currently Using CPAP: No Currently Using BIPAP: No Cardiovascular No Neurological Yes Headaches /Migraines Reproductive System : Yes Expected Date of Delivery: Mar 09, 2021 Hx : 4 Hx Para: 1 Hx Total # of Abortions (Spona: 2 Hx Reproductive Disorders: No Sexually Transmitted Disease: No HIV/AIDS: No Female Reproductive Disorders: Polycystic Ovarian Dis Genitourinary No Gastrointestinal No Musculoskeletal Yes (LEFT ANKLE TRIMALLEOLAR FX/ORIF) Chronic Back Pain, Fractures HEENT History of HEENT Disorders: No Loss of Vision: Bilateral Cancer No Psychosocial History of Psychiatric Problem: Yes Behavioral Health Disorders: Anxiety, Depression Integumentary History of Skin or Integumenta: No Blood Transfusions History of Blood Disorders: No Adverse Reaction to a Blood Tr: No Family Medical History Family Hx: JOLIE 19 MOTHER Diabetes mellitus 19 MOTHER ENDOMETREAL 19 MOTHER FH: breast cancer in first degree relative Hypercholesterolemia 19 FATHER Hypertension 19 FATHER Malignant neoplasm of endometrium Review of Systems Constitutional: No fever Respiratory: No cough, No short of breath : Yes Musculoskeletal: joint pain Physical Exam Vital Signs Vital Signs - First Documented 09/08/20 16:05 B/P (MAP) 118/59 (78) Capillary Refill : Less Than 3 Seconds Height, Weight, BMI Height: 5'4.00" Weight: 240lbs. 0.0oz. 108.443943pn; 89.00 BMI Method:Stated General Appearance: No Apparent Distress, WD/WN Genital/Rectal: Other (speculum exam difficult due to small speculum and body habitus, but cervix appears closed, some bright red blood in vaginal vault, no discharge or inflammation) Short Stay Diagnosis Discharge Diagnosis-Short Stay Admission Diagnosis: Threatened miscarriage Final Discharge Diagnosis: Threatened miscarriage. B negative blood type- not noted during stay, will contact patient to come back for rhogam. Conclusion Labs Microbiology 09/08/20 Genital Culture, Resulted Pending 09/08/20 Wet Prep - Final, Resulted Conclusion/Plan Wet prep with no yeast of clue cells, UA without evidence of infection. CBC with mildly elevated WBC not entirely unusual for , no anemia. Observed overnight, bleeding decreased throughout stay and heart tones remained normal at d/c. CATY GARCIA MD Sep 09, 2020 20:39
== END 2020-09-09 13:30 | disposition home or self-care (01) ==
LOC: WSo 16:12 → LDRP 16:12 → WSo 09-09 13:30
PROVIDERS: ATTEND Family Medicine
DX: O46.92 Antepartum hemorrhage, unspecified, second trimester (principal); Z3A.14 14 weeks gestation of pregnancy
CPT/HCPCS: 36415; 81000; 85027; 86850; 86900; 86901; 87070; 87205; 87210

== ENCOUNTER 2020-09-10 11:02 | Outpatient (CLI) | payer BC ==
--- NOTE | 2020-09-10 11:00 | NUR ---
YULI COLUNGA presented to unit via AMBULATION from ED, with c/o RHOGAM INJECTION. YULI COLUNGA oriented to bed controls, call light, TV, heat, and A/C controls.
--- NOTE | 2020-09-10 12:05 | NUR ---
PT DISCHARGED HOME, AMBULATED AFTER UNIT WITHOUT QUESTIONS OR CONCERNS, PT TO FOLLOW UP WITH DR SCHEDULED OR RETURN TO [facility] WITH C/O.
== END 2020-09-10 12:00 | disposition home or self-care (01) ==
LOC: WSo 11:02 → LDRP 11:02 → WSo 12:00
PROVIDERS: ATTEND Family Medicine
DX: O36.0190 Maternal care for anti-D [Rh] antibodies, unspecified trimester, not applicable or unspecified (principal); Z3A.00 Weeks of gestation of pregnancy not specified
CPT/HCPCS: 96372

== ENCOUNTER 2021-01-09 15:35 | Outpatient (CLI) | payer BC, MEDICAID ==
[~2021-01-09] VITALS: Ht 162.6 cm; Wt 116.4 kg
[2021-01-09] MEDS ORDERED: PREN-37 PO (16:31)
[2021-01-09] MEDS ORDERED: MAGN100T5 PO (16:32)
[2021-01-09 16:33] LABS: BILIRUBIN,URINE NEGATIVE (NEGATIVE); CLARITY,URINE CLEAR; COLOR,URINE YELLOW; GLUCOSE, URINE (UA) NEGATIVE (NEGATIVE); KETONES,URINE NEGATIVE (NEGATIVE); LEUKOCYTE ESTERASE ,URINE NEGATIVE (NEGATIVE); NITRITE,URINE NEGATIVE (NEGATIVE); PROTEIN,URINE NEGATIVE (NEGATIVE)
[2021-01-09 16:36] VITALS: BP 121/69
[2021-01-09 16:42] LABS: BACTERIA,URINE NEGATIVE /HPF
--- NOTE | 2021-01-09 20:01 | Diagnostic Imaging Report ---
INDICATION: Vaginal bleeding COMPARISON: None available TECHNIQUE: Limited third trimester OB ultrasound was performed on 01/09/2021. FINDINGS: A single live intrauterine gestation is identified in a cephalic presentation. The placenta is anteriorly and fundally located without evidence of placenta previa or placental abruption. Amniotic fluid is within normal limits at 10.83 with the largest single pocket measuring 5.5 cm. cardiac motion is documented at 140 bpm. anatomy was not specifically evaluated on this examination. Maternal ovaries were not visualized secondary to the gravid uterus. IMPRESSION: Single live intrauterine gestation in a cephalic presentation without acute abnormality identified. Amniotic fluid index is within normal limits. Dictated by: Dictated on workstation # [id number]
--- NOTE | 2021-01-12 08:00 | Physician Query-Final Dx ---
Clinic Account Progress/Dx Physician Query: Please give diagnosis Please include # weeks gestation Date of Service Jan 09, 2021 at 15:35 MEEK RASHEED Jan 12, 2021 08:00
== END 2021-01-09 21:48 | disposition home or self-care (01) ==
LOC: WSo 15:35 → LDRP 15:35 → WSo 21:48
PROVIDERS: ATTEND Family Medicine
DX: O46.93 Antepartum hemorrhage, unspecified, third trimester (principal); Z3A.31 31 weeks gestation of pregnancy
CPT/HCPCS: 76815; 81000; G0463; 99213

== ENCOUNTER 2021-01-13 19:50 | Outpatient (CLI) | payer MEDICAID ==
[~2021-01-13] VITALS: Ht 162.6 cm; Wt 117.5 kg
[~2021-01-13 19:50] MED LIST changes: +MAGN100T5 PO; +PREN-37 PO
[2021-01-13 20:05] VITALS: BP_SYST 136; BP_DIAS 69; BP_DIAS 96
[2021-01-13 20:20] VITALS: BP 136/69
[2021-01-13 20:30] VITALS: BP 144/76
[2021-01-13 20:40] VITALS: BP 142/68
[2021-01-13 20:50] VITALS: BP 140/66
[2021-01-13 21:00] VITALS: BP 144/74
[2021-01-13 21:11] LABS: BILIRUBIN,URINE NEGATIVE (NEGATIVE); CLARITY,URINE CLEAR; COLOR,URINE YELLOW; GLUCOSE, URINE (UA) NEGATIVE (NEGATIVE); KETONES,URINE NEGATIVE (NEGATIVE); LEUKOCYTE ESTERASE ,URINE NEGATIVE (NEGATIVE); NITRITE,URINE NEGATIVE (NEGATIVE); PROTEIN,URINE NEGATIVE (NEGATIVE)
[2021-01-13 21:20] LABS: BACTERIA,URINE TRACE /HPF; SQUAMOUS EPITHELIAL CELL,UR 0-2 /HPF; WBC,URINE 0-2 /HPF
--- NOTE | 2021-01-15 08:27 | Physician Query-Final Dx ---
MEEK RASHEED 01/15/21 0827: Clinic Account Progress/Dx Physician Query: Please give diagnosis Please include # weeks gestation Date of Service Jan 13, 2021 at 19:50 GUILLERMO LUIS MD 01/16/21 0654: Clinic Account Progress/Dx DIAGNOSIS: Diagnosis 1. IUP at term non labor MEEK RASHEED Jan 15, 2021 08:27 GUILLERMO LUIS MD Jan 16, 2021 06:54
== END 2021-01-13 21:15 | disposition home or self-care (01) ==
LOC: WSo 19:50 → LDRP 19:50 → WSo 21:15
PROVIDERS: ATTEND Family Medicine
DX: Z34.93 Encounter for supervision of normal pregnancy, unspecified, third trimester (principal); Z3A.32 32 weeks gestation of pregnancy
CPT/HCPCS: 81000; 99213

== ENCOUNTER 2021-01-20 12:47 | Outpatient (CLI) | payer MEDICAID ==
[~2021-01-20] VITALS: Ht 162.6 cm; Wt 118.7 kg
[2021-01-20 13:04] VITALS: BP 122/69
[2021-01-20 13:20] LABS: BILIRUBIN,URINE NEGATIVE (NEGATIVE); CLARITY,URINE CLEAR; COLOR,URINE YELLOW; GLUCOSE, URINE (UA) NEGATIVE (NEGATIVE); KETONES,URINE NEGATIVE (NEGATIVE); LEUKOCYTE ESTERASE ,URINE NEGATIVE (NEGATIVE); NITRITE,URINE NEGATIVE (NEGATIVE); PH,URINE 6.5 (5-9); PROTEIN,URINE NEGATIVE (NEGATIVE)
[2021-01-20 13:34] LABS: BACTERIA,URINE TRACE /HPF
--- NOTE | 2021-01-22 08:12 | Physician Query-Final Dx ---
MEEK RASHEED 01/22/21 0812: Clinic Account Progress/Dx Physician Query: Please give diagnosis Please include # weeks gestation Date of Service Jan 20, 2021 at 12:47 CATY RILEY MD 01/22/21 1403: Clinic Account Progress/Dx DIAGNOSIS: Diagnosis Pelvic pain in 33 weeks gestation MEEK RASHEED Jan 22, 2021 08:12 CATY RILEY MD Jan 22, 2021 14:03
== END 2021-01-20 13:59 | disposition home or self-care (01) ==
LOC: WSo 12:47 → LDRP 12:47 → WSo 13:59
PROVIDERS: ATTEND Family Medicine
DX: O26.893 Other specified pregnancy related conditions, third trimester (principal); R10.2 Pelvic and perineal pain; Z3A.33 33 weeks gestation of pregnancy
CPT/HCPCS: 81000; 99213

== ENCOUNTER 2021-02-07 08:56 | Outpatient (CLI) | payer MEDICAID ==
[~2021-02-07] VITALS: Ht 162.6 cm; Wt 119.0 kg
[2021-02-07 09:20] VITALS: BP 127/67
[2021-02-07 10:06] VITALS: BP 127/67
[2021-02-07 10:27] LABS: BILIRUBIN,URINE NEGATIVE (NEGATIVE); CLARITY,URINE CLEAR; COLOR,URINE YELLOW; GLUCOSE, URINE (UA) NEGATIVE (NEGATIVE); KETONES,URINE NEGATIVE (NEGATIVE); LEUKOCYTE ESTERASE ,URINE NEGATIVE (NEGATIVE); NITRITE,URINE NEGATIVE (NEGATIVE); PH,URINE 6.5 (5-9); PROTEIN,URINE NEGATIVE (NEGATIVE)
[2021-02-07 10:45] LABS: BACTERIA,URINE TRACE /HPF
[2021-02-07 10:50] VITALS: BP 126/72
[2021-02-07] MEDS ORDERED: CEPH500T PO (13:31)
--- NOTE | 2021-02-07 13:37 | Diagnostic Imaging Report ---
INDICATION: Biophysical profile, leaking amniotic fluid. TECHNIQUE: Multiple Real-time grayscale images were obtained over the gravid uterus. COMPARISON: 01/09/2021. FINDINGS: The fetus is in cephalic presentation. The placenta is anteriorly located with no features of previa. The amount of amniotic fluid is low normal with an YOVANI of 7.5 cm. heart rate is 140 BPM. The fetus scored a score of 2/2 for breathing movements, movements, posture and tone, and qualitative amniotic fluid volume. IMPRESSION: 1. Single live intrauterine with a normal biophysical profile (8/8). 2. Amniotic fluid index is low normal at 7.5 cm. Dictated by: Dictated on workstation # [id number]
[2021-02-07 13:50] VITALS: BP 127/67
--- NOTE | 2021-02-08 08:54 | Physician Query-Final Dx ---
Clinic Account Progress/Dx Physician Query: Please give diagnosis Please include # weeks gestation Date of Service Feb 07, 2021 at 08:56 MEEK RASHEED Feb 08, 2021 08:54
== END 2021-02-07 13:50 | disposition home or self-care (01) ==
LOC: LDRP 08:56 → WSo 08:56
PROVIDERS: ATTEND Family Medicine
DX: O42.013 Preterm premature rupture of membranes, onset of labor within 24 hours of rupture, third trimester (principal); Z3A.35 35 weeks gestation of pregnancy
CPT/HCPCS: 76805; 76819; 81000; 87088; G0463; 99214

== ENCOUNTER 2021-02-16 18:00 | Inpatient (IN) | payer MEDICAID ==
[~2021-02-16] VITALS: Ht 162.6 cm; Wt 119.7 kg
[~2021-02-16 18:00] MED LIST changes: +CEPH500T PO
[2021-02-16 18:25] VITALS: BP 145/75
[2021-02-16 20:00] VITALS: BP 128/63
[2021-02-16] MEDS ORDERED: ZOLPIDEM 5 MG (AMBIEN) TAB PO ONE (21:15)
[2021-02-16] MEDS ORDERED: morphine INJ 10 MG/ML 1ML (SYR OR VIAL) IM ONE (21:15)
[2021-02-16] MEDS ORDERED: D5 LR IV SOLUTION 1,000 ML IV ONE (23:23)
[2021-02-16] MEDS ORDERED: OXYTOCIN PRE-MIX DRIP 500 ML IV SCH (23:30)
[2021-02-16] MEDS ORDERED: MINERAL OIL CONCENTRATE 99.9% 15 ML UDC TOP PRN (23:30)
[2021-02-16] MEDS: D5 LR IV SOLUTION 1,000 ML IV SCH (23:40)
[2021-02-16] MEDS ORDERED: LACTATED RINGERS 1,000 ML IV ONE (23:45)
[2021-02-16 23:52] LABS: BASOPHILS % (AUTO) 0 % (0-10); EOSINOPHILS % (AUTO) 0 % (0-10); HEMATOCRIT 39 % (35-52); HEMOGLOBIN 12.8 g/dL (11.5-16.0); LYMPHOCYTES # (AUTO) 1.7 10^3/uL (1.0-4.0); LYMPHOCYTES % (AUTO) 8 % (12-44); MEAN CORPUSCULAR HEMOGLOBIN 28 pg (25-34); MEAN CORPUSCULAR HGB CONC 33 g/dL (32-36); MEAN CORPUSCULAR VOLUME 83 fL (80-99); MEAN PLATELET VOLUME 10.8 fL (9.0-12.2); MONOCYTES # (AUTO) 1.3 10^3/uL (0.0-1.0); MONOCYTES % (AUTO) 6 % (0-12); NEUTROPHILS # (AUTO) 17.5 10^3/uL (1.8-7.8); NEUTROPHILS % (AUTO) 84 % (42-75); PLATELET COUNT 197 10^3/uL (130-400); WHITE BLOOD COUNT 20.7 10^3/uL (4.3-11.0)
[2021-02-16 23:54] VITALS: BP 141/78
[2021-02-17] VITALS (41 sets, daily range): BP systolic 105–157; BP diastolic 51–77
[2021-02-17] MEDS ORDERED: fentaNYL 2 mcg/ml BUPIVA 0.125 100 ML ONE (00:09)
[2021-02-17 00:27] LABS: BAND NEUTROPHILS 2 %; EOSINOPHILS % (MANUAL) 1 %; LYMPHOCYTES % (MANUAL) 8 %; MONOCYTES % (MANUAL) 7 %; NEUTROPHILS % (MANUAL) 82 %; RBC MORPH NORMAL
[2021-02-17] MEDS ORDERED: fentaNYL INJ 100 MCG/2 ML AMP ONE ×2 (00:29→01:25)
[2021-02-17] MEDS ORDERED: BUPIVACAINE 0.25% 30 ML (SENSORCAINE) VIAL ONE (00:29)
[2021-02-17] MEDS ORDERED: NALOXONE 0.4 MG/ML 1 ML (NARCAN) VIAL IV PRN (00:45)
[2021-02-17] MEDS ORDERED: LACTATED RINGERS 1,000 ML IV ONE (00:45)
[2021-02-17] MEDS ORDERED: CATHETER FLUSH 10 ML SYR IV PRN (00:45)
[2021-02-17] MEDS ORDERED: fentaNYL 2 mcg/ml BUPIVA 0.125 100 ML IV SCH (00:45)
[2021-02-17] MEDS ORDERED: CATHETER FLUSH 10 ML SYR IV SCH ×2 (06:00→14:00)
[2021-02-17] MEDS: D5 LR IV SOLUTION 1,000 ML IV SCH (06:52)
[2021-02-17] MEDS ORDERED: ACETAMINOPHEN 500 MG TAB (TYLENOL) PO ONE (09:15)
--- NOTE | 2021-02-17 09:16 | History & Physical-OB/GYN ---
SOPHIA MCMANUS,MED STUDENT 02/17/21 0916: OB - Chief Complaint & HPI Date/Time Date of Admission: Date of Admission: Feb 16, 2021 at 23:32 Date seen by a Provider: Feb 17, 2021 Time Seen by a Provider: 08:50 Chief Complaint/History OB-Reason for Admission/Chief: Onset of Labor Hx : 4 Hx Para: 1 Expected Date of Delivery: Mar 09, 2021 Gestational Age in Weeks: 37 Gestational Age in Days: 1 History of Labs B-, antibody neg, RI, HIV/HepB/RPR NR, GC/chlamydia neg. GBS neg Allergies and Home Medications Allergies Coded Allergies: bupropion (Verified Allergy, Severe, SEIZURE, 11/21/19) naltrexone (Verified Allergy, Severe, SEIZURE, 11/21/19) sulfamethoxazole (Verified Allergy, Intermediate, NAUSEA, 10/01/16) NAUSEA/VOMITING trimethoprim (Verified Allergy, Intermediate, NAUSEA, 10/01/16) NAUSEA/VOMITING Home Medications Cephalexin 500 Mg Tablet, 500 MG PO BID Prescribed by: ELVER WOODALL on 02/07/21 1331 Magnesium Amino Acid Chelate 100 Mg Tablet, 250 MG PO HS, (Reported) Vit/Iron Fumarate/FA 1 Each Tablet, 1 EACH PO DAILY, (Reported) Patient Home Medication List Home Medication List Reviewed: Yes OB - History Hx of Present Care: Yes Ultrasounds: Normal mid trimester US Obstetrical Complications: Gestational Hypertension, Other (COVID 19, recurrent bleeding, positive anti-D titer) Information Induced Hypertension: Yes Maternal Gestational Diabetes: No Hemorrhage: No Obstetrical History Hx : 4 Hx Para: 1 Number of Living Children: 1 Hx Termination: No Hx Total # of Abortions (Spona: 2 Hx Multiple Gestation: No Hx Induced Hypertens: No Hx Maternal Gestational Diabet: No Delivery History Hx Dystocia: No Hx Forceps Assisted Delivery: No Hx Vacuum Extraction Assisted: No Hx Placenta Abnormality: No Hx Distress: No Hx Large For Gestational Age I: No Hx Small for Gestational Age I: No Hx Section: No Hx Vaginal Delivery Post C-Sec: No Hx Blood Disorders: No Adverse Rxn to Tranfusion: No Patient Past Medical History PMHx: bipolar disorder morbid obesity seizure 2019 Social History/Family History Alcohol Use: Denies Use Recreational Drug Use: No 2nd Hand Smoke Exposure: No Immunizations Hepatitis A: Yes Hepatitis B: Yes Tetanus Booster (TDap): Less than 5yrs Date of Influenza Vaccine: Oct 19, 2021 Rubella: immune RPR/VDRL: Negative GBS Status: Negative HBsAG: Negative OB - Admission Exam Physical Exam Vitals: Vital Signs 02/17/21 02/17/21 02/17/21 07:30 08:00 08:30 Temp 37.0 Pulse 96 Resp 20 B/P (MAP) 129/63 (85) Pulse Ox 99 O2 Delivery Room Air HEENT: NCAT Heart: Rhythm Normal Abdomen: Non tender Extremities: Normal Reflexes: Normal Cervical Dilatation: 8cm Effacement: Other (80) Station: -2 Membranes: Ruptured Amniotic Fluid: Clear Heart Rate: 130's Accelerations: Accelerations Present Decelerations: No Decelerations Short Term Variability: Present Shelter Variability: Average (6-25) Reynoso Scoring Tool (Modified) Dilation (cm): >5cm (3) Effacement (%): 80-100% (3) Descent/Station: -2 (1) Cervix Consistency: Soft (2) Cervix Position: Middle/Mid-Position (1) Add 1 point for: Each previous vaginal delivery (1) Reynoso Score: 11 Labs Laboratory Tests Test 02/16/21 23:36 Range/Units White Blood Count 20.7 H 4.3-11.0 10^3/uL Red Blood Count 4.62 3.80-5.11 10^6/uL Hemoglobin 12.8 11.5-16.0 g/dL Hematocrit 39 35-52 % Mean Corpuscular Volume 83 80-99 fL Mean Corpuscular Hemoglobin 28 25-34 pg Mean Corpuscular Hemoglobin Concent 33 32-36 g/dL Red Cell Distribution Width 15.8 H 10.0-14.5 % Platelet Count 197 130-400 10^3/uL Mean Platelet Volume 10.8 9.0-12.2 fL Immature Granulocyte % (Auto) 1 % Neutrophils (%) (Auto) 84 H 42-75 % Lymphocytes (%) (Auto) 8 L 12-44 % Monocytes (%) (Auto) 6 0-12 % Eosinophils (%) (Auto) 0 0-10 % Basophils (%) (Auto) 0 0-10 % Neutrophils # (Auto) 17.5 H 1.8-7.8 10^3/uL Lymphocytes # (Auto) 1.7 1.0-4.0 10^3/uL Monocytes # (Auto) 1.3 H 0.0-1.0 10^3/uL Eosinophils # (Auto) 0.0 0.0-0.3 10^3/uL Basophils # (Auto) 0.0 0.0-0.1 10^3/uL Immature Granulocyte # (Auto) 0.1 0.0-0.1 10^3/uL Neutrophils % (Manual) 82 % Lymphocytes % (Manual) 8 % Monocytes % (Manual) 7 % Eosinophils % (Manual) 1 % Band Neutrophils 2 % Blood Morphology Comment NORMAL OB - Assessment/Plan/Diagnosis Assessment Assessment: active labor Admission Dx Term at 37 weeks 1 day Rubella Immune Blood B- GBS Negative Onset of Labor Admission Status: Inpatient Order (span 2 midnights) Reason for Inpatient Admission: Labor, delivery, and course Plan Plan: Expectant Management CATY RILEY MD 02/17/21 1119: Allergies and Home Medications Allergies Coded Allergies: bupropion (Verified Allergy, Severe, SEIZURE, 11/21/19) naltrexone (Verified Allergy, Severe, SEIZURE, 11/21/19) sulfamethoxazole (Verified Allergy, Intermediate, NAUSEA, 10/01/16) NAUSEA/VOMITING trimethoprim (Verified Allergy, Intermediate, NAUSEA, 10/01/16) NAUSEA/VOMITING Home Medications Cephalexin 500 Mg Tablet, 500 MG PO BID Prescribed by: ELVER WOODALL on 02/07/21 1331 Magnesium Amino Acid Chelate 100 Mg Tablet, 250 MG PO HS, (Reported) Vit/Iron Fumarate/FA 1 Each Tablet, 1 EACH PO DAILY, (Reported) Supervisory-Addendum Brief Verification & Attestation Participated in pt care: history, MDM, physical Personally performed: exam, history Care discussed with: Medical Student Procedures: n/a I personally saw and examined patient and directed plan of care. Agree with documentation by CLAUDIO Mcmanus. SOPHIA MCMANUS,MED STUDENT Feb 17, 2021 09:16 CATY RILEY MD Feb 17, 2021 11:19
[2021-02-17] MEDS ORDERED: LIDOCAINE/EPI 2% 1:200,00 (XYLOCAINE) 10 ML VIAL ONE (12:08)
--- NOTE | 2021-02-17 12:56 | OB Labor & Delivery Record ---
Vag Delivery Note Vag Delivery Note Date of Delivery: 02/17/21 Preoperative Diagnosis: Laverne Salinas is a (30 /Para 4 / 1,Gestational Age (wks)37with 1d Postoperative Diagnosis: Same Surgeon: CATY RILEY Video Clerk: CARLOS [email or web address] Anesthesia: Epidural Delivery Type: Spontaneous vaginal delivery Findings: Viable female , apgars 5/7, weight 6#11 Lacerations: none Intact placenta with 3 vessel cord. No nuchal cord, body cord or shoulder dystocia Estimated Blood Loss: 250 ml Complications: None Condition: Stable Description of Procedure: The patient is a 30 year old female who presented in active labor. She was admitted and informed consent was obtained. Her labor course was remarkable for slow active phase, augmented with AROM and pitocin. She progressed to complete dilatation and began to push. She was then set up for delivery. The infant's head was delivered atraumatically in the Oa position. The shoulders and remainder of the 's body were then delivered without difficulty. Upon delivery, the infant was placed on maternal abdomen. After a delay, the cord was doubly clamped and cut and the was handed off to the pediatric staff. An intact placenta with 3-vessel cord deliver ed via Jayden and there was found to be minimal bleeding.~ Vigorous fundal massage was performed and the fundus was found to be firm. IV oxytocin was given. Examination of the vagina and perineum revealed no lacerations. Following the delivery, sponge, instrument and needle counts were correct. Mom and baby were both in stable condition in the labor suite. Vitals - Labs Vital Signs - I&O Vital Signs Date Time Temp Pulse Resp B/P (MAP) Pulse Ox O2 Delivery O2 Flow Rate FiO2 02/17/21 11:30 100 18 133/65 (87) Room Air 02/17/21 11:15 37.3 93 18 132/64 (86) Room Air 02/17/21 11:00 98 18 133/63 (86) Room Air 02/17/21 10:45 101 18 141/77 (98) Room Air 02/17/21 10:30 100 18 129/60 (83) 96 Room Air 02/17/21 10:15 96 18 128/64 (85) 96 Room Air 02/17/21 10:00 37.0 96 18 134/64 (87) Room Air 02/17/21 09:30 101 18 123/62 (82) Room Air 02/17/21 09:00 100 18 136/68 (90) Room Air 02/17/21 08:30 96 20 129/63 (85) Room Air 02/17/21 08:00 37.0 96 20 131/64 (86) Room Air 02/17/21 07:30 94 20 132/70 (90) 99 Room Air 02/17/21 06:30 37.1 121/57 (78) 02/17/21 06:00 117/58 (77) 02/17/21 05:30 122/62 (82) 02/17/21 05:00 108/56 (73) 02/17/21 04:30 105/59 (74) 02/17/21 04:00 107/56 (73) 02/17/21 03:30 113/55 (74) 02/17/21 03:00 124/60 (81) 02/17/21 02:30 36.6 106/51 (69) 02/17/21 02:00 113/53 (73) 02/17/21 01:30 118/60 (79) 02/17/21 01:00 135/76 (95) 02/17/21 00:30 157/73 (101) 02/17/21 00:00 132/72 (92) 02/16/21 23:54 37.4 91 18 99 Room Air 02/16/21 20:00 128/63 (84) 02/16/21 18:25 36.4 100 20 98 Room Air Labs Laboratory Tests 02/16/21 23:36: White Blood Count 20.7H, Red Blood Count 4.62, Hemoglobin 12.8, Hematocrit 39, Mean Corpuscular Volume 83, Mean Corpuscular Hemoglobin 28, Mean Corpuscular Hemoglobin Concent 33, Red Cell Distribution Width 15.8H, Platelet Count 197, Mean Platelet Volume 10.8, Immature Granulocyte % (Auto) 1, Neutrophils (%) (Auto) 84H, Lymphocytes (%) (Auto) 8L, Monocytes (%) (Auto) 6, Eosinophils (%) (Auto) 0, Basophils (%) (Auto) 0, Neutrophils # (Auto) 17.5H, Lymphocytes # (Auto) 1.7, Monocytes # (Auto) 1.3H, Eosinophils # (Auto) 0.0, Basophils # (Auto) 0.0, Immature Granulocyte # (Auto) 0.1, Neutrophils % (Manual) 82, Lymphocytes % (Manual) 8, Monocytes % (Manual) 7, Eosinophils % (Manual) 1, Band Neutrophils 2, Blood Morphology Comment NORMAL CATY RILEY MD Feb 17, 2021 12:56
[2021-02-17] MEDS ORDERED: WITCH HAZEL(TUCKS) 40 EA JAR ONE (13:07)
[2021-02-17] MEDS ORDERED: OXYTOCIN PRE-MIX DRIP 500 ML IV ONE (13:07)
[2021-02-17] MEDS ORDERED: BENZOCAINE/MENTHOL (DERMOPLAST) 56 ML CAN TP ONE (13:07)
[2021-02-17] MEDS ORDERED: OXYTOCIN PRE-MIX DRIP 500 ML IV SCH (13:15)
[2021-02-17] MEDS ORDERED: WITCH HAZEL(TUCKS) 40 EA JAR TOP PRN (13:15)
[2021-02-17] MEDS ORDERED: BENZOCAINE/MENTHOL (DERMOPLAST) 56 ML CAN TP PRN (13:15)
[2021-02-17] MEDS ORDERED: MEASLES,MUMPS,RUBELLA 1 EA INJ SQ ONE (13:15)
[2021-02-17] MEDS ORDERED: diphenhydrAMINE 50 MG/ML INJ (BENADRYL) IVP ONE (13:45)
[2021-02-17] MEDS ORDERED: diphenhydrAMINE 50 MG/ML INJ (BENADRYL) ONE (14:02)
[2021-02-17] MEDS: IBUPROFEN 600 MG (MOTRIN) TAB PO SCH (18:05)
[2021-02-17] MEDS: DOCUSATE SODIUM 100 MG (COLACE) CAP PO SCH (21:11)
[2021-02-18] MEDS: IBUPROFEN 600 MG (MOTRIN) TAB PO SCH ×4 (00:29→18:50)
[2021-02-18 00:30] VITALS: BP 109/56
[2021-02-18 06:00] VITALS: BP 115/69
[2021-02-18 09:00] VITALS: BP 109/59
[2021-02-18] MEDS: DOCUSATE SODIUM 100 MG (COLACE) CAP PO SCH (09:07)
[2021-02-18 11:36] LABS: BASOPHILS % (AUTO) 0 % (0-10); EOSINOPHILS # (AUTO) 0.1 10^3/uL (0.0-0.3); EOSINOPHILS % (AUTO) 0 % (0-10); HEMATOCRIT 33 % (35-52); HEMOGLOBIN 10.7 g/dL (11.5-16.0); LYMPHOCYTES # (AUTO) 2.3 10^3/uL (1.0-4.0); LYMPHOCYTES % (AUTO) 13 % (12-44); MEAN CORPUSCULAR HEMOGLOBIN 28 pg (25-34); MEAN CORPUSCULAR HGB CONC 32 g/dL (32-36); MEAN CORPUSCULAR VOLUME 88 fL (80-99); MEAN PLATELET VOLUME 11.4 fL (9.0-12.2); MONOCYTES # (AUTO) 1.2 10^3/uL (0.0-1.0); MONOCYTES % (AUTO) 7 % (0-12); NEUTROPHILS # (AUTO) 13.9 10^3/uL (1.8-7.8); NEUTROPHILS % (AUTO) 79 % (42-75); PLATELET COUNT 193 10^3/uL (130-400); WHITE BLOOD COUNT 17.6 10^3/uL (4.3-11.0)
--- NOTE | 2021-02-18 11:45 | Postpartum Progress Note ---
SOPHIA MCMANUS,MED STUDENT 02/18/21 1144: Note Note Day # 1 Subjective: Patient is without complaints. Ambulating, voiding. Tolerating a regular diet without nausea or vomiting. Normal lochia, she describes passing 2 egg sized clots around 0400 this morning. Vaginal bleeding as since decreased. Pain is well controlled with oral pain medications. She notes some pain in her back at site of epidural. Breast feeding with bottle supplementation. Objective: Physical Exam: General - Alert and oriented, no apparent distress Abdomen - Soft, appropriately tender to palpation, non-distended, fundus firm at umbilicus Extremities - no edema, negative Jay's bilaterally Back - ecchymosis noted over injection sited on lumbar spine, mild tenderness, normal ROM Assessment: post- day # 1, status post uncomplicated vaginal delivery of viable female. Recovering well, hemodynamically stable. Leukocytosis trending down. Plan: Routine care. Encourage breast feeding. Encourage ambulation. Vitals - Labs Vital Signs - I&O Vital Signs Date Time Temp Pulse Resp B/P (MAP) Pulse Ox O2 Delivery O2 Flow Rate FiO2 02/18/21 09:00 36.5 77 18 109/59 (76) 98 Room Air 02/18/21 06:00 36.2 64 18 115/69 (84) 96 Room Air 02/18/21 00:30 36.6 78 18 109/56 (73) 99 Room Air 02/17/21 20:00 36.8 90 20 115/53 (73) 98 Room Air 02/17/21 16:41 37.2 100 18 122/59 (80) 98 Room Air I & O 02/18/21 07:00 Intake Total 1700 ml Output Total 2600 ml Balance -900 ml Labs Laboratory Tests 02/18/21 07:41: White Blood Count 17.6H, Red Blood Count 3.78L, Hemoglobin 10.7L, Hematocrit 33L , Mean Corpuscular Volume 88, Mean Corpuscular Hemoglobin 28, Mean Corpuscular Hemoglobin Concent 32, Red Cell Distribution Width 16.2H, Platelet Count 193, Me an Platelet Volume 11.4, Immature Granulocyte % (Auto) 1, Neutrophils (%) (Auto) 79H, Lymphocytes (%) (Auto) 13, Monocytes (%) (Auto) 7, Eosinophils (%) (Auto) 0, Basophils (%) (Auto) 0, Neutrophils # (Auto) 13.9H, Lymphocytes # (Auto) 2.3, Monocytes # (Auto) 1.2H, Eosinophils # (Auto) 0.1, Basophils # (Auto) 0.0, Immat ure Granulocyte # (Auto) 0.1 CATY RILEY MD 02/18/21 1352: Supervisory-Addendum Brief Supervisory Addendum I personally saw and examined patient today and directed plan of care, agree with documentation by OMSGloria Mcmanus. SOPHIA MCMANUS,MED STUDENT Feb 18, 2021 11:44 CATY RILEY MD Feb 18, 2021 13:52
[2021-02-18 12:45] VITALS: BP 121/60
[2021-02-18 17:15] VITALS: BP 125/61
[2021-02-18] MEDS ORDERED: ACETAMINOPHEN 500 MG TAB (TYLENOL) ONE (23:57)
[2021-02-19] VITALS: BP 128/75
[2021-02-19] MEDS: ACETAMINOPHEN 500 MG TAB (TYLENOL) PO PRN ×2 (00:04→08:50)
[2021-02-19] MEDS: IBUPROFEN 600 MG (MOTRIN) TAB PO SCH ×3 (05:55→12:38)
[2021-02-19 05:56] VITALS: BP 133/69
[2021-02-19] MEDS ORDERED: IBUP-844 PO (08:15)
[2021-02-19] MEDS ORDERED: FERR325T18 PO (08:15)
--- NOTE | 2021-02-19 08:35 | Discharge Summary ---
SOPHIA MCMANUS,MED STUDENT 02/19/21 0834: Discharge Summary Hospital Course Problems Reviewed?: Yes Hospital Course Date of Admission: Feb 16, 2021 at 23:32 Admission Diagnosis : Intrauterine at 37 weeks gestation [facility] Date of [facility]: 02/19/21 Discharge Diagnosis: Intrauterine at 37 weeks gestation Hospital Course: Patient was admitted in active labor on 02/19/21. She is a G4 now P2002. [facility] patient underwent labor course with epidural analgesia. She went on to deliver a term viable female. No lacerations requiring repair were noted. See labor and delivery note for full details. Following delivery patient had routine care orders. She had no complications during the remainder of the hospital stay. Follow-up with Dr. Garcia in 6 weeks Labs and Pending Lab Test: Home Meds Active Ferrous Sulfate 325 Mg Tablet 325 Mg PO DAILY Ibu (Ibuprofen) 600 Mg Tablet 600 Mg PO Q6HR PRN Reported Magnesium (Magnesium Amino Acid Chelate) 100 Mg Tablet 250 Mg PO HS Tablet ( Vit/Iron Fumarate/FA) 1 Each Tablet 1 Each PO DAILY Zoloft (Sertraline HCl) 50 Mg Tablet 50 Mg PO Activity: Activity as Tolerated Nothing Inside Vagina: No Douching, No [place], No Tampons Discharge Diet: No Restrictions Discharge Physical Examination Allergies: Coded Allergies: bupropion (Verified Allergy, Severe, SEIZURE, 11/21/19) naltrexone (Verified Allergy, Severe, SEIZURE, 11/21/19) sulfamethoxazole (Verified Allergy, Intermediate, NAUSEA, 10/01/16) NAUSEA/VOMITING trimethoprim (Verified Allergy, Intermediate, NAUSEA, 10/01/16) NAUSEA/VOMITING Vitals & I&Os Vital Signs Date Time Temp Pulse Resp B/P (MAP) Pulse Ox O2 Delivery O2 Flow Rate FiO2 02/19/21 05:56 36.8 80 18 133/69 (90) 96 Room Air General Appearance: No Apparent Distress, WD/WN HEENT: PERRL/EOMI Respiratory: Chest Non Tender, Lungs Clear, Normal Breath Sounds, No Accessory Muscle Use, No Respiratory Distress Cardiovascular: Regular Rate, Rhythm, No Murmur Gastrointestinal: Normal Bowel Sounds, No Organomegaly, Soft, Other (mild tendernedd over firm uterus ) Extremity: Normal Capillary Refill, No Pedal Edema Skin: Normal Color, Warm/Dry Neurologic/Psychiatric: Alert, Oriented x3, Normal Mood/Affect Discharge Summary Date of Admission Feb 16, 2021 at 23:32 Date of Discharge Discharge Date: Feb 19, 2021 CATY GARCIA MD 02/19/21 1042: Discharge Summary Hospital Course Hospital Course Discharge diagnosis: s/p spontaneous vaginal delivery, asymptomatic anemia/acute blood loss anemia Discharge Physical Examination Allergies: Coded Allergies: bupropion (Verified Allergy, Severe, SEIZURE, 11/21/19) naltrexone (Verified Allergy, Severe, SEIZURE, 11/21/19) sulfamethoxazole (Verified Allergy, Intermediate, NAUSEA, 10/01/16) NAUSEA/VOMITING trimethoprim (Verified Allergy, Intermediate, NAUSEA, 10/01/16) NAUSEA/VOMITING Supervisory-Addendum Brief Verification & Attestation Participated in pt care: history, MDM, physical Personally performed: exam, history, MDM Care discussed with: Medical Student Procedures: n/a I personally repeated history and exam and directed plan of care, agree with documentation by OMRamo Mcmanus. SOPHIA MCMANUS,MED STUDENT Feb 19, 2021 08:34 CATY GARCIA MD Feb 19, 2021 10:42
[2021-02-19 08:48] VITALS: BP 127/68
[2021-02-19] MEDS: DOCUSATE SODIUM 100 MG (COLACE) CAP PO SCH ×2 (08:50)
[2021-02-19 17:47] VITALS: BP 123/73
== END 2021-02-19 17:50 | disposition home or self-care (01) | DRG 806 ==
LOC: WSo 18:00 → LDRP 18:00 → WSo 23:31 → LDRP 23:32
PROVIDERS: ADMIT Family Medicine; ATTEND Family Medicine
PROC: 10E0XZZ Delivery of Products of Conception, External Approach (ICD-10-PCS; principal; 2021-02-17)
DX: O13.4 Gestational [pregnancy-induced] hypertension without significant proteinuria, complicating childbirth (principal); D62 Acute posthemorrhagic anemia; Z37.0 Single live birth; Z3A.37 37 weeks gestation of pregnancy; Z86.16 Personal history of COVID-19; O99.214 Obesity complicating childbirth; E66.01 Morbid (severe) obesity due to excess calories; O90.81 Anemia of the puerperium; Z79.2 Long term (current) use of antibiotics
CPT/HCPCS: 36415; 83033; 85007; 85025; 85027; 86850; 86900; 86901

== ENCOUNTER 2021-09-11 18:56 | Emergency (ER) | payer MEDICAID ==
[~2021-09-11 18:56] MED LIST changes: -BACI1OIN6 TP; +BACI1PAC28 TP; +FERR325T18 PO; +IBUP-844 PO; -SULF1TAB35 PO; +SULF1TAB38 PO
== END 2021-09-11 19:30 | disposition left against medical advice (07) ==
LOC: EDUNIT# 18:56 → ER 18:57
DX: G43.909 Migraine, unspecified, not intractable, without status migrainosus (principal)

== ENCOUNTER 2021-10-02 21:21 | Emergency (ER) | payer MEDICAID ==
[~2021-10-02] VITALS: Ht 162 cm; Wt 113.4 kg
[2021-10-02] MEDS ORDERED: BENZ100C18 PO (22:40)
--- NOTE | 2021-10-02 22:40 | ED Cough/URI ---
General Chief Complaint: Cough/Cold/Flu Symptoms Stated Complaint: COUGH, HEADACHE, CHILLS, CHEST PAIN Nursing Triage Note: PT AMBULATES TO ER9 WITH C/O OF CP, COUGH, HEADACHE, SINUS DRAINAGE X1 DAY. PT REPORTS THAT SHE REFUSES TO BE COVID TESTED. AIRWAY PATENT NO IMMEDIATE DISTRESS. Source: patient Exam Limitations: no limitations History of Present Illness Date Seen by Provider: Oct 02, 2021 Time Seen by Provider: 22:21 Initial Comments Patient presents ER by private conveyance from home with chief complaint of 3 days of nonproductive cough, chest ache body aches headache runny nose nasal congestion mild sore throat. Cough is bad throughout the day. She does not have a history of COPD, asthma or smoking. She has no known sick contacts. She does not want tested for Covid or influenza because last time she had a swab in her nose it caused a migraine for a month and a half. Primary care by [facility] and she has an appointment in 8 days. No nausea vomiting diarrhea. Allergies and Home Medications Allergies Coded Allergies: bupropion (Verified Allergy, Severe, SEIZURE, 11/21/19) naltrexone (Verified Allergy, Severe, SEIZURE, 11/21/19) sulfamethoxazole (Verified Allergy, Intermediate, NAUSEA, 10/01/16) NAUSEA/VOMITING trimethoprim (Verified Allergy, Intermediate, NAUSEA, 10/01/16) NAUSEA/VOMITING Patient Home Medication List Home Medication List Reviewed: Yes Ferrous Sulfate (Ferrous Sulfate) 325 Mg Tablet, 325 MG PO DAILY Prescribed by: CATY RILEY on 02/19/21 0815 Ibuprofen (Ibu) 600 Mg Tablet, 600 MG PO Q6HR PRN for PAIN-MODERATE (5-7) Prescribed by: CATY RILEY on 02/19/21 0815 Magnesium Amino Acid Chelate (Magnesium) 100 Mg Tablet, 250 MG PO HS, (Reported) Entered as Reported by: GWENDOLYN HUITRON on 01/09/21 1632 Vit/Iron Fumarate/FA ( Tablet) 1 Each Tablet, 1 EACH PO DAILY, (Reported) Entered as Reported by: GWENDOLYN HUITRON on 01/09/21 1631 Sertraline HCl (Zoloft) 50 Mg Tablet, 50 MG PO, (Reported) Entered as Reported by: YASMIN RIOS on 01/13/20 0450 Review of Systems Review of Systems Constitutional: No chills, No diaphoresis EENTM: No ear discharge, No ear pain Respiratory: cough; No phlegm, No short of breath Cardiovascular: No edema, No palpitations Gastrointestinal: No abdominal pain, No nausea Genitourinary: No discharge, No dysuria All Other Systems Reviewed Negative Unless Noted: Yes Past Ziwkftg-Hndbcb-Bcymbw Hx Patient Social History Tobacco Use?: No Use of E-Cig and/or Vaping dev: No Immunizations Up To Date Tetanus Booster (TDap): Less than 5yrs PED Vaccines UTD: Yes Seasonal Allergies Seasonal Allergies: No Past Medical History Surgeries: Yes (LEFT ANKLE TRIMALLEOLAR FX/ORIF 2017) Orthopedic Respiratory: No Currently Using CPAP: No Currently Using BIPAP: No Cardiac: No Neurological: Yes Headaches /Migraines Last Menstrual Period: Sep 20, 2021 Reproductive Disorders: No Female Reproductive Disorders: Polycystic Ovarian Dis Sexually Transmitted Disease: No HIV/AIDS: No Genitourinary: No Gastrointestinal: No Musculoskeletal: Yes (LEFT ANKLE TRIMALLEOLAR FX/ORIF) Chronic Back Pain, Fractures HEENT: No Loss of Vision: Bilateral Cancer: No Psychosocial: Yes Anxiety, Depression Integumentary: No Blood Disorders: No Adverse Reaction/Blood Tranf: No Family Medical History JOLIE 19 MOTHER Diabetes mellitus 19 MOTHER ENDOMETREAL 19 MOTHER FH: breast cancer in first degree relative Hypercholesterolemia 19 FATHER Hypertension 19 FATHER Malignant neoplasm of endometrium Physical Exam Vital Signs - First Documented 10/02/21 21:51 Temp 36.5 Pulse 86 Resp 18 B/P (MAP) 129/74 (92) Pulse Ox 98 O2 Delivery Room Air Capillary Refill : Less Than 3 Seconds Height: 5'4.00" Weight: 240lbs. 0.0oz. 108.311369dm; 43.00 BMI Method:Stated General Appearance: WD/WN, no apparent distress Eyes: Bilateral Eye Normal Inspection, Bilateral Eye PERRL, Bilateral Eye EOMI HEENT: PERRL/EOMI, TMs normal, pharynx normal, other (Bilateral nasal sinus congestion with clear rhinorrhea. Retropharyngeal without exudate, erythema or swelling.) Neck: full range of motion, supple, normal inspection Respiratory: lungs clear, normal breath sounds, no respiratory distress, no accessory muscle use Cardiovascular: normal peripheral pulses, regular rate, rhythm Extremities: normal inspection, normal capillary refill Neurologic/Psychiatric: alert, normal mood/affect, oriented x 3 Progress/Results/Core Measures Suspected Sepsis SIRS Temperature: Pulse: 86 Respiratory Rate: 18 Blood Pressure 129 /74 Mean: 92 Results/Orders Vital Signs/I&O 10/02/21 21:51 Temp 36.5 Pulse 86 Resp 18 B/P (MAP) 129/74 (92) Pulse Ox 98 O2 Delivery Room Air Capillary Refill : Less Than 3 Seconds Blood Pressure Mean: 92 Progress Note : Time: 22:36 Progress Note The patient declined shot of Toradol, swabs. We discussed with her clear lung sounds and aseptic vital signs but it is unlikely there will be a bacterial pneumonia. 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 We have recommended NSAIDs, conservative therapy and patient is okay with this plan. She does not need blood work. EKG is unremarkable. We will give her some Tessalon Perles. ECG Initial ECG Impression Date: Oct 02, 2021 Initial ECG Impression Time: 21:55 Initial ECG Rate: 86 Initial ECG Rhythm: Normal Sinus Initial ECG Intervals: Normal Initial ECG Impression: Normal Comment Normal sinus rhythm without clinically relevant ST elevation or depression Departure Impression Primary Impression: Viral upper respiratory tract infection with cough Disposition: HOME, SELF-CARE Condition: Stable Departure-Patient Inst. Decision time for Depature: 22:38 Referrals: [facility] (PCP/Family) Primary Care Physician Patient Instructions: Cough, Runny Nose, and the Common Cold, Viral Syndrome (DC) Add. Discharge Instructions: I suspect you have a viral syndrome causing an upper respiratory tract infection. Typically these last about 7 to 10 days at the most. If you not seeing improvement in 7 to 10 days then you can follow-up with your primary care doctor or an urgent care. If you are having difficulty breathing, significantly worsening symptoms or other worrisome concerns then return to the ER for further evaluation. Vapor rubs such as Vicks or Mentholatum along with humidifiers can help with your congestion and cough. Wwvx-jvu-ejuwvie cough medicines. Tessalon Perles 1 to 2 capsules every 6 hours as necessary for cough. Drink lots of fluids to help move your mucus easier. Nasal decongestant such as chlorpheniramine, Sudafed etc. Tylenol and Motrin as necessary for body aches. Salt water gargles and Chloraseptic sprays for sore throat. All discharge instructions reviewed with patient and/or family. Voiced understanding. Scripts Benzonatate (TESSALON PERLES) 100 Mg Capsule 100-200 MG PO Q6H PRN for COUGH, #30 CAP 0 Refills Prov: RODRIGUEZ CACERES 10/02/21 RODRIGUEZ CACERES Oct 02, 2021 22:40
[2021-10-02 22:47] VITALS: BP 129/74
== END 2021-10-02 22:45 | disposition home or self-care (01) ==
LOC: EDUNIT# 21:21 → ER 21:24
DX: J06.9 Acute upper respiratory infection, unspecified (principal); F41.9 Anxiety disorder, unspecified; F32.9 Major depressive disorder, single episode, unspecified; Z79.899 Other long term (current) drug therapy
CPT/HCPCS: 93005

== ENCOUNTER 2021-11-17 11:31 | Emergency (ER) | payer MEDICAID ==
[~2021-11-17] VITALS: Ht 162 cm; Wt 112.6 kg
[~2021-11-17 11:31] MED LIST changes: +BENZ100C18 PO
--- NOTE | 2021-11-17 12:03 | ED Lower Extremity ---
General Stated Complaint: LEFT FOOT INJURY Source: patient History of Present Illness Date Seen by Provider: Nov 17, 2021 Time Seen by Provider: 11:56 Initial Comments PT ARRIVES VIA POV FROM HOME, WANTS WHEELCHAIR ON ARRIVAL PT STATES AT 10 AM TODAY, SHE WAS TRYING TO JUMP OVER SOMETHING, AND TRIPPED AND TWISTED HER LEFT FOOT/ANKLE AREA WAS BAREFOOT AT THE TIME NO OTHER INJURIES FROM THE INCIDENT NO PARESTHESIAS OR MOTOR DEFICITS, BUT CANNOT BEAR WEIGHT ON LEFT FOOT PT HAS HAD PRIOR FX AND SURGICAL REPAIR WITH HARDWARE IN LEFT ANKLE LMP 1 WEEK AGO. NORMAL. ON OCP'S PT HAS NOT HAD COVID-19 VACCINE PCP: DR. RILEY AT [facility] Allergies and Home Medications Allergies Coded Allergies: bupropion (Verified Allergy, Severe, SEIZURE, 11/21/19) naltrexone (Verified Allergy, Severe, SEIZURE, 11/21/19) sulfamethoxazole (Verified Allergy, Intermediate, NAUSEA, 10/01/16) NAUSEA/VOMITING trimethoprim (Verified Allergy, Intermediate, NAUSEA, 10/01/16) NAUSEA/VOMITING Patient Home Medication List Home Medication List Reviewed: Yes Benzonatate (Tessalon Perles) 100 Mg Capsule, 100-200 MG PO Q6H PRN for COUGH Prescribed by: RODRIGUEZ CACERES on 10/02/21 2240 Ferrous Sulfate (Ferrous Sulfate) 325 Mg Tablet, 325 MG PO DAILY Prescribed by: CATY RILEY on 02/19/21 0815 Ibuprofen (Ibu) 600 Mg Tablet, 600 MG PO Q6HR PRN for PAIN-MODERATE (5-7) Prescribed by: CATY RILEY on 02/19/21 0815 Magnesium Amino Acid Chelate (Magnesium) 100 Mg Tablet, 250 MG PO HS, (Reported) Entered as Reported by: GWENDOLYN HUITRON on 01/09/21 1632 Naproxen (Naproxen) 500 Mg Tablet., 500 MG PO BID Prescribed by: MICHELL BELL on 11/17/21 1248 Vit/Iron Fumarate/FA ( Tablet) 1 Each Tablet, 1 EACH PO DAILY, (Reported) Entered as Reported by: GWENDOLYN HUITRON on 01/09/21 1631 Sertraline HCl (Zoloft) 50 Mg Tablet, 50 MG PO, (Reported) Entered as Reported by: YASMIN RIOS on 01/13/20 2258 Tramadol HCl (Ultram) 50 Mg Tablet, 50 MG PO Q4H Prescribed by: MICHELL BELL on 11/17/21 1249 Review of Systems Constitutional: no symptoms reported LMP: Nov 07, 2021 Control/STD Prophylaxis: BC Pills Musculoskeletal: see HPI Skin: no symptoms reported Psychiatric/Neurological: No Symptoms Reported Past Uwzwndi-Mhjujq-Aiclvv Hx Patient Social History Tobacco Use?: No Substance use?: No Alcohol Use?: Yes Alcohol Frequency: Once in a while Immunizations Up To Date Tetanus Booster (TDap): Less than 5yrs PED Vaccines UTD: Yes First/Initial COVID19 Vaccinat: na Seasonal Allergies Seasonal Allergies: No Past Medical History Surgeries: Yes (LEFT ANKLE TRIMALLEOLAR FX/ORIF 2017) Orthopedic Respiratory: No Currently Using CPAP: No Currently Using BIPAP: No Cardiac: No Neurological: Yes Headaches /Migraines : No Reproductive Disorders: Yes Female Reproductive Disorders: Polycystic Ovarian Dis Sexually Transmitted Disease: No HIV/AIDS: No Genitourinary: No Gastrointestinal: No Musculoskeletal: Yes (LEFT ANKLE TRIMALLEOLAR FX/ORIF) Chronic Back Pain, Fractures HEENT: No Loss of Vision: Bilateral Cancer: No Psychosocial: Yes Anxiety, Depression Integumentary: No Blood Disorders: No Adverse Reaction/Blood Tranf: No Family Medical History JOLIE 19 MOTHER Diabetes mellitus 19 MOTHER ENDOMETREAL 19 MOTHER FH: breast cancer in first degree relative Hypercholesterolemia 19 FATHER Hypertension 19 FATHER Malignant neoplasm of endometrium Physical Exam Vital Signs Vital Signs - First Documented 11/17/21 11:53 Temp 35.0 Pulse 85 Resp 18 B/P (MAP) 126/91 (103) Pulse Ox 8 Capillary Refill : Height, Weight, BMI Height: 5'4.00" Weight: 240lbs. 0.0oz. [id number]; 43.00 BMI Method:Stated General Appearance: WD/WN, no apparent distress, obese, other (WILL NOT BEAR WEIGHT ON LEFT FOOT ON ARRIVAL) Ankles: left ankle other (TENDERNESS AND SWELLING AND LIMITED ROM TO AREA JUST DISTAL TO LATERAL MALLEOLUS) Feet: left foot other (TENDERNESS, SWELLING AND LIMITED ROM TO PROXIMAL LATERAL FOOT. 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 as tested, no motor/sensory deficits, alert, normal mood/affect, oriented x 3 Skin: normal color, warm/dry Procedures/Interventions Splinting and Joint Reduction : Jordan wrap: Yes Immobilizers: Step Light Walker s/m/lg Ordered: Crutches Progress/Results/Core Measures Results/Orders My Orders Orders - MICHELL BELL DO Foot, Left, 3 Views (11/17/21 11:59) Ankle, Left, 3 Views (11/17/21 11:59) Rx-Naproxen (Rx-Naprosyn) (11/17/21 12:49) Rx-Tramadol Hcl (Rx-Ultram) (11/17/21 12:49) Jordan Bandage (11/17/21 12:49) Crutches (11/17/21 12:49) Steplite (11/17/21 12:49) Vital Signs/I&O 11/17/21 11/17/21 11:53 13:16 Temp 35.0 35.0 Pulse 85 85 Resp 18 18 B/P (MAP) 126/91 (103) 126/91 Pulse Ox 8 8 Diagnostic Imaging Comments XRAYS LEFT FOOT AND ANKLE--SOFT TISSUE SWELLING, HARDWARE IN PLACE, NO ACUTE BONY INJURY--PER RADIOLOGIST REPORTS AT 1244 Reviewed: Reviewed by Me Departure Impression Primary Impression: LEFT FOOT AND ANKLE SPRAIN Disposition: HOME, SELF-CARE Condition: Stable Departure-Patient Inst. Decision time for Depature: 12:45 Referrals: [facility] (PCP/Family) Primary Care Physician Patient Instructions: Ankle Sprain (DC), Going Up and Down Curbs or Stairs With a Walker or Crutches, How to Use Crutches, How to Use an Elastic Bandage, Walking Boot Add. Discharge Instructions: ICE TO AREA AT 20 MINUTE INTERVALS JORDAN WRAP, BOOT, AND CRUTCHES AT ALL TIMES ELEVATE FOOT MUCH POSSIBLE FOLLOW UP WITH [facility] NEXT WEEK FOR FURTHER CARE Scripts Tramadol HCl (Ultram) 50 Mg Tablet 50 MG PO Q4H for Pain, #20 TAB Prov: MICHELL BELL DO 11/17/21 Naproxen (Naproxen) 500 Mg Tablet. 500 MG PO BID, #20 TAB Prov: MICHELL BELL DO 11/17/21 MICHELL BELL DO Nov 17, 2021 12:03
--- NOTE | 2021-11-17 12:41 | Diagnostic Imaging Report ---
INDICATION: Left ankle pain COMPARISON: Imaging from the same date as well as from 11/21/2019 TECHNIQUE: 3 radiographs of the left ankle dated 11/17/2021. FINDINGS: Lateral plate and screw fixation of the distal fibula is again noted without hardware complication. 2 screws transfixing the medial malleolus are again noted, without evidence of hardware complication. 2 syndesmotic screws are partially visualized, and stable from the prior exam. No acute fracture or dislocation. No obstructive osseous process. The talar dome is unremarkable. Ankle mortise is symmetric. Mild soft tissue swelling, particularly medially. IMPRESSION: Postsurgical changes associated with the ankle without evidence of acute osseous abnormality or hardware complication. Mild soft tissue swelling about the ankle, particularly medially. Dictated by: Dictated on workstation # [id number]
--- NOTE | 2021-11-17 12:42 | Diagnostic Imaging Report ---
INDICATION: Left foot pain. Twisted ankle. FINDINGS: There are operative changes of previous bimalleolar ORIF of the ankle. There are screw fragments related to previous syndesmotic screws. Alignment of the foot appears appropriate. There are no findings of a foot fracture. IMPRESSION: 1. Prior surgical changes at the ankle. No acute foot fracture or malalignment. Dictated by: Dictated on workstation # [id number]
[2021-11-17] MEDS ORDERED: NAPR500T8 PO (12:48)
[2021-11-17] MEDS ORDERED: TRAM-42 PO (12:48)
[2021-11-17] MEDS ORDERED: RX-NAPROXEN (NAPROSYN) 250 MG TAB PPK#4 PO STA (12:49)
[2021-11-17 13:16] VITALS: BP 126/91
== END 2021-11-17 13:17 | disposition home or self-care (01) ==
LOC: EDUNIT# 11:31 → ER 11:33
DX: S93.402A Sprain of unspecified ligament of left ankle, initial encounter (principal); S93.602A Unspecified sprain of left foot, initial encounter; F41.9 Anxiety disorder, unspecified; F32.9 Major depressive disorder, single episode, unspecified; G43.909 Migraine, unspecified, not intractable, without status migrainosus; Z79.899 Other long term (current) drug therapy; Z88.5 Allergy status to narcotic agent; Z88.8 Allergy status to other drugs, medicaments and biological substances; X50.1XXA Overexertion from prolonged static or awkward postures, initial encounter
CPT/HCPCS: 73610; 73630; 99283; L2114

== ENCOUNTER 2022-03-07 20:14 | Emergency (ER) | payer MEDICAID ==
[~2022-03-07] VITALS: Ht 162.5 cm; Wt 99.7 kg
[~2022-03-07 20:14] MED LIST changes: +NAPR500T8 PO
--- NOTE | 2022-03-07 20:34 | ED Head Injury ---
General Chief Complaint: Trauma-Non Activation Stated Complaint: FELL HIT HEAD Source: patient Exam Limitations: no limitations History of Present Illness Date Seen by Provider: Mar 07, 2022 Time Seen by Provider: 20:33 Initial Comments Patient is a 31-year-old female presents ED head injury and left ankle pain. She states last night her left ankle gave out and she fell backwards hitting the top part of her head on the kitchen counter. No loss conscious. This occurred around 10:00. She reports worsening head pain described as throbbing and increased. Nausea without vomiting. She reports seen bright lights in her vision. History of concussion but states this feels different. Denies of any vomiting, visual loss, neck pain, dizziness, chest pain, shortness of breath. She states she has a history of left ankle fracture and felt a sharp shooting pain into her leg that resulted in her to fall. She is concerned that the hardware in her left ankle is loose. Denies any redness or swelling or bruising to the left ankle. Has been able to walk. She took Tylenol at home for head pain without much improvement. Allergies and Home Medications Allergies Coded Allergies: bupropion (Verified Allergy, Severe, SEIZURE, 11/21/19) naltrexone (Verified Allergy, Severe, SEIZURE, 11/21/19) sulfamethoxazole (Verified Allergy, Intermediate, NAUSEA, 10/01/16) NAUSEA/VOMITING trimethoprim (Verified Allergy, Intermediate, NAUSEA, 10/01/16) NAUSEA/VOMITING Patient Home Medication List Home Medication List Reviewed: Yes Benzonatate (Tessalon Perles) 100 Mg Capsule, 100-200 MG PO Q6H PRN for COUGH Prescribed by: RODRIGUEZ CACERES on 10/02/21 2240 Ferrous Sulfate (Ferrous Sulfate) 325 Mg Tablet, 325 MG PO DAILY Prescribed by: CATY RILEY on 02/19/21 0815 Ibuprofen (Ibu) 600 Mg Tablet, 600 MG PO Q6HR PRN for PAIN-MODERATE (5-7) Prescribed by: CATY RILEY on 02/19/21 0815 Ibuprofen (Ibuprofen) 800 Mg Tablet, 800 MG PO Q8H PRN for PAIN Prescribed by: NIKOLAI HIGGINBOTHAM on 03/07/22 2103 Magnesium Amino Acid Chelate (Magnesium) 100 Mg Tablet, 250 MG PO HS, (Reported) Entered as Reported by: GWENDOLYN HUITRON on 01/09/21 1632 Naproxen (Naproxen) 500 Mg Tablet.dr, 500 MG PO BID Prescribed by: MICHELL BELL on 11/17/21 1248 Vit/Iron Fumarate/FA ( Tablet) 1 Each Tablet, 1 EACH PO DAILY, (Reported) Entered as Reported by: GWENDOLYN HUITRON on 01/09/21 1631 Sertraline HCl (Zoloft) 50 Mg Tablet, 50 MG PO, (Reported) Entered as Reported by: YASMIN RIOS on 01/13/20 2258 Tramadol HCl (Ultram) 50 Mg Tablet, 50 MG PO Q4H Prescribed by: MICHELL BELL on 11/17/21 1249 Review of Systems Review of Systems Constitutional: No chills, No diaphoresis, No malaise, No weakness Eyes: Denies Blurred Vision, Denies Drainage, Denies Decreased Acuity Ears, Nose, Mouth, Throat: denies ear pain, denies ear discharge, denies nose discharge, denies mouth pain, denies throat pain, denies throat swelling Respiratory: No cough, No dyspnea on exertion Cardiovascular: No chest pain Gastrointestinal: No abdominal pain, No diarrhea; nausea; No vomiting Musculoskeletal: joint pain, joint swelling Skin: No change in color, No change in hair/nails Psychiatric/Neurological: Denies Cognitive Dysfunction; Headache, Tingling; Denies Weakness Endocrine: Denies Excessive Sweating, Denies Flushing All Other Systems Reviewed Negative Unless Noted: Yes Past Rybcbuv-Anckbo-Ngecco Hx Immunizations Up To Date Tetanus Booster (TDap): Less than 5yrs PED Vaccines UTD: Yes First/Initial COVID19 Vaccinat: na Seasonal Allergies Seasonal Allergies: No Past Medical History Surgeries: Yes (LEFT ANKLE TRIMALLEOLAR FX/ORIF 2018) Orthopedic Respiratory: No Currently Using CPAP: No Currently Using BIPAP: No Cardiac: No Neurological: Yes Headaches /Migraines Reproductive Disorders: Yes Female Reproductive Disorders: Polycystic Ovarian Dis Sexually Transmitted Disease: No HIV/AIDS: No Genitourinary: No Gastrointestinal: No Musculoskeletal: Yes (LEFT ANKLE TRIMALLEOLAR FX/ORIF) Chronic Back Pain, Fractures HEENT: No Loss of Vision: Bilateral Cancer: No Psychosocial: Yes Anxiety, Depression Integumentary: No Blood Disorders: No Adverse Reaction/Blood Tranf: No Family Medical History JOLIE 19 MOTHER Diabetes mellitus 19 MOTHER ENDOMETREAL 19 MOTHER FH: breast cancer in first degree relative Hypercholesterolemia 19 FATHER Hypertension 19 FATHER Malignant neoplasm of endometrium Physical Exam Vital Signs Vital Signs - First Documented 03/07/22 20:25 Temp 37.1 Pulse 100 Resp 22 B/P (MAP) 137/82 (100) Pulse Ox 100 Capillary Refill : Height, Weight, BMI Height: 5'4.00" Weight: 240lbs. 0.0oz. 108.205361in; 42.00 BMI Method:Stated General Appearance: WD/WN, no apparent distress HEENT: PERRL/EOMI, normal ENT inspection, TMs normal, pharynx normal, other (Right sided top of scalp tenderness without crepitus or step-off. Very small contusion.) Neck: non-tender, full range of motion, supple, normal inspection Cardiovascular: regular rate, rhythm, no edema, no gallop, no JVD Respiratory: chest non-tender, lungs clear, normal breath sounds, no respiratory distress, no accessory muscle use Gastrointestinal: normal bowel sounds, non tender, no organomegaly Back: normal inspection, no CVA tenderness Extremities: other (Left lateral ankle tenderness with mild swelling without bruising. Normal active range of motion. No obvious bone deformity. No foot tenderness.) Crainal Nerves: normal hearing, normal speech, PERRL Skin: warm/dry Rafia Coma Score Best Eye Response: (4) Open Spontaneously Best Verbal Response: (5) Oriented Best Motor Response: (6) Obeys Commands Rafia Total: 15 Progress/Results/Core Measures Results/Orders My Orders Orders - ERUM CRAMER Ankle, Left, 3 Views (03/07/22 20:31) Ct Head Wo (03/07/22 20:31) Ibuprofen Tablet (Motrin Tablet) (03/07/22 20:45) Hydrocodone/Apap 7.5/325 Tab (Lortab 7. (03/07/22 20:45) Medications Given in ED Current Medications Medications Dose Ordered Sig/Joo Route Start Time Stop Time Status Last Admin Dose Admin Ibuprofen 800 mg ONCE ONCE PO 03/07/22 20:45 03/07/22 20:46 DC 03/07/22 20:38 800 MG Vital Signs/I&O 03/07/22 20:25 Temp 37.1 Pulse 100 Resp 22 B/P (MAP) 137/82 (100) Pulse Ox 100 Departure Communication (Admissions) CT scan of the head unremarkable. GCS 15. Alert and orient x3. She does have a very small contusion. No cervical midline tenderness. X-ray of the left foot negative for acute fracture. Has been able to stand and bear weight. Due to the reoccurring pain in her left ankle post surgery with sharp shooting pain into her leg recommend orthopedic outpatient follow-up. Jordan wrap, ice. Provided instructions for at home to manage concussion. Follow-up with PCP in 2 to 3 days for reevaluation. Anti-inflammatories for pain and headache. Return precautions were discussed with patient. Provided work note. Provided orthopedic follow-up for this left ankle as she has been having issues post surgery. She had placement of hardware 2017. Tendon likely snapping across the hardware resulting in her pain Impression Primary Impression: Concussion Additional Impression: Ankle pain Disposition: HOME, SELF-CARE Condition: Stable Departure-Patient Inst. Decision time for Depature: 20:38 Referrals: CATY RILEY MD (PCP/Family) Primary Care Physician YUAN DELEON MD Patient Instructions: Concussion in Adults Scripts Ibuprofen (Ibuprofen) 800 Mg Tablet 800 MG PO Q8H PRN for PAIN, #15 TAB Prov: ERUM CRAMER 03/07/22 Work/School Note: Work Release Form Date Seen in the Emergency Department: Mar 07, 2022 Return to Work: Mar 10, 2022 ERUM CRAMER Mar 07, 2022 20:34
[2022-03-07] MEDS ORDERED: HYDROcodone/APAP 7.5 MG/325 MG (LORTAB, LORCET PLUS) TABLET PO ONE (20:45)
[2022-03-07] MEDS ORDERED: IBUPROFEN 800 MG (MOTRIN) TAB PO ONE (20:45)
--- NOTE | 2022-03-07 20:51 | Diagnostic Imaging Report ---
INDICATION: Fall, prior ankle fracture. COMPARISON: 11/17/2021. EXAMINATION: Three views of the left ankle. FINDINGS: Stable orthopedic hardware. The ankle mortise is intact. There is no acute fracture. No osseous lesion or foreign body. IMPRESSION: Stable ORIF of the left ankle. No fracture or hardware loosening identified. Dictated by: Dictated on workstation # [id number]
--- NOTE | 2022-03-07 20:52 | Diagnostic Imaging Report ---
PROCEDURE: CT head without contrast. TECHNIQUE: Multiple contiguous axial images were obtained through the brain without the use of intravenous contrast. Auto Exposure Controls were utilized during the CT exam to meet ALARA standards for radiation dose reduction. INDICATION: Fall, head injury. COMPARISON: 01/06/2018. FINDINGS: Ventricles are normal in size, shape and position. There is no midline shift or mass effect. There is no hemorrhage or evidence of acute ischemia. No extra-axial fluid collection or mass is identified. There is no skull fracture. There is minimal mucosal thickening in the left maxillary sinus. The mastoids are clear. IMPRESSION: Negative CT head. Dictated by: Dictated on workstation # [id number]
[2022-03-07] MEDS ORDERED: IBUP-1780 PO (21:03)
[2022-03-07 21:10] VITALS: BP 150/98
== END 2022-03-07 21:10 | disposition home or self-care (01) ==
LOC: EDUNIT# 20:14 → ER 20:18
DX: S06.0X0A Concussion without loss of consciousness, initial encounter (principal); M25.572 Pain in left ankle and joints of left foot; R40.2410 Glasgow coma scale score 13-15, unspecified time; W22.8XXA Striking against or struck by other objects, initial encounter
CPT/HCPCS: 70450; 73610

== ENCOUNTER 2022-07-26 20:16 | Emergency (ER) | payer MEDICAID ==
[~2022-07-26] VITALS: Ht 162.6 cm; Wt 108.9 kg
[~2022-07-26 20:16] MED LIST changes: +IBUP-1780 PO
--- NOTE | 2022-07-26 20:50 | ED General ---
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 STATES SHE CALLED HER FATHER, WHO TOLD HER TO COME HERE STATES SHE HAS HAD A HEADACHE ALL DAY, BUT IT GOT MUCH WORSE TONIGHT WHEN THESE SYMPTOMS BEGAN. HAS NOT TAKEN ANYTHING FOR HER HEADACHE AT ANY TIME. HAS FREQUENT HEADACHES CHRONICALLY. NO FEVER NO NECK PAIN OR STIFFNESS NO COUGH/URI SYMPTOMS NO GI SYMPTOMS NO VISION CHANGES NO PARESTHESIAS OR MOTOR DEFICITS NO RECENT ILLNESS PT IS NOT COVID VACCINATED. LMP--1 WEEK AGO, NORMAL. NO CONTROL PCP: DR. RILEY AT [facility] Allergies and Home Medications Allergies Coded Allergies: bupropion (Verified Allergy, Severe, SEIZURE, 11/21/19) naltrexone (Verified Allergy, Severe, SEIZURE, 11/21/19) sulfamethoxazole (Verified Allergy, Intermediate, NAUSEA, 10/01/16) NAUSEA/VOMITING trimethoprim (Verified Allergy, Intermediate, NAUSEA, 10/01/16) NAUSEA/VOMITING Patient Home Medication List Home Medication List Reviewed: Yes Benzonatate (Tessalon Perles) 100 Mg Capsule, 100-200 MG PO Q6H PRN for COUGH Prescribed by: RODRIGUEZ CACERES on 10/02/21 2240 Ferrous Sulfate (Ferrous Sulfate) 325 Mg Tablet, 325 MG PO DAILY Prescribed by: CATY RILEY on 02/19/21 0815 Ibuprofen (Ibu) 600 Mg Tablet, 600 MG PO Q6HR PRN for PAIN-MODERATE (5-7) Prescribed by: CATY RILEY on 02/19/21 0815 Ibuprofen (Ibuprofen) 800 Mg Tablet, 800 MG PO Q8H PRN for PAIN Prescribed by: NIKOLAI HIGGINBOTHAM on 03/07/22 2103 Magnesium Amino Acid Chelate (Magnesium) 100 Mg Tablet, 250 MG PO HS, (Reported) Entered as Reported by: GWENDOLYN HUITRON on 01/09/21 1632 Naproxen (Naproxen) 500 Mg Tablet.dr, 500 MG PO BID Prescribed by: MICHELL BELL on 11/17/21 1248 Vit/Iron Fumarate/FA ( Tablet) 1 Each Tablet, 1 EACH PO DAILY, (Reported) Entered as Reported by: GWENDOLYN HUITRON on 01/09/21 1631 Sertraline HCl (Zoloft) 50 Mg Tablet, 50 MG PO, (Reported) Entered as Reported by: YASMIN RIOS on 01/13/20 225 Tramadol HCl (Ultram) 50 Mg Tablet, 50 MG PO Q4H Prescribed by: MICHELL BELL on 11/17/21 1249 Review of Systems Review of Systems Constitutional: see HPI, dizziness, other (FEELS SHAKEY ON THE INSIDE) EENTM: no symptoms reported Respiratory: no symptoms reported Cardiovascular: no symptoms reported Gastrointestinal: no symptoms reported Genitourinary: no symptoms reported : No LMP: Jul 18, 2022 Musculoskeletal: no symptoms reported Skin: no symptoms reported Psychiatric/Neurological: See HPI, Headache Hematologic/Lymphatic: No Symptoms Reported Immunological/Allergic: no symptoms reported Past Ikibamv-Kopolc-Yxteky Hx Patient Social History Tobacco Use?: No Substance use?: No Alcohol Use?: No Immunizations Up To Date Tetanus Booster (TDap): Less than 5yrs PED Vaccines UTD: Yes First/Initial COVID19 Vaccinat: na Seasonal Allergies Seasonal Allergies: No Past Medical History Surgeries: Yes (LEFT ANKLE TRIMALLEOLAR FX/ORIF 2018) Orthopedic Respiratory: No Currently Using CPAP: No Currently Using BIPAP: No Cardiac: No Neurological: Yes Headaches /Migraines Reproductive Disorders: Yes Female Reproductive Disorders: Ovarian Cyst, Polycystic Ovarian Dis Sexually Transmitted Disease: No HIV/AIDS: No Genitourinary: No Gastrointestinal: No Musculoskeletal: Yes (LEFT ANKLE TRIMALLEOLAR FX/ORIF) Chronic Back Pain, Fractures Endocrine: Yes (OBESITY) HEENT: No Loss of Vision: Bilateral Cancer: No Psychosocial: Yes Anxiety, Depression Integumentary: No Blood Disorders: No Adverse Reaction/Blood Tranf: No Family Medical History JOLIE 19 MOTHER Diabetes mellitus 19 MOTHER ENDOMETREAL 19 MOTHER FH: breast cancer in first degree relative Hypercholesterolemia 19 FATHER Hypertension 19 FATHER Malignant neoplasm of endometrium Physical Exam Vital Signs Vital Signs - First Documented 07/26/22 20:27 Temp 36.6 Pulse 73 Resp 18 B/P (MAP) 137/78 (97) Pulse Ox 99 Capillary Refill : Height, Weight, BMI Height: 5'4.00" Weight: 240lbs. 0.0oz. [id number]; 37.00 BMI Method:Stated General Appearance: No Apparent Distress, WD/WN, Obese, Other (WALKS UPRIGHT AND MOVES WITHOUT DIFFICULTY) HEENT: PERRL/EOMI, Normal ENT Inspection, Other (GLASSES) Neck: Normal Inspection Respiratory: Normal Breath Sounds Cardiovascular: Regular Rate, Rhythm, No Murmur Gastrointestinal: Non Tender, Soft Back: No CVA Tenderness, No Vertebral Tenderness Extremity: Normal Inspection Neurologic/Psychiatric: Alert, Oriented x3, No Motor/Sensory Deficits, Normal Mood/Affect, senior ux developer II-XII Norm as Tested; No Abnormal Cerebellar Tests Skin: Normal Color, Warm/Dry Progress/Results/Core Measures Suspected Sepsis SIRS Temperature: Pulse: Respiratory Rate: Laboratory Tests 07/26/22 20:40: White Blood Count 12.5H Blood Pressure / Mean: Laboratory Tests 07/26/22 20:40: Creatinine 0.95, Platelet Count 353, Total Bilirubin 0.3 Results/Orders Lab Results Laboratory Tests Test 07/26/22 20:40 07/26/22 20:45 07/26/22 21:10 Range/Units White Blood Count 12.5 H 4.3-11.0 10^3/uL Red Blood Count 4.96 3.80-5.11 10^6/uL Hemoglobin 14.5 11.5-16.0 g/dL Hematocrit 43 35-52 % Mean Corpuscular Volume 87 80-99 fL Mean Corpuscular Hemoglobin 29 25-34 pg Mean Corpuscular Hemoglobin Concent 34 32-36 g/dL Red Cell Distribution Width 13.2 10.0-14.5 % Platelet Count 353 130-400 10^3/uL Mean Platelet Volume 10.9 9.0-12.2 fL Immature Granulocyte % (Auto) 0 % Neutrophils (%) (Auto) 71 42-75 % Lymphocytes (%) (Auto) 23 12-44 % Monocytes (%) (Auto) 5 0-12 % Eosinophils (%) (Auto) 1 0-10 % Basophils (%) (Auto) 0 0-10 % Neutrophils # (Auto) 8.8 H 1.8-7.8 10^3/uL Lymphocytes # (Auto) 2.9 1.0-4.0 10^3/uL Monocytes # (Auto) 0.6 0.0-1.0 10^3/uL Eosinophils # (Auto) 0.1 0.0-0.3 10^3/uL Basophils # (Auto) 0.0 0.0-0.1 10^3/uL Immature Granulocyte # (Auto) 0.1 0.0-0.1 10^3/uL Sodium Level 140 135-145 MMOL/L Potassium Level 3.9 3.6-5.0 MMOL/L Chloride Level 104 98-107 MMOL/L Carbon Dioxide Level 19 L 21-32 MMOL/L Anion Gap 17 H 5-14 MMOL/L Blood Urea Nitrogen 12 7-18 MG/DL Creatinine 0.95 0.60-1.30 MG/DL Estimat Glomerular Filtration Rate 83 BUN/Creatinine Ratio 13 Glucose Level 114 H 70-105 MG/DL Calcium Level 9.7 8.5-10.1 MG/DL Corrected Calcium 8.5-10.1 MG/DL Magnesium Level 2.0 1.6-2.4 MG/DL Total Bilirubin 0.3 0.1-1.0 MG/DL Aspartate Amino Transf (AST/SGOT) 18 5-34 U/L Alanine Aminotransferase (ALT/SGPT) 17 0-55 U/L Alkaline Phosphatase 51 40-136 U/L Total Protein 8.4 H 6.4-8.2 GM/DL Albumin 4.7 H 3.2-4.5 GM/DL Urine Color YELLOW Urine Clarity CLEAR Urine pH 5.5 5-9 Urine Specific [place] >=1.030 1.016-1.022 Urine Protein NEGATIVE NEGATIVE Urine Glucose (UA) NEGATIVE NEGATIVE Urine Ketones NEGATIVE NEGATIVE Urine Nitrite NEGATIVE NEGATIVE Urine Bilirubin NEGATIVE NEGATIVE Urine Urobilinogen 0.2 < = 1.0 MG/DL Urine Leukocyte Esterase NEGATIVE NEGATIVE Urine RBC (Auto) 3+ H NEGATIVE Urine RBC NONE /HPF Urine WBC 2-5 /HPF Urine Squamous Epithelial Cells 10-25 H /HPF Urine Crystals NONE /LPF Urine Bacteria FEW H /HPF Urine Casts NONE /LPF Urine Mucus MODERATE H /LPF Urine Culture Indicated NO Urine Opiates Screen NEGATIVE NEGATIVE Urine Oxycodone Screen NEGATIVE NEGATIVE Urine Methadone Screen NEGATIVE NEGATIVE Urine Propoxyphene Screen NEGATIVE NEGATIVE Urine Barbiturates Screen NEGATIVE NEGATIVE Ur Tricyclic Antidepressants Screen NEGATIVE NEGATIVE Urine Phencyclidine Screen NEGATIVE NEGATIVE Urine Amphetamines Screen NEGATIVE NEGATIVE Urine Methamphetamines Screen NEGATIVE NEGATIVE Urine Benzodiazepines Screen NEGATIVE NEGATIVE Urine Cocaine Screen NEGATIVE NEGATIVE Urine Cannabinoids Screen NEGATIVE NEGATIVE Influenza Type A (RT-PCR) Not Detected Not Detecte Influenza Type B (RT-PCR) Not Detected Not Detecte SARS-CoV-2 RNA (RT-PCR) Not Detected Not Detecte My Orders Orders - MICHELL BELL DO Urine Bedside (07/26/22 20:30) Drug Screen Stat (Urine) (07/26/22 20:30) Ua Culture If Indicated (07/26/22 20:30) Ed Iv/Invasive Line Start (07/26/22 21:03) Monitor-Rhythm Ecg Trace Only (07/26/22 21:03) Cbc With Automated Diff (07/26/22 21:03) Comprehensive Metabolic Panel (07/26/22 21:03) Magnesium (07/26/22 21:03) Covid 19 Inhouse Test (07/26/22 21:03) Influenza A And B By Pcr (07/26/22 21:03) Isolation Central Supply Req (07/26/22 21:03) Ed Iv/Invasive Line Start (07/26/22 21:16) Lactated Ringers (Lr 1000 Ml Iv Solution (07/26/22 21:30) Ct Head Wo-R/O Stroke (07/26/22 21:17) Ketorolac Injection (Toradol Injection) (07/26/22 22:00) Medications Given in ED Current Medications Medications Dose Ordered Sig/Joo Route Start Time Stop Time Status Last Admin Dose Admin Ketorolac Tromethamine 30 mg ONCE ONCE IVP 07/26/22 22:00 07/26/22 22:01 DC 07/26/22 22:19 30 MG Lactated Ringer's 1,000 ml @ 0 mls/hr Q0M ONCE IV 07/26/22 21:30 07/26/22 21:31 DC 07/26/22 21:30 0 MLS/HR Vital Signs/I&O 07/26/22 07/26/22 20:27 22:20 Temp 36.6 Pulse 73 59 Resp 18 B/P (MAP) 137/78 (97) 155/88 Pulse Ox 99 100 Capillary Refill : Progress Note : Progress Note UNEVENTFUL ER STAY PT IS TEXTING/PLAYING ON PHONE THROUGHOUT ER STAY GIVEN IV FLUIDS AND TORADOL, SYMPTOMS IMPROVED AT DISMISSAL Diagnostic Imaging Comments CT HEAD--NO ACUTE PROCESS, PER RADIOLOGIST VIA PHONE AT [phone] Reviewed: Reviewed by Me Departure Impression Primary Impression: Headache Additional Impression: TRANSIENT DIZZINESS Disposition: HOME, SELF-CARE Condition: Improved Departure-Patient Inst. Decision time for Depature: 21:56 Referrals: CATY RILEY MD (PCP/Family) Primary Care Physician Patient Instructions: Dizziness, Nonvertigo, (DC), Headache, Adult ED Add. Discharge Instructions: KEEP COOL TYLENOL AND MOTRIN NEEDED FOR PAIN LOTS OF CLEAR LIQUIDS FOLLOW UP WITH [facility] IN 1-2 DAYS IF NO BETTER, RETURN TO ER IF WORSE All discharge instructions reviewed with patient and/or family. Voiced unders tanding. MICHELL BELL DO Jul 26, 2022 20:50
[2022-07-26 20:57] LABS: BILIRUBIN,URINE NEGATIVE (NEGATIVE); CLARITY,URINE CLEAR; COLOR,URINE YELLOW; GLUCOSE, URINE (UA) NEGATIVE (NEGATIVE); KETONES,URINE NEGATIVE (NEGATIVE); LEUKOCYTE ESTERASE ,URINE NEGATIVE (NEGATIVE); NITRITE,URINE NEGATIVE (NEGATIVE); PH,URINE 5.5 (5-9); PROTEIN,URINE NEGATIVE (NEGATIVE)
[2022-07-26 21:08] LABS: BASOPHILS % (AUTO) 0 % (0-10); EOSINOPHILS # (AUTO) 0.1 10^3/uL (0.0-0.3); EOSINOPHILS % (AUTO) 1 % (0-10); HEMATOCRIT 43 % (35-52); HEMOGLOBIN 14.5 g/dL (11.5-16.0); LYMPHOCYTES # (AUTO) 2.9 10^3/uL (1.0-4.0); LYMPHOCYTES % (AUTO) 23 % (12-44); MEAN CORPUSCULAR HEMOGLOBIN 29 pg (25-34); MEAN CORPUSCULAR HGB CONC 34 g/dL (32-36); MEAN CORPUSCULAR VOLUME 87 fL (80-99); MEAN PLATELET VOLUME 10.9 fL (9.0-12.2); MONOCYTES # (AUTO) 0.6 10^3/uL (0.0-1.0); MONOCYTES % (AUTO) 5 % (0-12); NEUTROPHILS # (AUTO) 8.8 10^3/uL (1.8-7.8); NEUTROPHILS % (AUTO) 71 % (42-75); PLATELET COUNT 353 10^3/uL (130-400); WHITE BLOOD COUNT 12.5 10^3/uL (4.3-11.0)
[2022-07-26 21:09] LABS: AMPHETAMINE SCREEN, URINE NEGATIVE (NEGATIVE); BARBITURATE SCREEN URINE NEGATIVE (NEGATIVE); BENZODIAZEPINES SCREEN URINE NEGATIVE (NEGATIVE); CANNABINOID SCREEN, URINE NEGATIVE (NEGATIVE); COCAINE SCREEN URINE NEGATIVE (NEGATIVE); METHADONE STAT NEGATIVE (NEGATIVE); OPIATE SCREEN URINE NEGATIVE (NEGATIVE); OXYCODONE STAT NEGATIVE (NEGATIVE); PROPOXYPHENE STAT NEGATIVE (NEGATIVE); TRICYCLIC ANTIDEPRESSANTS SCRE NEGATIVE (NEGATIVE)
[2022-07-26 21:14] LABS: BACTERIA,URINE FEW /HPF
[2022-07-26 21:21] LABS: ALBUMIN 4.7 GM/DL (3.2-4.5)
[2022-07-26 21:22] LABS: CHLORIDE 104 MMOL/L (98-107); POTASSIUM 3.9 MMOL/L (3.6-5.0); SODIUM 140 MMOL/L (135-145)
[2022-07-26 21:23] LABS: CALCIUM 9.7 MG/DL (8.5-10.1)
[2022-07-26 21:24] LABS: GLUCOSE 114 MG/DL (70-105); TOTAL PROTEIN 8.4 GM/DL (6.4-8.2)
[2022-07-26 21:25] LABS: CARBON DIOXIDE 19 MMOL/L (21-32)
[2022-07-26 21:26] LABS: BILIRUBIN,TOTAL 0.3 MG/DL (0.1-1.0)
[2022-07-26 21:27] LABS: ALKALINE PHOSPHATASE 51 U/L (40-136)
[2022-07-26 21:28] LABS: CREATININE SERUM 0.95 MG/DL (0.60-1.30); GFR ESTIMATED 83
[2022-07-26 21:29] LABS: BUN/CREATININE RATIO 13
[2022-07-26 21:30] LABS: ALANINE AMINOTRANSFERASE 17 U/L (0-55)
[2022-07-26] MEDS ORDERED: LACTATED RINGERS 1,000 ML IV ONE (21:30)
--- NOTE | 2022-07-26 21:49 | Diagnostic Imaging Report ---
Clinical indication: Patient with neuro deficit. Exam: Axial CT scan of the brain without IV contrast with coronal and sagittal reformatted images. Auto Exposure Controls were utilized during the CT exam to meet ALARA standards for radiation dose reduction. Comparison: Head CT without contrast dated 03/07/2022. Findings: There is no evidence of acute cerebral infarct, intracranial hemorrhage or gross mass effect. Stable 8 mm low-density area involving the right basal ganglia region which may represent a prominent perivascular space. The brain parenchymal volume appears appropriate for patient's age. There is normal hernandez-white matter distinction. There is no significant midline shift or herniation. There is no evidence of hydrocephalus. The basal cisterns are unremarkable. The skull, extracranial soft tissue, and orbits are unremarkable. There is mild mucosal thickening involving the left maxillary sinus. Temporal bones show no significant abnormality. Impression: Stable CT scan of the brain with no evidence of acute intracranial process. There is no dense vessel sign. Results of this report were discussed with Dr. Shadia Dietz via the telephone on 07/26/2022 at 2140 hours. Dictated by: Dictated on workstation # [id number]
[2022-07-26] MEDS ORDERED: KETOROLAC 30 MG/ML VIAL IVP ONE (22:00)
[2022-07-26 22:20] VITALS: BP 155/88
== END 2022-07-26 22:25 | disposition home or self-care (01) ==
LOC: EDUNIT# 20:16 → ER 20:19
DX: R51.9 Headache, unspecified (principal); R42 Dizziness and giddiness; E66.9 Obesity, unspecified; Z86.69 Personal history of other diseases of the nervous system and sense organs; Z68.37 Body mass index [BMI] 37.0-37.9, adult; Z20.822 Contact with and (suspected) exposure to COVID-19; Z28.310 Unvaccinated for COVID-19
CPT/HCPCS: 36415; 70450; 80053; 80306; 81000; 83735; 84703; 85025; 87636; 93041

== ENCOUNTER 2023-01-15 18:52 | Emergency (ER) | payer MEDICAID ==
[2023-01-15 20:19] LABS: ALKALINE PHOSPHATASE 51 U/L (40-136); BILIRUBIN,TOTAL 0.2 MG/DL (0.1-1.0); BUN/CREATININE RATIO 9; CALCIUM 9.1 MG/DL (8.5-10.1); CARBON DIOXIDE 24 MMOL/L (21-32); CHLORIDE 107 MMOL/L (98-107); CREATININE SERUM 0.79 MG/DL (0.60-1.30); GFR ESTIMATED 102; GLUCOSE 92 MG/DL (70-105); POTASSIUM 3.6 MMOL/L (3.6-5.0); SODIUM 141 MMOL/L (135-145)
[2023-01-15 20:20] LABS: ALANINE AMINOTRANSFERASE 13 U/L (0-55); ALBUMIN 4.1 GM/DL (3.2-4.5)
--- NOTE | 2023-01-15 20:22 | ED Chest Pain ---
General Chief Complaint: Chest Pain Stated Complaint: CHEST PAIN Source: patient Exam Limitations: no limitations History of Present Illness Date Seen by Provider: Jan 15, 2023 Time Seen by Provider: 19:47 Initial Comments 32 yo F who is otherwise healthy presents for CP. Her 70lb dog was hit by a car and she had to carry him around 1 mile home to get him to the vet. She has had sharp pain in her epigastric region since that time. She denies recent illness. Pain is non radiating with no aggravating or alleviating factors. She does not have a history of high blood pressure high cholesterol or diabetes. He has been afebrile with no recent cough. No unilateral lower extremity pain or swelling. Allergies and Home Medications Allergies Coded Allergies: bupropion (Verified Allergy, Severe, SEIZURE, 11/21/19) naltrexone (Verified Allergy, Severe, SEIZURE, 11/21/19) sulfamethoxazole (Verified Allergy, Intermediate, NAUSEA, 10/01/16) NAUSEA/VOMITING trimethoprim (Verified Allergy, Intermediate, NAUSEA, 10/01/16) NAUSEA/VOMITING Patient Home Medication List Home Medication List Reviewed: Yes Benzonatate (Tessalon Perles) 100 Mg Capsule, 100-200 MG PO Q6H PRN for COUGH Prescribed by: RODRIGUEZ CACERES on 10/02/21 2240 Ferrous Sulfate (Ferrous Sulfate) 325 Mg Tablet, 325 MG PO DAILY Prescribed by: CATY RILEY on 02/19/21 0815 Ibuprofen (Ibu) 600 Mg Tablet, 600 MG PO Q6HR PRN for PAIN-MODERATE (5-7) Prescribed by: CATY RILEY on 02/19/21 0815 Ibuprofen (Ibuprofen) 800 Mg Tablet, 800 MG PO Q8H PRN for PAIN Prescribed by: NIKOLAI HIGGINBOTHAM on 03/07/22 2103 Magnesium Amino Acid Chelate (Magnesium) 100 Mg Tablet, 250 MG PO HS, (Reported) Entered as Reported by: GWENDOLYN HUITRON on 01/09/21 1632 Naproxen (Naproxen) 500 Mg Tablet.dr, 500 MG PO BID Prescribed by: MICHELL BELL on 11/17/21 1248 Vit/Iron Fumarate/FA ( Tablet) 1 Each Tablet, 1 EACH PO DAILY, (Reported) Entered as Reported by: GWENDOLYN HUITRON on 01/09/21 1631 Sertraline HCl (Zoloft) 50 Mg Tablet, 50 MG PO, (Reported) Entered as Reported by: YASMIN RIOS on 01/13/20 4682 Tramadol HCl (Ultram) 50 Mg Tablet, 50 MG PO Q4H Prescribed by: MICHELL BELL on 11/17/21 1249 Review of Systems Review of Systems Constitutional: no symptoms reported EENTM: No Symptoms Reported Respiratory: No Symptoms Reported Cardiovascular: Chest Pain Gastrointestinal: No Symptoms Reported Genitourinary: No Symptoms Reported Musculoskeletal: no symptoms reported Skin: no symptoms reported Psychiatric/Neurological: No Symptoms Reported Endocrine: No Symptoms Reported Hematologic/Lymphatic: No Symptoms Reported Past Cskfztn-Yzupmf-Zprbmd Hx Patient Social History Tobacco Use?: No Use of E-Cig and/or Vaping dev: No Substance use?: No Alcohol Use?: No Immunizations Up To Date Tetanus Booster (TDap): Less than 5yrs PED Vaccines UTD: Yes First/Initial COVID19 Vaccinat: na Seasonal Allergies Seasonal Allergies: No Past Medical History Surgeries: Yes (LEFT ANKLE TRIMALLEOLAR FX/ORIF 2018) Orthopedic Respiratory: No Currently Using CPAP: No Currently Using BIPAP: No Cardiac: No Neurological: Yes Headaches /Migraines Reproductive Disorders: Yes Female Reproductive Disorders: Ovarian Cyst, Polycystic Ovarian Dis Sexually Transmitted Disease: No HIV/AIDS: No Genitourinary: No Gastrointestinal: No Musculoskeletal: Yes (LEFT ANKLE TRIMALLEOLAR FX/ORIF) Chronic Back Pain, Fractures Endocrine: Yes (OBESITY) HEENT: No Loss of Vision: Bilateral Cancer: No Psychosocial: Yes Anxiety, Depression Integumentary: No Blood Disorders: No Adverse Reaction/Blood Tranf: No Family Medical History Reviewed Nursing Family Hx JOLIE 19 MOTHER Diabetes mellitus 19 MOTHER ENDOMETREAL 19 MOTHER FH: breast cancer in first degree relative Hypercholesterolemia 19 FATHER Hypertension 19 FATHER Malignant neoplasm of endometrium No Pertinent Family Hx Physical Exam Vital Signs Vital Signs - First Documented 01/15/23 19:12 Temp 36.2 Pulse 76 Resp 16 B/P (MAP) 132/84 (100) Capillary Refill : Height, Weight, BMI Height: 5'4.00" Weight: 240lbs. 0.0oz. 108.554038as; 41.00 BMI Method:Stated General Appearance: No Apparent Distress, WD/WN HEENT: Normal ENT Inspection, Pharynx Normal Neck: Full Range of Motion, Normal Inspection, Non Tender, Supple Respiratory: Chest Non Tender, Lungs Clear, Normal Breath Sounds, No Accessory Muscle Use, No Respiratory Distress Cardiovascular: Regular Rate, Rhythm, No Edema, No Gallop, No JVD, No Murmur, Normal Peripheral Pulses Gastrointestinal: Normal Bowel Sounds, No Organomegaly, No Pulsatile Mass, Non Tender, Soft Extremity: Normal Capillary Refill, Normal Inspection, Normal Range of Motion, Non Tender, No Calf Tenderness Neurologic/Psychiatric: Alert, Oriented x3, Normal Mood/Affect Skin: Normal Color, Warm/Dry Progress/Results/Core Measures Results/Orders Lab Results Laboratory Tests Test 01/15/23 19:33 Range/Units White Blood Count 10.9 4.3-11.0 10^3/uL Red Blood Count 4.64 3.80-5.11 10^6/uL Hemoglobin 13.5 11.5-16.0 g/dL Hematocrit 41 35-52 % Mean Corpuscular Volume 88 80-99 fL Mean Corpuscular Hemoglobin 29 25-34 pg Mean Corpuscular Hemoglobin Concent 33 32-36 g/dL Red Cell Distribution Width 13.2 10.0-14.5 % Platelet Count 316 130-400 10^3/uL Mean Platelet Volume 10.0 9.0-12.2 fL Immature Granulocyte % (Auto) 0 % Neutrophils (%) (Auto) 65 42-75 % Lymphocytes (%) (Auto) 27 12-44 % Monocytes (%) (Auto) 7 0-12 % Eosinophils (%) (Auto) 1 0-10 % Basophils (%) (Auto) 0 0-10 % Neutrophils # (Auto) 7.0 1.8-7.8 10^3/uL Lymphocytes # (Auto) 2.9 1.0-4.0 10^3/uL Monocytes # (Auto) 0.8 0.0-1.0 10^3/uL Eosinophils # (Auto) 0.1 0.0-0.3 10^3/uL Basophils # (Auto) 0.0 0.0-0.1 10^3/uL Immature Granulocyte # (Auto) 0.0 0.0-0.1 10^3/uL Sodium Level 141 135-145 MMOL/L Potassium Level 3.6 3.6-5.0 MMOL/L Chloride Level 107 98-107 MMOL/L Carbon Dioxide Level 24 21-32 MMOL/L Anion Gap 10 5-14 MMOL/L Blood Urea Nitrogen 7 7-18 MG/DL Creatinine 0.79 0.60-1.30 MG/DL Estimat Glomerular Filtration Rate 102 BUN/Creatinine Ratio 9 Glucose Level 92 70-105 MG/DL Calcium Level 9.1 8.5-10.1 MG/DL Corrected Calcium 9.0 8.5-10.1 MG/DL Total Bilirubin 0.2 0.1-1.0 MG/DL Aspartate Amino Transf (AST/SGOT) 8 5-34 U/L Alanine Aminotransferase (ALT/SGPT) 13 0-55 U/L Alkaline Phosphatase 51 40-136 U/L Troponin I < 0.028 <0.028 NG/ML Total Protein 7.0 6.4-8.2 GM/DL Albumin 4.1 3.2-4.5 GM/DL My Orders Orders - MARCIEYANETH SHAH DO Chest Pa/Lat (2 View) (01/15/23 20:16) Cbc With Automated Diff (01/15/23 19:33) Comprehensive Metabolic Panel (01/15/23 19:33) Troponin I Ayo (01/15/23 19:33) Vital Signs/I&O 01/15/23 19:12 Temp 36.2 Pulse 76 Resp 16 B/P (MAP) 132/84 (100) Comment Sinus rhythm. Normal intervals. Normal axis. No ST or T wave abnormalities. No ectopy. No STEMI. Departure Communication (Admissions) Patient is hemodynamically stable. Heart score is 1. Low overall risk for major adverse cardiac events in the next 30 days. She has reliable primary care follow-up. Troponin is negative. EKG is nonischemic. Chest x-ray is normal on my read. Remainder labs are unremarkable. Discharged in stable condition. Impression Primary Impression: Chest wall pain Disposition: 01 HOME, SELF-CARE Condition: Stable Departure-Patient Inst. Referrals: CATY RILEY MD (PCP/Family) Primary Care Physician Patient Instructions: Chest Pain That Is Not Caused by the Heart (DC) Add. Discharge Instructions: He was seen in the emergency department today for pain in your chest wall. No emergent medical cause is identified. I do not think this is from a heart attack or anything coming from your lungs. Use anti-inflammatory medicine such as Motrin or Aleve as needed for pains. Increase your fluids at home, rest. Return to the emergency department for any severe concerns. Follow-up with your primary doctor for any nonemergent needs All discharge instructions reviewed with patient and/or family. Voiced understanding. YANETH JACK DO Jan 15, 2023 20:22
--- NOTE | 2023-01-15 20:32 | Diagnostic Imaging Report ---
CLINICAL INDICATION: Patient with chest pain. EXAM: Chest x-ray PA and lateral views. COMPARISON: None. FINDINGS: Lungs/pleura: Lungs are clear. There is no pneumothorax. There is no pleural effusion. Mediastinum: Unremarkable. Pulmonary vasculature: Unremarkable. Heart: Unremarkable. Bones/extrathoracic soft tissue: There are small degenerative spurs involving the thoracic spine. IMPRESSION: There is no radiographic evidence of acute cardiopulmonary process. Dictated by: Dictated on workstation # [id number]
[2023-01-15 20:41] LABS: BASOPHILS % (AUTO) 0 % (0-10); EOSINOPHILS # (AUTO) 0.1 10^3/uL (0.0-0.3); EOSINOPHILS % (AUTO) 1 % (0-10); HEMATOCRIT 41 % (35-52); HEMOGLOBIN 13.5 g/dL (11.5-16.0); LYMPHOCYTES # (AUTO) 2.9 10^3/uL (1.0-4.0); LYMPHOCYTES % (AUTO) 27 % (12-44); MEAN CORPUSCULAR HEMOGLOBIN 29 pg (25-34); MEAN CORPUSCULAR HGB CONC 33 g/dL (32-36); MEAN CORPUSCULAR VOLUME 88 fL (80-99); MONOCYTES # (AUTO) 0.8 10^3/uL (0.0-1.0); MONOCYTES % (AUTO) 7 % (0-12); NEUTROPHILS % (AUTO) 65 % (42-75); PLATELET COUNT 316 10^3/uL (130-400); WHITE BLOOD COUNT 10.9 10^3/uL (4.3-11.0)
[2023-01-15 20:58] VITALS: BP 112/59
== END 2023-01-15 20:58 | disposition home or self-care (01) ==
LOC: EDUNIT# 18:52 → ER 18:53
DX: R07.89 Other chest pain (principal)
CPT/HCPCS: 36415; 71046; 80053; 84484; 85025; 93005

== ENCOUNTER 2023-02-03 19:51 | Emergency (ER) | payer MEDICAID ==
[~2023-02-03] VITALS: Ht 162.6 cm; Wt 108.9 kg
[2023-02-03] MEDS ORDERED: predniSONE 20 MG TAB PO ONE (20:30)
[2023-02-03] MEDS ORDERED: RT-ALBUTEROL SULF 2.5 MG/3 ML PRE-MIX VIAL INH ONE (20:30)
--- NOTE | 2023-02-03 20:31 | ED Cough/URI ---
General Chief Complaint: Cough/Cold/Flu Symptoms Stated Complaint: COUGH/SOA/CHEST CONGESTION Nursing Triage Note: PT AMB TO RM W C/O SORE THROAT, SOA, COUGH, AND CP R/T COUGH SX YESTERDAY. PT A&OX4. Source: patient Exam Limitations: no limitations History of Present Illness Date Seen by Provider: Feb 03, 2023 Time Seen by Provider: 20:30 Initial Comments Patient is a 32-year-old female who presents ED for flulike symptoms. Bodyaches chills weakness scratchy throat since yesterday. She reports a wet productive cough with shortness of breath and wheezing with chest tightness Allergies and Home Medications Allergies Coded Allergies: bupropion (Verified Allergy, Severe, SEIZURE, 11/21/19) naltrexone (Verified Allergy, Severe, SEIZURE, 11/21/19) sulfamethoxazole (Verified Allergy, Intermediate, NAUSEA, 10/01/16) NAUSEA/VOMITING trimethoprim (Verified Allergy, Intermediate, NAUSEA, 10/01/16) NAUSEA/VOMITING Patient Home Medication List Home Medication List Reviewed: Yes Albuterol Sulfate (Ventolin Hfa) 1 Puff Puff, 2 PUFF INH Q4H Prescribed by: NIKOLAI HIGGINBOTHAM on 02/03/23 2130 Benzonatate (Tessalon Perles) 100 Mg Capsule, 100-200 MG PO Q6H PRN for COUGH Prescribed by: RODRIGUEZ CACERES on 10/02/21 2240 Ferrous Sulfate (Ferrous Sulfate) 325 Mg Tablet, 325 MG PO DAILY Prescribed by: CATY RILEY on 02/19/21 0815 Ibuprofen (Ibu) 600 Mg Tablet, 600 MG PO Q6HR PRN for PAIN-MODERATE (5-7) Prescribed by: CATY RILEY on 02/19/21 0815 Ibuprofen (Ibuprofen) 800 Mg Tablet, 800 MG PO Q8H PRN for PAIN Prescribed by: NIKOLAI HIGGINBOTHAM on 03/07/22 2103 Magnesium Amino Acid Chelate (Magnesium) 100 Mg Tablet, 250 MG PO HS, (Reported) Entered as Reported by: GWENDOLYN HUITRON on 01/09/21 1632 Naproxen (Naproxen) 500 Mg Tablet.dr, 500 MG PO BID Prescribed by: MICHELL BELL on 11/17/21 1248 Prednisone (Prednisone) 50 Mg Tab, 50 MG PO DAILY Prescribed by: NIKOLAI HIGGINBOTHAM on 02/03/23 2130 Vit/Iron Fumarate/FA ( Tablet) 1 Each Tablet, 1 EACH PO DAILY, (Reported) Entered as Reported by: GWENDOLYN HUITRON on 01/09/21 1631 Sertraline HCl (Zoloft) 50 Mg Tablet, 50 MG PO, (Reported) Entered as Reported by: YASMIN RIOS on 01/13/20 2258 Tramadol HCl (Ultram) 50 Mg Tablet, 50 MG PO Q4H Prescribed by: MICHELL BELL on 11/17/21 1249 Review of Systems Review of Systems Constitutional: chills; No diaphoresis, No fever; malaise, weakness EENTM: No ear pain, No blurred vision, No dental problems, No nose pain, No throat pain, No throat swelling Respiratory: cough; No dyspnea on exertion; wheezing Cardiovascular: No chest pain, No edema Gastrointestinal: No abdominal pain, No diarrhea, No nausea, No vomiting Genitourinary: No decreased output, No discharge, No dysuria, No frequency Musculoskeletal: No back pain, No joint pain, No joint swelling, No muscle pain Psychiatric/Neurological: Denies Anxiety, Denies Depressed All Other Systems Reviewed Negative Unless Noted: Yes Past Lfmrthy-Wnnmer-Werzbj Hx Patient Social History Tobacco Use?: No Use of E-Cig and/or Vaping dev: Yes E-Cig or Vaping type used: Nicotine Use of E-Cig and/or Vaping Kirk: Current Everyday User Substance use?: No Alcohol Use?: No Immunizations Up To Date Tetanus Booster (TDap): Less than 5yrs PED Vaccines UTD: Yes Influenza Vaccine Up-to-Date: Yes; Up-to-Date First/Initial COVID19 Vaccinat: NONE Second COVID19 Vaccination [place]: NONE Third COVID19 Vaccination Date: NONE COVID19 Vaccine Director Of Gift Planning: NONE Seasonal Allergies Seasonal Allergies: No Past Medical History Surgery/Hospitalization HX: DENIES L ANKLE Surgeries: Yes (LEFT ANKLE TRIMALLEOLAR FX/ORIF 2017) Orthopedic Respiratory: No Currently Using CPAP: No Currently Using BIPAP: No Cardiac: No Neurological: Yes Headaches /Migraines Reproductive Disorders: Yes Female Reproductive Disorders: Ovarian Cyst, Polycystic Ovarian Dis Sexually Transmitted Disease: No HIV/AIDS: No Genitourinary: No Gastrointestinal: No Musculoskeletal: Yes (LEFT ANKLE TRIMALLEOLAR FX/ORIF) Chronic Back Pain, Fractures Endocrine: Yes (OBESITY) HEENT: No Loss of Vision: Bilateral Cancer: No Psychosocial: Yes Anxiety, Depression Integumentary: No Blood Disorders: No Adverse Reaction/Blood Tranf: No Family Medical History JOLIE 19 MOTHER Diabetes mellitus 19 MOTHER ENDOMETREAL 19 MOTHER FH: breast cancer in first degree relative Hypercholesterolemia 19 FATHER Hypertension 19 FATHER Malignant neoplasm of endometrium No Pertinent Family Hx Physical Exam Vital Signs - First Documented 02/03/23 02/03/23 19:53 21:17 Temp 36.6 Pulse 87 Resp 20 B/P (MAP) 139/83 (101) Pulse Ox 100 O2 Delivery Room Air O2 Flow Rate 0 FiO2 21 Capillary Refill : Less Than 3 Seconds Height: 5'4.00" Weight: 240lbs. 0.0oz. 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, no motor/sensory deficits, alert, normal mood/affect, oriented x 3 Skin: normal color, warm/dry Progress/Results/Core Measures Suspected Sepsis SIRS Temperature: Pulse: 87 Respiratory Rate: 20 Blood Pressure 139 /83 Mean: 101 Results/Orders Lab Results Laboratory Tests Test 02/03/23 20:07 Range/Units Influenza Type A (RT-PCR) Not Detected Not Detecte Influenza Type B (RT-PCR) Not Detected Not Detecte SARS-CoV-2 RNA (RT-PCR) Not Detected Not Detecte Group A Streptococcus Screen NEGATIVE NEGATIVE My Orders Orders - ERUM CRAMER Covid 19 Inhouse Test (02/03/23 19:58) Influenza A And B By Pcr (02/03/23 19:58) Ekg Tracing (02/03/23 20:05) Rapid Strep A Screen (02/03/23 20:05) Chest 1 View, Ap/Pa Only (02/03/23 20:28) Albuterol Pre-Mix Nebs (Rt) (Proventil (02/03/23 20:30) Svn Small Volume Nebulizer (02/03/23 20:28) Prednisone Tablet (Deltasone Tablet) (02/03/23 20:30) Medications Given in ED Current Medications Medications Dose Ordered Sig/Joo Route Start Time Stop Time Status Last Admin Dose Admin Albuterol Sulfate 2.5 mg ONCE ONCE INH 02/03/23 20:30 02/03/23 20:31 DC 02/03/23 21:16 2.5 MG Prednisone 50 mg ONCE ONCE PO 02/03/23 20:30 02/03/23 20:31 DC 02/03/23 21:13 50 MG Vital Signs/I&O 02/03/23 02/03/23 19:53 21:17 Temp 36.6 Pulse 87 Resp 20 B/P (MAP) 139/83 (101) Pulse Ox 100 98 O2 Delivery Room Air Room Air O2 Flow Rate 0 FiO2 21 Capillary Refill : Less Than 3 Seconds Blood Pressure Mean: 101 ECG Comment Sinus rhythm, 82 bpm, QRS duration 113 MS, QTc 409 MS, Departure Communication (PCP) Patient's presents ED flulike symptoms. Started with scratchy throat that led to cough, wheezing. History of vaping. No history of asthma, COPD, coronary artery disease. EKG was performed initially on arrival she had some chest tightness. EKG showed normal sinus rhythm. No evidence of ST elevation or depression. Nonischemic changes. Similar to her previous EKG on December 2022. Patient vital signs stable. Differential diagnosis of strep throat, viral upper respiratory infection, reactive airway disease. Patient did have very subtle decreased breath sounds. Breathing treatment albuterol was performed with improvement. Patient was given dose of steroid 50mg. Chest x-ray was negative for pneumonia, pneumothorax. COVID influenza was negative and was ordered secondary to upper respiratory symptoms. Patient symptoms appear to be viral. Did have some improvement after the breathing treatment. We will prescribe albuterol inhaler with short burst steroids for concern for reactive airway likely secondary to bronchitis. Continue with conservative treatment at home. Tylenol ibuprofen for symptoms. If any worsening symptoms return back to ED for further evaluation Impression Primary Impression: URI (upper respiratory infection) Disposition: 01 HOME, SELF-CARE Condition: Stable Departure-Patient Inst. Decision time for Depature: 21:06 Referrals: CATY RILEY MD (PCP/Family) Primary Care Physician Patient Instructions: Upper Respiratory Infection ED Scripts Prednisone (Prednisone) 50 Mg Tab 50 MG PO DAILY for 4 Days, #4 TAB Prov: ERUM CRAMER 02/03/23 Albuterol Sulfate (VENTOLIN HFA) 1 Puff Puff 2 PUFF INH Q4H, #1 EA 1 PUFF = 90 MCG Prov: ERUM CRAMER 02/03/23 ERUM CRAMER Feb 03, 2023 20:31
--- NOTE | 2023-02-03 20:46 | Diagnostic Imaging Report ---
CHEST 1 VIEW, AP/PA ONLY Indication: Cough Comparison: 01/15/2023 Findings: No focal airspace disease in the visualized lungs. Hazy opacity over the right lung bases due to summation shadow of normal pulmonary vasculature and patient's breast tissue. No pleural effusion or pneumothorax. Normal cardiomediastinal silhouette. Impression: 1. No acute cardiopulmonary process by portable radiography. Dictated by: Dictated on workstation # [id number]
[2023-02-03] MEDS ORDERED: RT-ALBUINH INH (21:30)
[2023-02-03] MEDS ORDERED: PRD50T PO (21:30)
[2023-02-03 21:35] VITALS: BP 127/87
== END 2023-02-03 21:35 | disposition home or self-care (01) ==
LOC: EDUNIT# 19:51 → ER 19:54
DX: J06.9 Acute upper respiratory infection, unspecified (principal); F17.290 Nicotine dependence, other tobacco product, uncomplicated; E66.9 Obesity, unspecified; Z68.41 Body mass index [BMI] 40.0-44.9, adult; Z28.310 Unvaccinated for COVID-19; Z20.822 Contact with and (suspected) exposure to COVID-19
CPT/HCPCS: 71045; 87430; 87636; 93005; 94640

== ENCOUNTER 2023-02-06 12:54 | Emergency (ER) | payer MEDICAID ==
[~2023-02-06] VITALS: Ht 162 cm; Wt 110.0 kg
[~2023-02-06 12:54] MED LIST changes: +PRD50T PO; +RT-ALBUINH INH
[2023-02-06] MEDS ORDERED: NS IV 1000 ML 1,000 ML IV STA (13:06)
--- NOTE | 2023-02-06 13:09 | ED Cough/URI ---
General Chief Complaint: Cough/Cold/Flu Symptoms Stated Complaint: NAUSEA | CHEST AND SINUS CONGESTION Nursing Triage Note: PT STATES HERE FRIDAY, DX WITH BRONCHITIS, GETTING WORSE, VOMITING SINCE YESTERDAY, COUGHING, DIARRHEA Source: patient Exam Limitations: no limitations History of Present Illness Date Seen by Provider: Feb 06, 2023 Time Seen by Provider: 13:07 Initial Comments Patient is a 32-year-old female presents to ED for worsening chest congestion with associated vomiting and diarrhea. She states symptoms have been ongoing for the past 5 days. She was seen here on February 03 had a negative COVID influenza swab. Was diagnosed of bronchitis with with secondary reactive airway disease. Was given albuterol inhaler and steroids which she has been taking without much improvement. She reports continue chest congestion, chest tightness with flulike symptoms. Associated wet cough with some mild wheezing. She states her son did have strep recently but he has improved. She denies history of asthma, COPD, CHF, heart disease. Denies of any sore throat, ear p ain, headache, fever or urinary symptoms, abdominal pain, dysuria. Allergies and Home Medications Allergies Coded Allergies: bupropion (Verified Allergy, Severe, SEIZURE, 11/21/19) naltrexone (Verified Allergy, Severe, SEIZURE, 11/21/19) sulfamethoxazole (Verified Allergy, Intermediate, NAUSEA, 10/01/16) NAUSEA/VOMITING trimethoprim (Verified Allergy, Intermediate, NAUSEA, 10/01/16) NAUSEA/VOMITING Patient Home Medication List Home Medication List Reviewed: Yes Albuterol Sulfate (Ventolin Hfa) 1 Puff Puff, 2 PUFF INH Q4H Prescribed by: NIKOLAI HIGGINBOTHAM on 02/03/232129 Azithromycin (Azithromycin) 250 Mg Tablet, 250 MG PO UD Prescribed by: NIKOLAI HIGGINBOTHAM on 02/06/23 1404 Benzonatate (Tessalon Perles) 100 Mg Capsule, 100-200 MG PO Q6H PRN for COUGH Prescribed by: RODRIGUEZ CACERES on 10/02/21 2240 Benzonatate (Tessalon Perles) 100 Mg Capsule, 200 MG PO TID Prescribed by: NIKOLAI HIGGINBOTHAM on 02/06/23 1404 Ferrous Sulfate (Ferrous Sulfate) 325 Mg Tablet, 325 MG PO DAILY Prescribed by: CATY RILEY on 02/19/21 0815 Ibuprofen (Ibu) 600 Mg Tablet, 600 MG PO Q6HR PRN for PAIN-MODERATE (5-7) Prescribed by: CATY RILEY on 02/19/21 0815 Ibuprofen (Ibuprofen) 800 Mg Tablet, 800 MG PO Q8H PRN for PAIN Prescribed by: NIKOLAI HIGGINBOTHAM on 03/07/22 2103 Magnesium Amino Acid Chelate (Magnesium) 100 Mg Tablet, 250 MG PO HS, (Reported) Entered as Reported by: GWENDOLYN HUITRON on 01/09/21 1632 Naproxen (Naproxen) 500 Mg Tablet.dr, 500 MG PO BID Prescribed by: MICHELL BELL on 11/17/21 1248 Ondansetron (Ondansetron Odt) 4 Mg Tab.rapdis, 4 MG SL Q4H PRN for NAUSEA/VOMITING Prescribed by: NIKOLAI HIGGINBOTHAM on 02/06/23 1404 Prednisone (Prednisone) 50 Mg Tab, 50 MG PO DAILY Prescribed by: NIKOLAI HIGGINBOTHAM on 02/03/23 2130 Vit/Iron Fumarate/FA ( Tablet) 1 Each Tablet, 1 EACH PO DAILY, (Reported) Entered as Reported by: GWENDOLYN HUITRON on 01/09/21 1631 Sertraline HCl (Zoloft) 50 Mg Tablet, 50 MG PO, (Reported) Entered as Reported by: YASMIN RIOS on 01/13/20 2258 Tramadol HCl (Ultram) 50 Mg Tablet, 50 MG PO Q4H Prescribed by: MICHELL BELL on 11/17/21 1249 Review of Systems Review of Systems Constitutional: chills; No diaphoresis, No fever; malaise, weakness EENTM: No ear pain, No mouth swelling, No throat pain, No throat swelling Respiratory: cough, short of breath Gastrointestinal: No abdominal pain; diarrhea, nausea, vomiting Genitourinary: No decreased output, No discharge, No dysuria, No frequency Musculoskeletal: No back pain, No joint pain Psychiatric/Neurological: Denies Anxiety, Denies Depressed All Other Systems Reviewed Negative Unless Noted: Yes Past Ywpvwlx-Tbghhe-Opexky Hx Immunizations Up To Date Tetanus Booster (TDap): Less than 5yrs PED Vaccines UTD: Yes First/Initial COVID19 Vaccinat: NONE Second COVID19 Vaccination [place]: NONE Third COVID19 Vaccination Date: NONE Seasonal Allergies Seasonal Allergies: No Past Medical History Surgery/Hospitalization HX: DENIES L ANKLE Surgeries: Yes (LEFT ANKLE TRIMALLEOLAR FX/ORIF 2017) Orthopedic Respiratory: No Currently Using CPAP: No Currently Using BIPAP: No Cardiac: No Neurological: Yes Headaches /Migraines Last Menstrual Period: Jan 18, 2023 Reproductive Disorders: Yes Female Reproductive Disorders: Ovarian Cyst, Polycystic Ovarian Dis Sexually Transmitted Disease: No HIV/AIDS: No Genitourinary: No Gastrointestinal: No Musculoskeletal: Yes (LEFT ANKLE TRIMALLEOLAR FX/ORIF) Chronic Back Pain, Fractures Endocrine: Yes (OBESITY) HEENT: No Loss of Vision: Bilateral Cancer: No Psychosocial: Yes Anxiety, Depression Integumentary: No Blood Disorders: No Adverse Reaction/Blood Tranf: No Family Medical History JOLIE 19 MOTHER Diabetes mellitus 19 MOTHER ENDOMETREAL 19 MOTHER FH: breast cancer in first degree relative Hypercholesterolemia 19 FATHER Hypertension 19 FATHER Malignant neoplasm of endometrium No Pertinent Family Hx Physical Exam Vital Signs - First Documented 02/06/23 12:58 Temp 35.7 Pulse 86 Resp 20 B/P (MAP) 140/86 (104) Pulse Ox 99 O2 Delivery Room Air Capillary Refill : Less Than 3 Seconds Height: 5'4.00" Weight: 240lbs. 0.0oz. 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, no motor/sensory deficits, alert, normal mood/affect, oriented x 3 Skin: normal color, warm/dry Progress/Results/Core Measures Suspected Sepsis SIRS Temperature: Pulse: 86 Respiratory Rate: 20 Laboratory Tests 02/06/23 13:15: White Blood Count 10.8 Blood Pressure 140 /86 Mean: 104 Laboratory Tests 02/06/23 13:15: Creatinine 0.81, Platelet Count 280, Total Bilirubin 0.3 Results/Orders Lab Results Laboratory Tests Test 02/06/23 13:15 Range/Units White Blood Count 10.8 4.3-11.0 10^3/uL Red Blood Count 4.94 3.80-5.11 10^6/uL Hemoglobin 14.1 11.5-16.0 g/dL Hematocrit 43 35-52 % Mean Corpuscular Volume 88 80-99 fL Mean Corpuscular Hemoglobin 29 25-34 pg Mean Corpuscular Hemoglobin Concent 33 32-36 g/dL Red Cell Distribution Width 13.7 10.0-14.5 % Platelet Count 280 130-400 10^3/uL Mean Platelet Volume 9.8 9.0-12.2 fL Immature Granulocyte % (Auto) 0 % Neutrophils (%) (Auto) 87 H 42-75 % Lymphocytes (%) (Auto) 10 L 12-44 % Monocytes (%) (Auto) 3 0-12 % Eosinophils (%) (Auto) 0 0-10 % Basophils (%) (Auto) 0 0-10 % Neutrophils # (Auto) 9.4 H 1.8-7.8 10^3/uL Lymphocytes # (Auto) 1.0 1.0-4.0 10^3/uL Monocytes # (Auto) 0.3 0.0-1.0 10^3/uL Eosinophils # (Auto) 0.0 0.0-0.3 10^3/uL Basophils # (Auto) 0.0 0.0-0.1 10^3/uL Immature Granulocyte # (Auto) 0.0 0.0-0.1 10^3/uL Neutrophils % (Manual) 83 % Lymphocytes % (Manual) 9 % Monocytes % (Manual) 3 % Eosinophils % (Manual) 1 % Band Neutrophils 4 % Platelet Estimate OCC LARGE PLT Sodium Level 140 135-145 MMOL/L Potassium Level 3.9 3.6-5.0 MMOL/L Chloride Level 108 H 98-107 MMOL/L Carbon Dioxide Level 21 21-32 MMOL/L Anion Gap 11 5-14 MMOL/L Blood Urea Nitrogen 11 7-18 MG/DL Creatinine 0.81 0.60-1.30 MG/DL Estimat Glomerular Filtration Rate 99 BUN/Creatinine Ratio 14 Glucose Level 129 H 70-105 MG/DL Calcium Level 9.0 8.5-10.1 MG/DL Corrected Calcium 8.6 8.5-10.1 MG/DL Total Bilirubin 0.3 0.1-1.0 MG/DL Aspartate Amino Transf (AST/SGOT) 9 5-34 U/L Alanine Aminotransferase (ALT/SGPT) 17 0-55 U/L Alkaline Phosphatase 48 40-136 U/L C-Reactive Protein High Sensitivity 0.41 0.00-0.50 MG/DL Total Protein 7.6 6.4-8.2 GM/DL Albumin 4.5 3.2-4.5 GM/DL My Orders Orders - ERUM CRAMER PA Cbc With Automated Diff (02/06/23 13:06) Comprehensive Metabolic Panel (02/06/23 13:06) Hs C Reactive Protein (02/06/23 13:06) Chest 1 View, Ap/Pa Only (02/06/23 13:06) Ns Iv 1000 Ml (Sodium Chloride 0.9%) (02/06/23 13:06) Ondansetron Injection (Zofran Injectio (02/06/23 13:15) Manual Differential (02/06/23 13:15) Medications Given in ED Current Medications Medications Dose Ordered Sig/Joo Route Start Time Stop Time Status Last Admin Dose Admin Ondansetron HCl 4 mg ONCE ONCE IVP 02/06/23 13:15 02/06/23 13:16 DC 02/06/23 13:20 4 MG Vital Signs/I&O 02/06/23 02/06/23 12:58 14:08 Temp 35.7 Pulse 86 70 Resp 20 20 B/P (MAP) 140/86 (104) 124/90 Pulse Ox 99 97 O2 Delivery Room Air Room Air Capillary Refill : Less Than 3 Seconds Blood Pressure Mean: 104 Departure Communication (PCP) Reviewed previous ER visits, H&P's, testing. Patient was seen here on February 03 diagnosed with bronchitis. Patient Was discharged with prednisone and albuterol with concern for underlying reactive airway. She denies history of asthma, heart disease. On arrival she reports worsening symptoms with associated vomiting and diarrhea. Not able to eat or drink without vomiting. She describes as more mucus and vomits during the cough. She is requesting fluids as she states she is not able to eat or drink. Differential diagnosis of bronchitis, viral upper respiratory infection, pneumonia. CBC, CMP and chest x- ray was ordered. CBC, CMP was otherwise unremarkable. Chest x-ray was negative for pneumonia, pneumothorax, pleural effusion. She received a liter of fluid with some improvement. She was given Zofran. Able to eat and drink. Due to the worsening symptoms and cough with underlying flulike symptoms patient will be discharged azithromycin for any atypical infection. Tessalon Perles for cough. Continue with albuterol at home. No specific wheezing noted on exam. Improvement of her lung sounds the day. No known cardiac history. She had a negative and COVID influenza swab 3 days ago. No reswab today. Return precaution were discussed with patient Impression Primary Impression: Upper respiratory infection Disposition: HOME, SELF-CARE Condition: Stable Departure-Patient Inst. Decision time for Depature: 14:02 Referrals: CATY RILEY MD (PCP/Family) Primary Care Physician Patient Instructions: Cough, Adult (DC) Scripts Ondansetron (Ondansetron Odt) 4 Mg Tab.rapdis 4 MG SL Q4H PRN for NAUSEA/VOMITING, #4 TAB Prov: ERUM CRAMER 02/06/23 Azithromycin (Azithromycin) 250 Mg Tablet 250 MG PO UD, #6 TAB TAKE 2 TABLETS ON DAY ONE THEN TAKE 1 TABLET DAILY FOR FOUR MORE DAYS Prov: ERUM CRAMER 02/06/23 Benzonatate (TESSALON PERLES) 100 Mg Capsule 200 MG PO TID for Cough, #20 CAP Prov: ERUM CRAMER 02/06/23 REUM CRAMER Feb 06, 2023 13:09
[2023-02-06] MEDS ORDERED: ONDANSETRON 4 MG/2 ML (SDV) Z0FRAN IVP ONE (13:15)
[2023-02-06 13:30] LABS: BASOPHILS % (AUTO) 0 % (0-10); EOSINOPHILS % (AUTO) 0 % (0-10); HEMATOCRIT 43 % (35-52); HEMOGLOBIN 14.1 g/dL (11.5-16.0); LYMPHOCYTES % (AUTO) 10 % (12-44); MEAN CORPUSCULAR HEMOGLOBIN 29 pg (25-34); MEAN CORPUSCULAR HGB CONC 33 g/dL (32-36); MEAN CORPUSCULAR VOLUME 88 fL (80-99); MEAN PLATELET VOLUME 9.8 fL (9.0-12.2); MONOCYTES # (AUTO) 0.3 10^3/uL (0.0-1.0); MONOCYTES % (AUTO) 3 % (0-12); NEUTROPHILS # (AUTO) 9.4 10^3/uL (1.8-7.8); NEUTROPHILS % (AUTO) 87 % (42-75); PLATELET COUNT 280 10^3/uL (130-400); WHITE BLOOD COUNT 10.8 10^3/uL (4.3-11.0)
--- NOTE | 2023-02-06 13:40 | Diagnostic Imaging Report ---
EXAMINATION: Chest radiograph, portable AP view. DATE: 02/06/2023 1:30 PM. INDICATION: 32-year-old female, cough. COMPARISON: February 03, 2023. FINDINGS: The heart size and mediastinal contours are unchanged. There is no identified pneumothorax. There is no large pleural effusion. There is no identified focal airspace consolidation. IMPRESSION: No identified acute cardiopulmonary abnormality. Dictated by: Dictated on workstation # [id number]
[2023-02-06 13:44] LABS: BAND NEUTROPHILS 4 %; EOSINOPHILS % (MANUAL) 1 %; LYMPHOCYTES % (MANUAL) 9 %; MONOCYTES % (MANUAL) 3 %; NEUTROPHILS % (MANUAL) 83 %; PLATELET ESTIMATE OCC LARGE PLT
[2023-02-06 13:45] LABS: ALBUMIN 4.5 GM/DL (3.2-4.5); POTASSIUM 3.9 MMOL/L (3.6-5.0)
[2023-02-06 13:48] LABS: TOTAL PROTEIN 7.6 GM/DL (6.4-8.2)
[2023-02-06 13:49] LABS: BILIRUBIN,TOTAL 0.3 MG/DL (0.1-1.0)
[2023-02-06 13:51] LABS: CREATININE SERUM 0.81 MG/DL (0.60-1.30)
[2023-02-06] MEDS ORDERED: BENZ100C18 PO (14:04)
[2023-02-06] MEDS ORDERED: AZIT250T12 PO (14:04)
[2023-02-06] MEDS ORDERED: ONDA4TAB11 SL (14:04)
[2023-02-06 14:08] VITALS: BP 124/90
== END 2023-02-06 14:08 | disposition home or self-care (01) ==
LOC: EDUNIT# 12:54 → ER 12:56
DX: J06.9 Acute upper respiratory infection, unspecified (principal); R19.7 Diarrhea, unspecified; E66.9 Obesity, unspecified; Z68.41 Body mass index [BMI] 40.0-44.9, adult; Z28.310 Unvaccinated for COVID-19; Z88.2 Allergy status to sulfonamides
CPT/HCPCS: 36415; 71045; 80053; 85007; 85027; 86141

== ENCOUNTER 2023-03-17 05:00 | Emergency (ER) | payer MEDICAID ==
[~2023-03-17] VITALS: Ht 162.6 cm; Wt 108.8 kg
[~2023-03-17 05:00] MED LIST changes: +AZIT250T12 PO; +ONDA4TAB11 SL
[2023-03-17] MEDS ORDERED: IBUPROFEN 800 MG (MOTRIN) TAB PO STA (05:25)
--- NOTE | 2023-03-17 05:33 | ED EENT ---
History of Present Illness General Chief Complaint: Oral/Throat Problems Stated Complaint: SOB,CONGESTION Source: patient Exam Limitations: no limitations History of Present Illness Date Seen by Provider: Mar 17, 2023 Time Seen by Provider: 05:19 Initial Comments Here with 24 hours of sinus congestion, ear pain and sore throat. Denies cough. She has been taking Tylenol and Benadryl and that is not helping a lot although did help some yesterday. Started with right ear pain and notes bilateral. She denies nausea or vomiting. She does present with a fever. She is not vac cinated for COVID or flu. Timing/Duration: gradual Severity: moderate Location: ear (R), ear (L), nose, throat Prearrival Treatment: over the counter meds Associated Symptoms: No cough; fever, sore throat Allergies and Home Medications Allergies Coded Allergies: bupropion (Verified Allergy, Severe, SEIZURE, 11/21/19) naltrexone (Verified Allergy, Severe, SEIZURE, 11/21/19) sulfamethoxazole (Verified Allergy, Intermediate, NAUSEA, 10/01/16) NAUSEA/VOMITING trimethoprim (Verified Allergy, Intermediate, NAUSEA, 10/01/16) NAUSEA/VOMITING Patient Home Medication List Home Medication List Reviewed: Yes Albuterol Sulfate (Ventolin Hfa) 1 Puff Puff, 2 PUFF INH Q4H Prescribed by: NIKOLAI HIGGINBOTHAM on 02/03/232129 Azithromycin (Azithromycin) 250 Mg Tablet, 250 MG PO UD Prescribed by: NIKOLAI HIGGINBOTHAM on 02/06/23 1404 Benzonatate (Tessalon Perles) 100 Mg Capsule, 100-200 MG PO Q6H PRN for COUGH Prescribed by: RODRIGUEZ CACERES on 10/02/21 2240 Benzonatate (Tessalon Perles) 100 Mg Capsule, 200 MG PO TID Prescribed by: NIKOLAI HIGGINBOTHAM on 02/06/23 1404 Ferrous Sulfate (Ferrous Sulfate) 325 Mg Tablet, 325 MG PO DAILY Prescribed by: CATY RILEY on 02/19/21 0815 Ibuprofen (Ibu) 600 Mg Tablet, 600 MG PO Q6HR PRN for PAIN-MODERATE (5-7) Prescribed by: CAYT RILEY on 02/19/21 0815 Ibuprofen (Ibuprofen) 800 Mg Tablet, 800 MG PO Q8H PRN for PAIN Prescribed by: NIKOLAI HIGGINBOTHAM on 03/07/22 2103 Magnesium Amino Acid Chelate (Magnesium) 100 Mg Tablet, 250 MG PO HS, (Reported) Entered as Reported by: GWENDOLYN HUITRON on 01/09/21 1632 Naproxen (Naproxen) 500 Mg Tablet.dr, 500 MG PO BID Prescribed by: MICHELL BELL on 11/17/21 1248 Ondansetron (Ondansetron Odt) 4 Mg Tab.rapdis, 4 MG SL Q4H PRN for NAUSEA/VOMITING Prescribed by: NIKOLAI HIGGINBOTHAM on 02/06/23 1404 Prednisone (Prednisone) 50 Mg Tab, 50 MG PO DAILY Prescribed by: NIKOLAI HIGGINBOTHAM on 02/03/23 2130 Vit/Iron Fumarate/FA ( Tablet) 1 Each Tablet, 1 EACH PO DAILY, (Reported) Entered as Reported by: GWENDOLYN HUITRON on 01/09/21 1631 Sertraline HCl (Zoloft) 50 Mg Tablet, 50 MG PO, (Reported) Entered as Reported by: YASMIN RIOS on 01/13/20 2258 Tramadol HCl (Ultram) 50 Mg Tablet, 50 MG PO Q4H Prescribed by: MICHELL BELL on 11/17/21 1249 Review of Systems Review of Systems Constitutional: see HPI; No chills; fever Eyes: Denies Pain Ears: Pain Throat: pain, swelling; denies muffled; painful swallowing Respiratory: No cough, No short of breath Gastrointestinal: No nausea, No vomiting Musculoskeletal: no symptoms reported Skin: no symptoms reported Past Ktskfvt-Jdxzfk-Lsyntt Hx Patient Social History Tobacco Use?: Yes Tobacco type used: Cigarettes Substance use?: Yes Substance type: Marijuana Alcohol Use?: No Immunizations Up To Date Tetanus Booster (TDap): Less than 5yrs PED Vaccines UTD: Yes First/Initial COVID19 Vaccinat: NONE Second COVID19 Vaccination Irving: NONE Third COVID19 Vaccination Date: NONE Seasonal Allergies Seasonal Allergies: No Past Medical History Surgery/Hospitalization HX: L ANKLE SURGERY Surgeries: Yes (LEFT ANKLE TRIMALLEOLAR FX/ORIF 2018) Orthopedic Respiratory: No Currently Using CPAP: No Currently Using BIPAP: No Cardiac: No Neurological: Yes Headaches /Migraines Reproductive Disorders: Yes Female Reproductive Disorders: Ovarian Cyst, Polycystic Ovarian Dis Sexually Transmitted Disease: No HIV/AIDS: No Genitourinary: No Gastrointestinal: No Musculoskeletal: Yes (LEFT ANKLE TRIMALLEOLAR FX/ORIF) Chronic Back Pain, Fractures Endocrine: Yes (OBESITY) HEENT: No Loss of Vision: Bilateral Cancer: No Psychosocial: Yes Anxiety, Depression Integumentary: No Blood Disorders: No Adverse Reaction/Blood Tranf: No Family Medical History Reviewed Nursing Family Hx JOLIE 19 MOTHER Diabetes mellitus 19 MOTHER ENDOMETREAL 19 MOTHER FH: breast cancer in first degree relative Hypercholesterolemia 19 FATHER Hypertension 19 FATHER Malignant neoplasm of endometrium Physical Exam Vital Signs Vital Signs - First Documented 03/17/23 05:10 Temp 37.8 Pulse 102 Resp 16 B/P (MAP) 122/71 (88) Pulse Ox 97 O2 Delivery Room Air Height, Weight, BMI Height: 5'4.00" Weight: 240lbs. 0.0oz. [id number]; 41.00 BMI Method:Stated General Appearance: WD/WN, no apparent distress Eyes: bilateral eye normal inspection, bilateral eye PERRL, bilateral eye EOMI Ears: bilateral ear auricle normal, bilateral ear canal normal, bilateral ear TM bulging, bilateral ear other (TMs without opacity or erythema) Nose: other (Nasal congestion with clear rhinorrhea) Mouth/Throat: pharynx swelling, tonsillar exudate Neck: full range of motion, supple Cardiovascular: regular rate, rhythm, no murmur Respiratory: lungs clear, normal breath sounds Neurologic/Psychiatric: alert, oriented x 3 Skin: normal color, warm/dry Progress/Results/Core Measures Results/Orders Lab Results Laboratory Tests Test 03/17/23 05:27 Range/Units Group A Streptococcus Screen POSITIVE H NEGATIVE My Orders Orders - FREDA ZAVALETA MD Rapid Strep A Screen (03/17/23 05:25) Influenza A And B By Pcr (03/17/23 05:25) Ibuprofen Tablet (Motrin Tablet) (03/17/23 05:25) Covid 19 Inhouse Test (03/17/23 05:25) Vital Signs/I&O 03/17/23 03/17/23 05:10 05:36 Temp 37.8 38.7 Pulse 102 Resp 16 B/P (MAP) 122/71 (88) Pulse Ox 97 O2 Delivery Room Air Progress Progress Note : Progress Note Seen and evaluated. We will get COVID and influenza screen as well as strep screen. Ibuprofen 800 mg p.o. ordered. Monitor patient. Differential includes viral upper respiratory infection, strep pharyngitis Departure Impression Primary Impression: Strep pharyngitis Additional Impression: URI (upper respiratory infection) Qualified Codes: J06.9 - Acute upper respiratory infection, unspecified Disposition: 01 HOME, SELF-CARE Condition: Stable Departure-Patient Inst. Decision time for Depature: 05:46 Referrals: CATY RILEY MD (PCP/Family) Primary Care Physician Patient Instructions: Upper Respiratory Infection ED, Strep Throat ED Add. Discharge Instructions: All discharge instructions reviewed with patient and/or family. Voiced understanding. You may take Tylenol/acetaminophen 1000 mg every 8 hours as needed for fever or pain. You may take ibuprofen 600 mg every 8 hours as needed for fever or pain. You may use Afrin nasal spray or the generic, 12 hour relief, 2 sprays to each nostril twice daily for 3 days only and then stop. Do not use more than 3 days. Follow-up with your DrCheryl in a few days for recheck. Drink plenty of fluids. Return for worse pain, fever, vomiting, weakness, breathing problems or other concerns as needed. Scripts Amoxicillin (Amoxicillin) 500 Mg Capsule 500 MG PO TID, #21 CAP 0 Refills Prov: FREDA ZAVALETA MD 03/17/23 FREDA ZAVALETA MD Mar 17, 2023 05:33
[2023-03-17] MEDS ORDERED: AMOX500C2 PO (06:03)
[2023-03-17] MEDS ORDERED: AMOXICILLIN 500 MG (POLYMOX) CAP PO STA (06:05)
[2023-03-17 06:15] VITALS: BP 111/68
== END 2023-03-17 06:15 | disposition home or self-care (01) ==
LOC: EDUNIT# 05:00 → ER 05:03
DX: J06.9 Acute upper respiratory infection, unspecified (principal); E66.9 Obesity, unspecified; F17.210 Nicotine dependence, cigarettes, uncomplicated; Z68.41 Body mass index [BMI] 40.0-44.9, adult; Z88.0 Allergy status to penicillin; Z88.2 Allergy status to sulfonamides; Z28.310 Unvaccinated for COVID-19
CPT/HCPCS: 87430; 87636; 99283

== ENCOUNTER 2023-10-11 19:41 | Emergency (ER) | payer MEDICAID ==
[~2023-10-11 19:41] MED LIST changes: +AMOX500C2 PO
--- NOTE | 2023-10-11 20:21 | ED Abdominal Pain ---
General Chief Complaint: Abdominal/GI Problems Stated Complaint: AB PAIN/ 9 DAYS POST TUBAL LIGATION Source of Information: Patient Exam Limitations: No Limitations History of Present Illness Date Seen by Provider: Oct 11, 2023 Time Seen by Provider: 20:19 Initial Comments Patient is a 33-year-old female who presents to the emergency department today with a chief complaint of lower abdominal pain. Patient had a tubal ligation by Dr. Nolan at [facility] on 02 October. She was only given lifting precautions for about a week. Today she lifted up a 30 pound box at work and had immediate onset of pain. She states she took some Tylenol it got a little bit better but then has recurred throughout the day causing cramping and discomfort. No nausea. No dysuria. No abnormal vaginal discharge. Has been a little constipated. no fevers or chills. She states movement makes it worse. Has not tried any ibuprofen. Ran out of of her hydrocodone on . Patient states the pain reminds her of when she had a "ovarian cyst" rupture. Last cyst was in December of this year. Timing/Duration: 12-24 Hours Severity/Quality: Moderate, Cramping, Sharp Location: Generalized Abdomen Radiation: No Radiation Activities at Onset: Other (Lifting at work) Modifying Factors: Worsens With Movement Associated Symptoms: Denies Symptoms Allergies and Home Medications Allergies Coded Allergies: bupropion (Verified Allergy, Severe, SEIZURE, 11/21/19) naltrexone (Verified Allergy, Severe, SEIZURE, 11/21/19) sulfamethoxazole (Verified Allergy, Intermediate, NAUSEA, 10/01/16) NAUSEA/VOMITING trimethoprim (Verified Allergy, Intermediate, NAUSEA, 10/01/16) NAUSEA/VOMITING Patient Home Medication List Home Medication List Reviewed: Yes Albuterol Sulfate (Ventolin Hfa) 1 Puff Puff, 2 PUFF INH Q4H Prescribed by: NIKOLAI HIGGINBOTHAM on 02/03/23 2130 Amoxicillin (Amoxicillin) 500 Mg Capsule, 500 MG PO TID Prescribed by: FREDA ZAVALETA on 03/17/23 0603 Azithromycin (Azithromycin) 250 Mg Tablet, 250 MG PO UD Prescribed by: NIKOLAI HIGGINBOTHAM on 02/06/23 1404 Benzonatate (Tessalon Perles) 100 Mg Capsule, 100-200 MG PO Q6H PRN for COUGH Prescribed by: RODRIGUEZ CACERES on 10/02/21 2240 Benzonatate (Tessalon Perles) 100 Mg Capsule, 200 MG PO TID Prescribed by: NIKOLAI HIGGINBOTHAM on 02/06/23 1404 Ferrous Sulfate (Ferrous Sulfate) 325 Mg Tablet, 325 MG PO DAILY Prescribed by: CATY RILEY on 02/19/21 0815 Ibuprofen (Ibu) 600 Mg Tablet, 600 MG PO Q6HR PRN for PAIN-MODERATE (5-7) Prescribed by: CATY RILEY on 02/19/21 0815 Ibuprofen (Ibuprofen) 800 Mg Tablet, 800 MG PO Q8H PRN for PAIN Prescribed by: NIKOLAI HIGGINBOTHAM on 03/07/22 2103 Magnesium Amino Acid Chelate (Magnesium) 100 Mg Tablet, 250 MG PO HS, (Reported) Entered as Reported by: GWENDOLYN HUITRON on 01/09/21 1632 Naproxen (Naproxen) 500 Mg Tablet.dr, 500 MG PO BID Prescribed by: MICHELL BELL on 11/17/21 1248 Ondansetron (Ondansetron Odt) 4 Mg Tab.rapdis, 4 MG SL Q4H PRN for NAUSEA/VOMITING Prescribed by: NIKOLAI HIGGINBOTHAM on 02/06/23 1404 Prednisone (Prednisone) 50 Mg Tab, 50 MG PO DAILY Prescribed by: NIKOLAI HIGGINBOTHAM on 02/03/23 2130 Vit/Iron Fumarate/FA ( Tablet) 1 Each Tablet, 1 EACH PO DAILY, (Reported) Entered as Reported by: GWENDOLYN HUITRON on 01/09/21 1631 Sertraline HCl (Zoloft) 50 Mg Tablet, 50 MG PO, (Reported) Entered as Reported by: YASMIN RIOS on 01/13/20 2258 Tramadol HCl (Ultram) 50 Mg Tablet, 50 MG PO Q4H Prescribed by: MICHELL BELL on 11/17/21 1249 Review of Systems Review of Systems Constitutional: see HPI EENTM: No Symptoms Reported Respiratory: No Symptoms Reported Cardiovascular: No Symptoms Reported Gastrointestinal: Abdominal Pain Genitourinary: No Symptoms Reported Musculoskeletal: no symptoms reported Skin: no symptoms reported Past Niliajf-Nyamea-Vyqqyg Hx Immunizations Up To Date Tetanus Booster (TDap): Less than 5yrs PED Vaccines UTD: Yes First/Initial COVID19 Vaccinat: N/A Second COVID19 Vaccination Irving: NONE Third COVID19 Vaccination Date: NONE Seasonal Allergies Seasonal Allergies: No Past Medical History Surgery/Hospitalization HX: L ANKLE SURGERY Surgeries: Yes (LEFT ANKLE TRIMALLEOLAR FX/ORIF 2017) Orthopedic Respiratory: No Currently Using CPAP: No Currently Using BIPAP: No Cardiac: No Neurological: Yes Headaches /Migraines Reproductive Disorders: Yes Female Reproductive Disorders: Ovarian Cyst, Polycystic Ovarian Dis Sexually Transmitted Disease: No HIV/AIDS: No Genitourinary: No Gastrointestinal: No Musculoskeletal: Yes (LEFT ANKLE TRIMALLEOLAR FX/ORIF) Chronic Back Pain, Fractures Endocrine: Yes (OBESITY) HEENT: No Loss of Vision: Bilateral Cancer: No Psychosocial: Yes Anxiety, Depression Integumentary: No Blood Disorders: No Adverse Reaction/Blood Tranf: No Family Medical History JOLIE 19 MOTHER Diabetes mellitus 19 MOTHER ENDOMETREAL 19 MOTHER FH: breast cancer in first degree relative Hypercholesterolemia 19 FATHER Hypertension 19 FATHER Malignant neoplasm of endometrium Physical Exam Vital Signs Vital Signs - First Documented 10/11/23 20:15 Temp 37.1 Pulse 91 Resp 14 B/P (MAP) 137/86 (103) Pulse Ox 99 O2 Delivery Room Air Capillary Refill : Height/Weight/BMI Height: 5'4.00" Weight: 240lbs. 0.0oz. [id number]; 41.00 BMI Method:Stated General Appearance: WD/WN, no apparent distress, obese Respiratory: lungs clear, normal breath sounds, no respiratory distress, no accessory muscle use Cardiovascular: regular rate, rhythm Gastrointestinal: soft; No abnormal bowel sounds, No distended; guarding (Voluntary); No rebound; tenderness (Suprapubic region) Neurologic/Psychiatric: alert, normal mood/affect, oriented x 3 Skin: normal color, warm/dry, other (Surgical wound sites healed well) Progress/Results/Core Measures Results/Orders My Orders Orders - REGLA MCKEON MD Ketorolac Injection (Ketorolac Injection (10/11/23 20:30) Rx-Hydrocodone/Apap 5-325 Mg (Rx-Vicodin (10/11/23 20:30) Vital Signs/I&O 10/11/23 20:15 Temp 37.1 Pulse 91 Resp 14 B/P (MAP) 137/86 (103) Pulse Ox 99 O2 Delivery Room Air Progress Progress Note : Time: 20:33 Progress Note Patient seen and evaluated by me. Evaluation today includes history and physical exam. Pertinent physical exam findings include well-developed well- nourished obese female in no acute distress. She has tender abdomen in the suprapubic region. No involuntary guarding or rebound tenderness. Her op sites have healed well. She does have a small greenish ecchymotic area in the left upper quadrant. Heart is regular, lungs are clear. Differential diagnosis includes postoperative pain, ovarian cyst rupture, I used [id number] ultrasound at the bedside to evaluate for free fluid behind the bladder. None was visible on transabdominal examination. Her vital signs are stable. Her pain is worse with palpation suggesting that this is more postoperative discomfort than anything related to ovarian cysts. Patient was offered Toradol IM and given a take-home pack of hydrocodone. Recommended to take naproxen or ibuprofen for pain and follow-up as scheduled with Dr. Nolan. No concerning findings for any other acute surgical process. All questions are sought and answered. Patient is stable for discharge. Departure Impression Primary Impression: Postoperative abdominal pain Disposition: HOME, SELF-CARE Condition: Stable Departure-Patient Inst. Decision time for Depature: 20:36 Referrals: CATY RILEY MD (PCP/Family) Primary Care Physician Patient Instructions: Postoperative Pain (DC) Add. Discharge Instructions: I have given you 4 hydrocodone tablets to take at home. Please take 1 every 6 hours, you can also take vaxv-tyy-kzqfwuk generic ibuprofen 3 tablets which is 600 mg with this medicine. Always take ibuprofen with food. Monitor for worsening symptoms, fever, painful urination, pain not controlled with medication, if any of these occur please contact Dr. Nolan's office or return to the emergency department for reevaluation. While needing to take hydrocodone you should be taking a stool softener. This m edication can cause constipation. Also increase your water intake. Please keep your follow-up appointment with Dr. Nolan as scheduled. Copy Copies To 1: CATY RILEY MD, KATHRYN M MD Oct 11, 2023 20:21
[2023-10-11] MEDS ORDERED: KETOROLAC INJ 60 MG/2 ML VIAL IM ONE (20:30)
[2023-10-11 20:48] VITALS: BP 127/89
== END 2023-10-11 20:47 | disposition home or self-care (01) ==
LOC: EDUNIT# 19:41 → ER 19:43
DX: G89.18 Other acute postprocedural pain (principal); R10.84 Generalized abdominal pain; E66.9 Obesity, unspecified; Z68.41 Body mass index [BMI] 40.0-44.9, adult
CPT/HCPCS: 96372; 99284